=== PATIENT | female | born 1975 | race Caucasian/White ===

== ENCOUNTER 2020-06-25 15:40 | Emergency (ER) | payer MEDICAID, SELFPAY ==
[2020-06-25 17:17] VITALS: BP 133/59; PULSE 85; RESP 16; TEMP 36.8; O2SAT 98; BMI 25.6
[2020-06-25 17:56] LABS: Glucose Urine UA NEG (NEG); Leukocyte Esterase Urine NEG (NEG); Nitrite Urine NEG (NEG); PH 5.5 (5.0-8.0); Specific Gravity - Urine >= 1.030 (1.005-1.025); Urine Blood NEG (NEG); Urine Ketones NEG (NEG); Urine Protein TRACE MG/DL (NEG-TRACE)
[2020-06-25 17:57] LABS: Appearance Urine CLEAR; Color Urine DARK YELLOW
[2020-06-25 18:06] LABS: Bacteria Urine 1+ /LPF; Mucus Urine 2+ /LPF; Squamous Epithelial Cell Urine 2+ /LPF; WBC Urine 0 /HPF (0-4)
[2020-06-25 18:23] LABS: MANUAL DIFF FLAG NO
[2020-06-25 18:25] LABS: Basophils Percent Auto 0.1 % (0-2); Eosinophils Percent Auto 0.5 % (0-4); Hematocrit 35.9 % (37-47); Hemoglobin 11.7 g/dl (12.0-16.0); Imm Gran Abs Auto 0.01 X10*3/uL (0.00-0.03); Imm Gran Pct Auto 0.1 % (0.0-0.4); Lymphocytes Absolute Auto 2.1 X10*3/uL (1.2-4.9); Lymphocytes Percent Auto 25.7 % (20-40); Mean Corpuscular HGB Conc 32.6 g/dl (31.0-35.0); Mean Corpuscular Hemoglobin 29.3 pg (27.0-33.0); Mean Corpuscular Volume 89.8 fL (80-98); Mean Platelet Volume 9.7 fL (9.4-12.3); Monocytes Absolute Auto 0.4 X10*3/uL (0.1-1.2); Monocytes Percent Auto 4.9 % (2-11); Neutrophils Absolute Auto 5.6 X10*3/uL (2.0-8.3); Neutrophils Percent Auto 68.7 % (45-73); Platelet Count 275 X10*3/uL (160-400); Red Cell Distribution Width 13.4 % (11.0-16.0); White Blood Count 8.2 X10*3/uL (4.8-10.8)
[2020-06-25 18:51] LABS: Anion Gap 14 (12-20); Blood Urea Nitrogen 8 mg/dL (9-16); Calcium 9.1 mg/dL (8.4-10.2); Carbon Dioxide 23 mmol/L (22-29); Chloride 106 mmol/L (96-108); Creatinine Clr Calc Pharmacy 92.4; Estimated Glomerular Filt Rate > 60; Glucose Random 118 mg/dL (60-115); Potassium 3.8 mmol/L (3.3-5.1); Sodium 139 mmol/L (135-145)
[2020-06-25 20:43] VITALS: BP 129/85; PULSE 123; RESP 18; TEMP 36.7; O2SAT 99
--- NOTE | 2020-06-25 20:50 | ED_ITS ---
HPI - Abdominal Pain General Chief Complaint: Abdominal Pain Stated Complaint: ?UTI Time Seen by Provider: 06/25/20 20:50 Source: patient Mode of arrival: ambulatory Limitations: no limitations History of Present Illness HPI narrative: 45 y/o female presenting with lower abdominal pain and lower back pain for the last 5 days. She also reports urinary frequency and feeling of a full bladder all the time. She is sexually active but is not concerned about STI and denies chance of . No vaginal discharge or bleeding. LMP 1 month ago. She denies N/V/D. She denies fevers or chills at home. She denies hematuria or flank pain. She has history of a UTI and states this feels similar. MD elicited complaint: abdominal pain Pertinent past history: past UTI Onset (ago): day(s) (5) Pain Consistency: constant Location: suprapubic Severity: moderate Pain scale (0-10): 7 Quality: cramping, aching and fullness Radiation: LLQ and back Migration to: no migration Exacerbating factors: movement Relieving factors: nothing Associated symptoms: denies other symptoms Related Data Patient : No Previous Rx's Medication Instructions Recorded cefuroxime axetil 250 mg PO BID #10 tab 06/25/20 ibuprofen 600 mg PO Q8H PRN #20 tab 06/25/20 phenazopyridine [Pyridium] 100 mg PO TID PRN #6 tab 06/25/20 Allergies Allergy/AdvReac Type Severity Reaction Status Date / Time No Known Allergies Allergy Unknown UNKNOWN Unverified 02/09/20 15:35 [NO KNOWN ALLERGIES] Review of Systems Review of Systems Constitutional: No Fever, No Chills ENT/Mouth: No sore throat, No Rhinorrhea, No Swallowing Difficulty Eyes: No Eye Pain, No Swelling, No Redness Cardiovascular: No Chest Pain, No SOB, No Orthopnea, No Edema Respiratory: No Cough, No Sputum, No Wheezing, No dyspnea Gastrointestinal: No Nausea, No Vomiting, No Diarrhea, + abdominal Pain, No Hematochezia, No Melena Genitourinary: No Dysuria, + Urinary Frequency, No Hematuria Musculoskeletal: No joint pain, + Myalgias Skin: No Skin Lesions, No rash Neuro: No Weakness, No Numbness, No Dizziness, No Headache Psych: No Anxiety/Panic, No Depression Heme/Lymph: No Bruising, No Lymphadenopathy Endocrine: No Polyuria, No Polydipsia Physical Exam Vital Signs: Vital Signs: Last Vital Signs Temp 98.0 F 06/25/20 20:43 Pulse 65 06/25/20 22:00 Resp 18 06/25/20 22:00 BP 103/66 06/25/20 22:00 Pulse Ox 98 06/25/20 22:00 Body Mass Index 25.6 Appearance: Alert. Oriented X3. No acute distress. Eyes: Pupils equal, round and reactive to light. ENT: Pharynx normal. Neck: Normal inspection. Neck supple. CVS: Normal heart rate and rhythm. Pulses normal. Respiratory: No respiratory distress. Breath sounds normal. Abdomen: Soft with suprapubic tenderness, +BS x4 Back: Lower back soft tissue tenderness, no CVA tenderness Skin: Skin warm and dry. Normal skin color. Normal skin turgor. No rashes. Extremities: No lower extremity edema. Neuro: Oriented X 3. No motor deficit. No sensory deficit. Course Course Course Narrative: 45 y/o female presenting with suprapubic pain, urinary frequency and low back pain x5 days. UA showing 1+ bacteria but no LE or nitrites. No hematuria, doubt kidney stones. Tachycardic to 120s, no fever, c/o suprapubic pain. She is non-toxic appearing. Labs are reassuring, no elevation in WBC, renal function is normal. Will check lactic acid and cultures. Will give IVF, Rocephin and dose of Pyridium now for bladder pain. Juan reassess. Reevaluation(s) Reevaluation #1: Lactic acid normal. After IVF and meds patient's pain is improved and HR down to 80's. She is stable for discharge with treatment for UTI. MDM - Abdominal Pain Lab Data Result diagrams: 06/25/20 18:19 06/25/20 18:19 Labs: Lab Results 06/25/20 06/25/20 06/25/20 Range/Units 17:49 18:19 18:19 WBC 8.2 (4.8-10.8) X10*3/uL RBC 4.00 L (4.20-5.50) X10*6/uL Hgb 11.7 L (12.0-16.0) g/dl Hct 35.9 L (37-47) % MCV 89.8 (80-98) fL MCH 29.3 (27.0-33.0) pg MCHC 32.6 (31.0-35.0) g/dl RDW 13.4 (11.0-16.0) % Plt Count 275 (160-400) X10*3/uL MPV 9.7 (9.4-12.3) fL Immature Gran % (Auto) 0.1 (0.0-0.4) % Neut % (Auto) 68.7 (45-73) % Lymph % (Auto) 25.7 (20-40) % [place] % (Auto) 4.9 (2-11) % Eos % (Auto) 0.5 (0-4) % Baso % (Auto) 0.1 (0-2) % Lymph # (Auto) 2.1 (1.2-4.9) X10*3/uL [place] # (Auto) 0.4 (0.1-1.2) X10*3/uL Eos # (Auto) 0.0 (0.0-0.4) X10*3/uL Baso # (Auto) 0.0 (0.0-0.2) X10*3/uL Abs Immat Gran (auto) 0.01 (0.00-0.03) X10*3/uL Absolute Neuts (auto) 5.6 (2.0-8.3) X10*3/uL Absolute Nucleated RBC 0.000 (0.0-0.012) X10*3/uL Nucleated RBC % (auto) 0.0 (0.0-0.2) /100WBC Sodium 139 (135-145) mmol/L Potassium 3.8 (3.3-5.1) mmol/L Chloride 106 (96-108) mmol/L Carbon Dioxide 23 (22-29) mmol/L Anion Gap 14 (12-20) BUN 8 L (9-16) mg/dL Creatinine 0.68 (0.5-1.4) mg/dL Estim Creat Clear Calc 92.4 Estimated GFR > 60 Random Glucose 118 H (60-115) mg/dL Lactic Acid (0.5-2.0) mmol/L Calcium 9.1 (8.4-10.2) mg/dL Urine Color DARK YELLOW Urine Appearance CLEAR Urine pH 5.5 (5.0-8.0) Ur Specific [employer] >= 1.030 H (1.005-1.025) Urine Protein TRACE (NEG-TRACE) MG/DL Urine Glucose (UA) NEG (NEG) MG/DL Urine Ketones NEG (NEG) MG/DL Urine Blood NEG (NEG) Urine Nitrite NEG (NEG) Ur Leukocyte Esterase NEG (NEG) Urine RBC 1-4 (0) /HPF Urine WBC 0 (0-4) /HPF Ur Squamous Epith Cells 2+ /LPF Urine Bacteria 1+ /LPF Urine Mucus 2+ /LPF Urine Test NEGATIVE (NEGATIVE) 06/25/20 Range/Units 21:24 WBC (4.8-10.8) X10*3/uL RBC (4.20-5.50) X10*6/uL Hgb (12.0-16.0) g/dl Hct (37-47) % MCV (80-98) fL MCH (27.0-33.0) pg MCHC (31.0-35.0) g/dl RDW (11.0-16.0) % Plt Count (160-400) X10*3/uL MPV (9.4-12.3) fL Immature Gran % (Auto) (0.0-0.4) % Neut % (Auto) (45-73) % Lymph % (Auto) (20-40) % [place] % (Auto) (2-11) % Eos % (Auto) (0-4) % Baso % (Auto) (0-2) % Lymph # (Auto) (1.2-4.9) X10*3/uL [place] # (Auto) (0.1-1.2) X10*3/uL Eos # (Auto) (0.0-0.4) X10*3/uL Baso # (Auto) (0.0-0.2) X10*3/uL Abs Immat Gran (auto) (0.00-0.03) X10*3/uL Absolute Neuts (auto) (2.0-8.3) X10*3/uL Absolute Nucleated RBC (0.0-0.012) X10*3/uL Nucleated RBC % (auto) (0.0-0.2) /100WBC Sodium (135-145) mmol/L Potassium (3.3-5.1) mmol/L Chloride (96-108) mmol/L Carbon Dioxide (22-29) mmol/L Anion Gap (12-20) BUN (9-16) mg/dL Creatinine (0.5-1.4) mg/dL Estim Creat Clear Calc Estimated GFR Random Glucose (60-115) mg/dL Lactic Acid 1.0 (0.5-2.0) mmol/L Calcium (8.4-10.2) mg/dL Urine Color Urine Appearance Urine pH (5.0-8.0) Ur Specific [employer] (1.005-1.025) Urine Protein (NEG-TRACE) MG/DL Urine Glucose (UA) (NEG) MG/DL Urine Ketones (NEG) MG/DL Urine Blood (NEG) Urine Nitrite (NEG) Ur Leukocyte Esterase (NEG) Urine RBC (0) /HPF Urine WBC (0-4) /HPF Ur Squamous Epith Cells /LPF Urine Bacteria /LPF Urine Mucus /LPF Urine Test (NEGATIVE) Discharge Plan Discharge Clinical Impression: Urinary tract infection Qualifiers: Urinary tract infection type: acute cystitis Hematuria presence: without hematuria Qualified Code(s): N30.00 - Acute cystitis without hematuria Patient Disposition: Home, Self-Care Instructions: Urinary Tract Infection in Women (ED) Additional Instructions: Your lab workup today was unremarkable. Take the prescribed antibiotics for UTI - start them tomorrow. You were given an IV dose while in the ER. Rest and stay hydrated. Take the prescribed medication as needed for pain and bladder spasm - this is known to cause your urine to turn orange. Take Motrin and/or Tylenol as needed for pain. Follow up with your doctor this week. No sex until you symptoms are completely resolved. If you pain worsens or if you develop any new, concerning symptom come back to the ER for further evaluation. Prescriptions: New cefuroxime axetil 250 mg tablet 250 mg PO BID Qty: 10 RF: 0 phenazopyridine [Pyridium] 100 mg tablet 100 mg PO TID PRN (Reason: pain) Qty: 6 RF: 0 ibuprofen 600 mg tablet 600 mg PO Q8H PRN (Reason: fever or pain) Qty: 20 RF: 0 Stand Alone Forms: Work/School Release [facility] Social History Social History Alcohol intake: never Smoking Status: Current every day smoker Substance Use Type: Marijuana Substance Use Frequency: Daily Last Used Substance: Just Prior to Admission Any prior treatment program specific to substance use: No Advance Directives: No Advance Directives Information Provided: Yes
[2020-06-25 21:24] LABS: UPreg QC Valid YES; Urine Pregnancy NEGATIVE (NEGATIVE)
[2020-06-25] MEDS: 0.9 % Sodium Chloride 1,000 ML 999 ML IVCONT (21:39)
[2020-06-25] MEDS: Phenazopyridine HCL 100 MG TABLET PO (21:40)
[2020-06-25] MEDS: cefTRIAXone sodium 1 GM in 0.9 % Sodium Chloride 50 ML IV (21:41)
[2020-06-25] MEDS: Ketorolac Tromethamine 30 MG/ML VIAL IVPUSH (21:41)
[2020-06-25] MEDS: Acetaminophen 325 MG TABLET 650 MG PO (21:41)
[2020-06-25 22:00] VITALS: BP 103/66; PULSE 65; RESP 18; O2SAT 98
[2020-06-25 23:26] VITALS: BP 100/60; PULSE 70; RESP 16; O2SAT 97
== END 2020-06-26 00:38 | disposition home or self-care (01) ==
PROVIDERS: Physician Assistant; Emergency Provider Emergency Medicine Emergency Medical Services
DX: N30.00 Acute cystitis without hematuria (principal); Z87.440 Personal history of urinary (tract) infections; F17.200 Nicotine dependence, unspecified, uncomplicated
CPT/HCPCS: 36415; 80048; 81001; 81025; 83605; 85025; 87040; 96361; 96365; 96375; 99284; 99285; J0696; J1885

== ENCOUNTER 2021-04-24 13:43 | Outpatient (REF) | payer MEDICAID, SELFPAY ==
--- NOTE | ~2021-04-24 | MM_ITS ---
EXAMINATION: MM DIAGNOSTIC DIGITAL BREAST TOMOSYNTHESIS, BILATERAL US BREAST LIMITED, RIGHT CLINICAL INFORMATION: Right breast mass 11 o'clock, near clavicle. The lifetime risk of breast cancer based on the Tyrer-Cuzick Model is 13.5%. COMPARISON: Mammography: None TECHNIQUE: Digital breast tomosynthesis was performed in both the craniocaudal and mediolateral oblique views along with computer-aided detection (CAD). Synthesized 2D images were generated from the tomosynthesis. Targeted right breast ultrasound. FINDINGS: The breasts are heterogeneously dense, which may obscure small masses (ACR BI-RADS breast composition Category c). MAMMOGRAPHY: There are no significant masses, abnormal calcifications, or other abnormalities. ULTRASOUND: Ultrasound examination of the right breast in the upper outer quadrant demonstrated a well-circumscribed, hypoechoic lesion without internal vascularity with mild distal sound enhancement and no distal sound shadowing measuring approximately 8 x 5 x 9 mm in size. This may represent a complex cyst or fibroadenoma and has a benign appearance. Recommend 6-month follow up ultrasound examination for continued surveillance. MM/MM tomosynthesis diagnostic BI IMPRESSION: 1. No suspicious mass identified in the region of palpable abnormality. 2. Well-circumscribed, hypoechoic lesion 10-o'clock position, 3 cm from the nipple, with the appearance of either a complex cyst or fibroadenoma. Recommend 6-month follow up ultrasound. ASSESSMENT: BI-RADS 3: Probably Benign Short-term interval follow up. RECOMMENDATION: Diagnostic ultrasound in 6 months. Results were discussed with the patient at time of visit. This patient's information was entered into a reminder system with a target due date for their next mammogram.
--- NOTE | ~2021-04-24 | US_ITS ---
EXAMINATION: US DIAGNOSTIC ULTRASOUND BREAST, RIGHT CLINICAL INFORMATION: Palpable abnormality right breast 11:00 position subclavicular.. COMPARISON: Mammography of same day. TECHNIQUE: Ultrasound of the breast is performed with real-time jane scale imaging and color Doppler. FINDINGS: Ultrasound examination of the right breast in the upper outer quadrant demonstrated a well-circumscribed hypoechoic lesion without internal vascularity with mild distal sound enhancement and no distal sound shadowing measuring approximately 8 x 5 x 9 mm in size. This may represent a complex cyst or fibroadenoma and has a benign appearance. Recommend 6 month follow-up ultrasound examination for continued surveillance. Results are discussed with the patient at time of visit. US/US breast RT limited IMPRESSION: No suspicious mass identified in region of palpable abnormality. Well-circumscribed hypoechoic lesion 10:00 position 3 cm from the nipple with the appearance of either complex cyst or fibroadenoma. Recommend 6 month follow-up ultrasound. ASSESSMENT: BI-RADS 3: Probably Benign RECOMMENDATION: Diagnostic ultrasound in 6 months.
== END 2021-04-24 13:44 | disposition home or self-care (01) ==
LOC: HO.MAMMO 13:43
PROVIDERS: Visit Provider Nurse Practitioner
DX: N63.11 Unspecified lump in the right breast, upper outer quadrant (principal)
CPT/HCPCS: 76642; 77062; 77066

== ENCOUNTER 2021-10-14 12:33 | Emergency (ER) | payer MEDICAID, SELFPAY ==
[2021-10-14 12:39] VITALS: BP 179/89; PULSE 116; RESP 17; TEMP 36.7; O2SAT 98; BMI 27.4
[2021-10-14 13:06] LABS: MANUAL DIFF FLAG NO
[2021-10-14 13:10] LABS: Basophils Percent Auto 0.1 % (0-2); Eosinophils Percent Auto 0.3 % (0-4); Hematocrit 43.8 % (37.0-47.0); Hemoglobin 14.8 g/dl (12.0-16.0); Imm Gran Abs Auto 0.02 X10*3/uL (0.00-0.03); Imm Gran Pct Auto 0.3 % (0.0-0.4); Lymphocytes Percent Auto 27.7 % (20-40); Mean Corpuscular HGB Conc 33.8 g/dl (31.0-35.0); Mean Corpuscular Hemoglobin 31.8 pg (27.0-33.0); Mean Corpuscular Volume 94.2 fL (80.0-98.0); Mean Platelet Volume 9.4 fL (9.4-12.3); Monocytes Absolute Auto 0.6 X10*3/uL (0.1-1.2); Monocytes Percent Auto 8.7 % (2-11); Neutrophils Absolute Auto 4.5 x10*3/uL (2.0-8.3); Neutrophils Percent Auto 62.9 % (45-73); Platelet Count 271 X10*3/uL (160-400); Red Blood Count 4.65 X10*6/uL (4.20-5.50); Red Cell Distribution Width 15.9 % (11.0-16.0); White Blood Count 7.1 X10*3/uL (4.8-10.8)
[2021-10-14 13:34] LABS: Ethanol < 10 mg/dL
[2021-10-14 13:52] LABS: Amphetamine Screen Urine Not Detected (Not Detect); Barbiturates, Urine Not Detected (Not Detect); Benzodiazepines Screen Urine Not Detected (Not Detect); Cannabinoid Screen Urine POSITIVE (Not Detect); Cocaine Screen Urine Not Detected (Not Detect); Fentanyl, urine Not Detected (Not Detect); Opiate Screen Urine Not Detected (Not Detect); Phencyclidine Screen Urine Not Detected (Not Detect)
--- NOTE | 2021-10-14 21:55 | ED_ITS ---
HPI - Nausea/Vomiting/Diarrhea General Chief complaint: ETOH/Substance Use Stated complaint: vomiting Time Seen by Provider: 10/14/21 21:24 Source: patient Mode of arrival: ambulatory Limitations: no limitations History of Present Illness HPI Narrative: usually drinks about 10 nips a day last drink was yesterday, has been working with her PCP to get off ETOH will do detox from home if she feels better MD elicited complaint: nausea, vomiting and abdominal pain Pertinent past history: alcohol abuse and pacreatitis Onset (ago): day(s) (3) Description of vomiting: watery Associated nausea: Yes Associated abdominal pain: Yes Location of pain: epigastric Pain consistency: constant Severity: moderate Quality: aching Exacerbating factors: eating and alcohol intake Relieving factors: none Context: alcohol abuse Associated symptoms: loss of appetite, malaise and nausea/vomiting Related Data Previous Rx's Medication Instructions Recorded cefuroxime axetil 250 mg tablet 250 mg PO BID #10 tab 06/25/20 ibuprofen 600 mg tablet 600 mg PO Q8H PRN #20 tab 06/25/20 phenazopyridine 100 mg tablet 100 mg PO TID PRN #6 tab 06/25/20 (Pyridium) chlordiazepoxide HCl 25 mg capsule 25 mg PO Q6-8H PRN #14 cap 10/14/21 famotidine 20 mg tablet (Pepcid) 20 mg PO DAILY PRN #30 tab 10/14/21 ondansetron 4 mg disintegrating 4 mg PO Q8H PRN #20 tab 10/14/21 tablet Allergies Allergy/AdvReac Type Severity Reaction Status Date / Time No Known Allergies Allergy Unknown UNKNOWN Unverified 02/09/20 15:35 [NO KNOWN ALLERGIES] Review of Systems Review of Systems: Constitutional : No Weight loss, No Fever, No Chills ENT/Mouth : No sore throat, No Rhinorrhea Eyes: No Swelling, No Redness Cardiovascular : No Chest Pain, No SOB, NoEdema Respiratory : No Cough, No Sputum, No Wheezing Gastrointestinal : Positive Nausea, Positive Vomiting, no Diarrhea, positive abdominal Pain, No Hematochezia, No Melena Genitourinary : No Dysuria, No Urinary Frequency, No Hematuria, No Urgency Musculoskeletal : No joint pain, No Myalgias, No Joint Swelling Skin : No Skin Lesions, No rash Neuro : No Weakness, No Numbness, No Dizziness, No Headache Psych : No Anxiety/Panic, No Depression Heme/Lymph: No Bruising, No Lymphadenopathy Endocrine : No Polyuria, No Polydipsia All other systems reviewed and are negative. Gastrointestinal: Gastrointestinal: Reports nausea PMFSH Past Medical History Attestation statement: The following information was validated with the patient. Medical History Alcohol abuse Anxiety Social History Social History (Updated 10/14/21 @ 22:00 by Nilda Parrish DO) Alcohol intake: current Alcohol intake frequency: 3 or more drinks per day A lcohol type: hard liquor Patient Tobacco Use Status: Tobacco use Unknown Use of substances other than those prescribed or required for medical reasons: No Substance Use Type: Marijuana Advance Directives: No Advance Directives Information Provided: No Physical Exam Vital Signs: Vital Signs: Last Vital Signs Temp 98.8 F 10/14/21 22:32 Pulse 70 10/14/21 22:32 Resp 12 10/14/21 22:32 BP 135/70 10/14/21 22:32 Pulse Ox 96 10/14/21 22:32 BMI result Body Mass Index 27.4 Appearance: Alert. Oriented X3. Anxious mild acute distress. Tearful no SI Eyes: Pupils equal, round and reactive to light. ENT: Pharynx mild dry MM Neck: Normal inspection. Neck supple. CVS: Normal heart rate and rhythm. Pulses normal. Respiratory: No respiratory distress. Breath sounds normal. Abdomen: Soft and mild epigastric ttp no rebound Skin: Skin warm and dry. Normal skin color. Normal skin turgor. Extremities: No lower extremity edema. No calf ttp Neuro: Oriented X 3. No motor deficit. No sensory deficit. slightly shaky Course Course Course Narrative: labs unremarkable at this time - if able to tolerate PO will DC home VS drastically improved feels better wants to go home, PO librium prior to DC until she can get Rx, daughter to come get patient MDM - Nausea/Vomiting/Diarrhea MDM Narrative Medical decision making narrative: 46 yo female with hx of ETOH abuse, pancreatitis here with c/o 3 days of n/v abdominal pain unable to eat or drink last drank 10 days ago hx of same in past at this time has plan in place with PCP to get off ETOH. will obtain basic labs, IVF x 2L, IV ativan 2mg, IV pepcid - dispo per results and clinical findings. Lab Data Result diagrams: 10/14/21 12:54 10/14/21 22:15 Labs: Lab Results 10/14/21 10/14/21 10/14/21 Range/Units 12:54 12:54 12:54 WBC 7.1 (4.8-10.8) X10*3/uL RBC 4.65 (4.20-5.50) X10*6/uL Hgb 14.8 (12.0-16.0) g/dl Hct 43.8 (37.0-47.0) % MCV 94.2 (80.0-98.0) fL MCH 31.8 (27.0-33.0) pg MCHC 33.8 (31.0-35.0) g/dl RDW 15.9 (11.0-16.0) % Plt Count 271 (160-400) X10*3/uL MPV 9.4 (9.4-12.3) fL Immature Gran % (Auto) 0.3 (0.0-0.4) % Neut % (Auto) 62.9 (45-73) % Lymph % (Auto) 27.7 (20-40) % [place] % (Auto) 8.7 (2-11) % Eos % (Auto) 0.3 (0-4) % Baso % (Auto) 0.1 (0-2) % Lymph # (Auto) 2.0 (1.2-4.9) X10*3/uL [place] # (Auto) 0.6 (0.1-1.2) X10*3/uL Eos # (Auto) 0.0 (0.0-0.4) X10*3/uL Baso # (Auto) 0.0 (0.0-0.2) X10*3/uL Abs Immat Gran (auto) 0.02 (0.00-0.03) X10*3/uL Absolute Neuts (auto) 4.5 (2.0-8.3) x10*3/uL Absolute Nucleated RBC 0.000 (0.0-0.012) X10*3/uL Nucleated RBC % (auto) 0.0 (0.0-0.2) /100WBC Sodium (135-145) mmol/L Potassium (3.3-5.1) mmol/L Chloride (96-108) mmol/L Carbon Dioxide (22-29) mmol/L Anion Gap (12-20) BUN (9-16) mg/dL Creatinine (0.5-1.4) mg/dL Estim Creat Clear Calc Estimated GFR Random Glucose (60-115) mg/dL Calcium (8.4-10.2) mg/dL Magnesium (1.6-2.6) mg/dL Total Bilirubin (0.0-1.0) mg/dL Direct Bilirubin (0.0-0.5) mg/dL AST (5-31) U/L ALT (0-31) U/L Alkaline Phosphatase (39-117) U/L Total Protein (6.5-8.0) g/dL Albumin (3.5-5.0) g/dL Lipase (8-78) U/L Urine Opiates Screen Not Detected (Not Detect) Urine Fentanyl Screen Not Detected (Not Detect) Ur Barbiturates Screen Not Detected (Not Detect) Ur Phencyclidine Scrn Not Detected (Not Detect) Ur Amphetamines Screen Not Detected (Not Detect) U Benzodiazepines Scrn Not Detected (Not Detect) Urine Cocaine Screen Not Detected (Not Detect) U Marijuana (THC) Screen POSITIVE H (Not Detect) Ethyl Alcohol < 10 mg/dL 10/14/21 Range/Units 22:15 WBC (4.8-10.8) X10*3/uL RBC (4.20-5.50) X10*6/uL Hgb (12.0-16.0) g/dl Hct (37.0-47.0) % MCV (80.0-98.0) fL MCH (27.0-33.0) pg MCHC (31.0-35.0) g/dl RDW (11.0-16.0) % Plt Count (160-400) X10*3/uL MPV (9.4-12.3) fL Immature Gran % (Auto) (0.0-0.4) % Neut % (Auto) (45-73) % Lymph % (Auto) (20-40) % [place] % (Auto) (2-11) % Eos % (Auto) (0-4) % Baso % (Auto) (0-2) % Lymph # (Auto) (1.2-4.9) X10*3/uL [place] # (Auto) (0.1-1.2) X10*3/uL Eos # (Auto) (0.0-0.4) X10*3/uL Baso # (Auto) (0.0-0.2) X10*3/uL Abs Immat Gran (auto) (0.00-0.03) X10*3/uL Absolute Neuts (auto) (2.0-8.3) x10*3/uL Absolute Nucleated RBC (0.0-0.012) X10*3/uL Nucleated RBC % (auto) (0.0-0.2) /100WBC Sodium 137 (135-145) mmol/L Potassium 3.8 (3.3-5.1) mmol/L Chloride 102 (96-108) mmol/L Carbon Dioxide 21 L (22-29) mmol/L Anion Gap 18 (12-20) BUN 12 (9-16) mg/dL Creatinine 0.67 (0.5-1.4) mg/dL Estim Creat Clear Calc 95.8 Estimated GFR > 60 Random Glucose 106 (60-115) mg/dL Calcium 9.5 (8.4-10.2) mg/dL Magnesium 2.4 (1.6-2.6) mg/dL Total Bilirubin 1.3 H (0.0-1.0) mg/dL Direct Bilirubin 0.5 (0.0-0.5) mg/dL AST 54 H (5-31) U/L ALT 30 (0-31) U/L Alkaline Phosphatase 124 H (39-117) U/L Total Protein 8.4 H (6.5-8.0) g/dL Albumin 4.7 (3.5-5.0) g/dL Lipase 45 (8-78) U/L Urine Opiates Screen (Not Detect) Urine Fentanyl Screen (Not Detect) Ur Barbiturates Screen (Not Detect) Ur Phencyclidine Scrn (Not Detect) Ur Amphetamines Screen (Not Detect) U Benzodiazepines Scrn (Not Detect) Urine Cocaine Screen (Not Detect) U Marijuana (THC) Screen (Not Detect) Ethyl Alcohol mg/dL Discharge Plan Discharge Clinical Impression: Alcohol withdrawal syndrome Qualifiers: Complication of substance-induced condition: uncomplicated Qualified Code(s): F10.230 - Alcohol dependence with withdrawal, uncomplicated Vomiting Qualifiers: Vomiting type: unspecified Nausea presence: with nausea Qualified Code(s): R11.2 - Nausea with vomiting, unspecified Patient Disposition: Home, Self-Care Instructions: Abuse of Alcohol (ED), Acute Nausea and Vomiting (ED) Additional Instructions: return to ED for any worsening symptoms or concerns labs unremarkable please follow up with your doctor avoid alcohol Prescriptions: New famotidine [Pepcid] 20 mg tablet 20 mg PO DAILY PRN (Reason: abdominal discomfort) Qty: 30 0RF ondansetron 4 mg tablet,disintegrating 4 mg PO Q8H PRN (Reason: nausea and vomiting) Qty: 20 0RF chlordiazepoxide HCl 25 mg capsule 25 mg PO Q6-8H PRN (Reason: alcohol withdrawal) Qty: 14 0RF Rx Instructions: partial fill okay No Action cefuroxime axetil 250 mg tablet 250 mg PO BID Qty: 10 0RF phenazopyridine [Pyridium] 100 mg tablet 100 mg PO TID PRN (Reason: pain) Qty: 6 0RF ibuprofen 600 mg tablet 600 mg PO Q8H PRN (Reason: fever or pain) Qty: 20 0RF Stand Alone Forms: Work/School Release
[2021-10-14] MEDS: 0.9 % Sodium Chloride 1,000 ML 999 ML IVCONT (22:21)
[2021-10-14] MEDS: Famotidine/PF 20 MG/2 ML VIAL IVPUSH (22:21)
[2021-10-14] MEDS: LORazepam 2 MG/ML VIAL IVPUSH (22:21)
[2021-10-14] MEDS: Magnesium Sulfate/H2O 2 GM/50 ML PIGGYBACK IV (22:21)
[2021-10-14] MEDS: ondansetron HCL 4 MG/2 ML VIAL IVPUSH (22:22)
[2021-10-14 22:32] VITALS: BP 135/70; PULSE 70; RESP 12; TEMP 37.1; O2SAT 96
[2021-10-14 22:47] LABS: Alanine Aminotransferase 30 U/L (0-31); Albumin Level 4.7 g/dL (3.5-5.0); Alkaline Phosphatase 124 U/L (39-117); Anion Gap 18 (12-20); Aspartate Amino Transferase 54 U/L (5-31); Bilirubin Direct 0.5 mg/dL (0.0-0.5); Bilirubin Total 1.3 mg/dL (0.0-1.0); Blood Urea Nitrogen 12 mg/dL (9-16); Calcium 9.5 mg/dL (8.4-10.2); Carbon Dioxide 21 mmol/L (22-29); Chloride 102 mmol/L (96-108); Creatinine Clr Calc Pharmacy 95.8; Estimated Glomerular Filt Rate > 60; Glucose Random 106 mg/dL (60-115); Lipase 45 U/L (8-78); Magnesium 2.4 mg/dL (1.6-2.6); Potassium 3.8 mmol/L (3.3-5.1); Sodium 137 mmol/L (135-145); Total Protein 8.4 g/dL (6.5-8.0)
[2021-10-15] MEDS: chlordiazePOXIDE HCl 25 MG CAPSULE PO (00:13)
== END 2021-10-15 00:42 | disposition home or self-care (01) ==
PROVIDERS: Emergency Provider Emergency Medicine; PCP Nurse Practitioner
DX: F10.230 Alcohol dependence with withdrawal, uncomplicated (principal); Y90.0 Blood alcohol level of less than 20 mg/100 ml; R11.2 Nausea with vomiting, unspecified; F12.90 Cannabis use, unspecified, uncomplicated
CPT/HCPCS: 36415; 80048; 80076; 80307; 82077; 83690; 83735; 85025; 96361; 96365; 96366; 96375; 99284; J2060; J2405; J3475

== ENCOUNTER 2021-10-23 12:42 | Outpatient (REF) | payer MEDICAID, SELFPAY ==
--- NOTE | ~2021-10-23 | US_ITS ---
EXAMINATION: US DIAGNOSTIC ULTRASOUND BREAST, RIGHT CLINICAL INFORMATION: Six-month follow up right breast nodule. COMPARISON: 04/24/2021 TECHNIQUE: Targeted right breast ultrasound upper outer quadrant. FINDINGS: At the 10 o'clock position of the right breast approximately 3 cm from the nipple there is again noted to be a well-circumscribed hypoechoic lesion without distal sound shadowing or enhancement measuring approximately 7 x 5 x 9 mm in size. It is wider than it is tall without vascularity. The appearance is stable from study of 04/24/2021. Results are discussed with the patient at time of visit. US/US breast RT limited IMPRESSION: Stable appearance of right breast density 10 o'clock position 3 cm from nipple. Six-month followup bilateral mammography and targeted right breast ultrasound recommended. ASSESSMENT: BI-RADS 3: Probably Benign. RECOMMENDATION: Diagnostic mammography in 6 months. Right breast ultrasound. This patient's information was entered into a reminder system with a target due date for their next mammogram.
== END 2021-10-23 12:43 | disposition home or self-care (01) ==
LOC: HO.MAMMO 12:42
PROVIDERS: PCP Nurse Practitioner; Visit Provider Nurse Practitioner
DX: N63.11 Unspecified lump in the right breast, upper outer quadrant (principal)
CPT/HCPCS: 76642

== ENCOUNTER 2021-11-22 15:19 | Inpatient (IN) | payer MEDICAID, SELFPAY ==
--- NOTE | ~2021-11-22 | CT_ITS ---
EXAMINATION: CT ABDOMEN AND PELVIS WITHOUT CONTRAST CLINICAL INFORMATION: Acute elevated LFT with upper abdominal pain COMPARISON: 01/01/2020 TECHNIQUE: Multidetector volumetric imaging was performed from the superior aspect of the liver through the pubic symphysis. Sagittal and coronal reformatted images were obtained on the technologist's workstation. This CT examination was performed using dose optimization techniques as appropriate, variously including the following: *Automated exposure control *Adjustment of mA and/or kV according to patient size (this includes techniques or standardized protocols for targeted exams where dose is matched to indication/reason for exam; i.e. extremities or head) *Use of iterative reconstruction technique DLP: 495 mGy-cm FINDINGS: LUNG BASES: The visualized lung bases are unremarkable. LIVER, GALLBLADDER, AND BILIARY TREE: The liver is normal in size and shape. There is relatively low attenuation. No focal hepatic lesion or biliary ductal dilatation is present. The gallbladder is unremarkable with no evidence of radiopaque gallstones, gallbladder wall thickening, or obvious pericholecystic inflammatory changes. PANCREAS: Unremarkable. SPLEEN: Unremarkable. ADRENAL GLANDS: Unremarkable. KIDNEYS AND URETERS: The kidneys are normal in size, shape, and attenuation. No hydronephrosis, hydroureter, or calculi seen. No perinephric stranding. BLADDER: Unremarkable. GASTROINTESTINAL TRACT: The stomach is unremarkable. Normal caliber small bowel. No obstruction. Normal appendix. No colonic wall thickening or inflammatory change. No free air or free fluid. ABDOMINAL WALL: No significant hernia is appreciated. LYMPH NODES: Normal. VASCULAR: Unremarkable. PELVIC VISCERA: Retroverted uterus. No adnexal mass. OSSEOUS STRUCTURES: No acute or suspicious osseous abnormality. CT/CT abdomen pelvis wo con IMPRESSION: No acute findings in the abdomen or pelvis. No inflammatory changes. Relatively low-attenuation of the liver suggestive of hepatic steatosis. Fleischner guidelines were followed.
--- NOTE | ~2021-11-22 | US_ITS ---
EXAMINATION: US ABDOMEN LIMITED CLINICAL INFORMATION: Evaluate for cholecystitis. COMPARISON: CT abdomen/pelvis 01/01/2020. TECHNIQUE: Real-time imaging of the gallbladder. US/US abdomen limited FINDINGS/IMPRESSION: Targeted sonographic evaluation of the gallbladder. No evidence of cholelithiasis, wall thickening nor pericholecystic free fluid. The common bile duct is mildly prominent measuring up to 0.9 cm in diameter. Further evaluation with MRCP could be obtained if choledocholithiasis is suspected.
--- NOTE | 2021-11-22 15:24 | ECG_ITS ---
Test Reason : cp Blood Pressure : / mmHG Vent. Rate : 101 BPM Atrial Rate : 101 BPM P-R Int : 146 ms QRS Dur : 094 ms QT Int : 362 ms P-R-T Axes : 054 001 025 degrees QTc Int : 469 ms Sinus tachycardia Incomplete right bundle branch block Borderline ECG When compared with ECG of 01-JAN-2020 19:08, No significant change was found Referred By: Generic ED Physician Electronically Signed By:IRVIN SOLIS
[2021-11-22 15:25] VITALS: BP 152/99; PULSE 111; RESP 18; TEMP 36.6; O2SAT 98; BMI 27.4
[2021-11-22 15:48] LABS: MANUAL DIFF FLAG NO
[2021-11-22 15:49] LABS: Basophils Percent Auto 0.4 % (0-2); Eosinophils Percent Auto 0.4 % (0-4); Hematocrit 42.6 % (37.0-47.0); Hemoglobin 14.6 g/dl (12.0-16.0); Imm Gran Abs Auto 0.01 X10*3/uL (0.00-0.03); Imm Gran Pct Auto 0.2 % (0.0-0.4); Lymphocytes Absolute Auto 0.8 X10*3/uL (1.2-4.9); Lymphocytes Percent Auto 14.6 % (20-40); Mean Corpuscular HGB Conc 34.3 g/dl (31.0-35.0); Mean Corpuscular Hemoglobin 32.1 pg (27.0-33.0); Mean Corpuscular Volume 93.6 fL (80.0-98.0); Mean Platelet Volume 9.2 fL (9.4-12.3); Monocytes Absolute Auto 0.3 X10*3/uL (0.1-1.2); Monocytes Percent Auto 5.2 % (2-11); Neutrophils Absolute Auto 4.1 x10*3/uL (2.0-8.3); Neutrophils Percent Auto 79.2 % (45-73); Platelet Count 226 X10*3/uL (160-400); Red Blood Count 4.55 X10*6/uL (4.20-5.50); Red Cell Distribution Width 15.7 % (11.0-16.0); White Blood Count 5.2 X10*3/uL (4.8-10.8)
[2021-11-22 16:10] LABS: Alanine Aminotransferase 668 U/L (0-31); Albumin Level 4.4 g/dL (3.5-5.0); Alkaline Phosphatase 154 U/L (39-117); Anion Gap 18 (12-20); Aspartate Amino Transferase 1931 U/L (5-31); Bilirubin Direct 0.4 mg/dL (0.0-0.5); Bilirubin Total 0.7 mg/dL (0.0-1.0); Blood Urea Nitrogen 11 mg/dL (9-16); Calcium 8.6 mg/dL (8.4-10.2); Carbon Dioxide 21 mmol/L (22-29); Chloride 101 mmol/L (96-108); Creatinine Clr Calc Pharmacy 86.8; Estimated Glomerular Filt Rate > 60; Glucose Random 125 mg/dL (60-115); Potassium 3.9 mmol/L (3.3-5.1); Sodium 136 mmol/L (135-145); Total Protein 7.8 g/dL (6.5-8.0)
[2021-11-22 16:12] LABS: Troponin-I High Sensitivity < 3.5 ng/L (<3.5-17.0)
[2021-11-22 16:19] LABS: COVID-19 Test Negative (Negative)
[2021-11-22 16:20] LABS: IDNOW Serial# 16C4AD1C; Influenza A Negative (Negative); Influenza B2 Negative (Negative)
[2021-11-22 19:10] LABS: Lipase 68 U/L (8-78)
--- NOTE | 2021-11-22 19:49 | ED.CHESTPAIN ---
HPI - Chest Pain General Chief Complaint: Chest Pain Stated Complaint: Chest pressure/Nausea/Vomiting Time Seen by Provider: 11/22/21 18:50 Source: patient Mode of arrival: ambulatory Limitations: no limitations History of Present Illness HPI narrative: patient alcoholic drink about car every day with history of pancreatitis in the past comes here for last 5 days of upper abdominal pain mostly on the right side with as such with nausea and vomiting unable to eat much because of vomiting last time patient had food was 3 days ago no fever no chills no radiation pain to the back no abdominal distension no chest pain/ shortness of breath for last 4 days patient has been taking Tylenol 2 tablets every 3-4 hours. No history of hepatitis Related Data Previous Rx's Medication Instructions Recorded cefuroxime axetil 250 mg tablet 250 mg PO BID #10 tabs 06/25/20 ibuprofen 600 mg tablet 600 mg PO Q8H PRN fever or pain 06/25/20 #20 tabs phenazopyridine 100 mg tablet 100 mg PO TID PRN pain 6 doses #6 06/25/20 (Pyridium) tabs chlordiazepoxide HCl 25 mg capsule 25 mg PO Q6-8H PRN alcohol 10/14/21 withdrawal #14 caps famotidine 20 mg tablet (Pepcid) 20 mg PO DAILY PRN abdominal 10/14/21 discomfort #30 tabs ondansetron 4 mg disintegrating 4 mg PO Q8H PRN nausea and 10/14/21 tablet vomiting #20 tabs Allergies Allergy/AdvReac Type Severity Reaction Status Date / Time No Known Allergies Allergy Unknown UNKNOWN Unverified 02/09/20 15:35 [NO KNOWN ALLERGIES] Review of Systems Review of Systems: Yes all other systems are reviewed and are negative PMFSH Past Medical History Medical History Alcohol abuse Anxiety Social History Social History Alcohol intake: current Alcohol intake frequency: 0-2 drinks per day Alcohol type: hard liquor Patient Tobacco Use Status: Current someday Tobacco user Use of substances other than those prescribed or required for medical reasons: No Substance Use Type: Marijuana Advance Directives: No Advance Directives Information Provided: Yes Patient : No Physical Exam Vital Signs: Vital Signs: Last Vital Signs Temp 97.8 F 11/22/21 15:25 Pulse 83 11/22/21 22:49 Resp 16 11/22/21 22:49 BP 160/82 H 11/22/21 22:49 Pulse Ox 97 11/22/21 22:49 O2 Del Method 11/22/21 22:49 BMI result Body Mass Index 27.4 Appearance: Alert. Oriented X3. No acute distress. Eyes: PERRLA, No Nystagmus no pallor or icterus ENT: Pharynx normal. Oral Mucosa moist Neck: Normal inspection. Neck supple. CVS: Normal heart rate and rhythm. Pulses normal. Respiratory: No respiratory distress. Equal air entry bilateral, no wheezing/rales/rhonchi Abdomen: Soft, tender right upper quadrant with guarding no rebound tenderness Bowel sounds are present, no mass palpable, no CVA tenderness Skin: Skin warm and dry. Normal skin color. Normal skin turgor. Extremities: No lower extremity edema. No calf tenderness Neuro: Oriented X 3. No motor deficit. MDM - Chest Pain MDM Narrative Medical decision making narrative: 1 am Patient with acute hepatitis history of alcohol abuse ultrasound negative for gallstones and CT scan also negative for any acute patient been taking Tylenol for last few days and in the past also used to take Tylenol 1-2 tablets twice daily possible patient has Tylenol toxicity along with alcohol hepatitis will admit patient for further evaluation Tylenol level is pending ammonia level also ordered Dr. Francois rose to check Tylenol level Medical Records Data Attestation: I reviewed the patient's medical records. Lab Data Attestation: I reviewed the patient's lab results. Result diagrams: 11/22/21 15:43 11/22/21 15:43 Labs: Lab Results 11/22/21 11/22/21 11/22/21 Range/Units 15:43 15:43 15:43 WBC 5.2 (4.8-10.8) X10*3/uL RBC 4.55 (4.20-5.50) X10*6/uL Hgb 14.6 (12.0-16.0) g/dl Hct 42.6 (37.0-47.0) % MCV 93.6 (80.0-98.0) fL MCH 32.1 (27.0-33.0) pg MCHC 34.3 (31.0-35.0) g/dl RDW 15.7 (11.0-16.0) % Plt Count 226 (160-400) X10*3/uL MPV 9.2 L (9.4-12.3) fL Immature Gran % (Auto) 0.2 (0.0-0.4) % Neut % (Auto) 79.2 H (45-73) % Lymph % (Auto) 14.6 L (20-40) % [place] % (Auto) 5.2 (2-11) % Eos % (Auto) 0.4 (0-4) % Baso % (Auto) 0.4 (0-2) % Lymph # (Auto) 0.8 L (1.2-4.9) X10*3/uL [place] # (Auto) 0.3 (0.1-1.2) X10*3/uL Eos # (Auto) 0.0 (0.0-0.4) X10*3/uL Baso # (Auto) 0.0 (0.0-0.2) X10*3/uL Abs Immat Gran (auto) 0.01 (0.00-0.03) X10*3/uL Absolute Neuts (auto) 4.1 (2.0-8.3) x10*3/uL Absolute Nucleated RBC 0.000 (0.0-0.012) X10*3/uL Nucleated RBC % (auto) 0.0 (0.0-0.2) /100WBC Sodium 136 (135-145) mmol/L Potassium 3.9 (3.3-5.1) mmol/L Chloride 101 (96-108) mmol/L Carbon Dioxide 21 L (22-29) mmol/L Anion Gap 18 (12-20) BUN 11 (9-16) mg/dL Creatinine 0.74 (0.5-1.4) mg/dL Estim Creat Clear Calc 86.8 Estimated GFR > 60 Random Glucose 125 H (60-115) mg/dL Calcium 8.6 D (8.4-10.2) mg/dL Total Bilirubin 0.7 (0.0-1.0) mg/dL Direct Bilirubin 0.4 (0.0-0.5) mg/dL AST 1931 H (5-31) U/L ALT 668 H (0-31) U/L Alkaline Phosphatase 154 H D (39-117) U/L Troponin I High Sens < 3.5 (<3.5-17.0) ng/L Total Protein 7.8 (6.5-8.0) g/dL Albumin 4.4 (3.5-5.0) g/dL Lipase 68 (8-78) U/L COVID-19 (OLIVIA) (Negative) COVID-19 Clin Com Influenza Type A (OPAL) (Negative) Influenza Type B (OPAL) (Negative) Influenza A & B Note 11/22/21 11/22/21 Range/Units 15:43 15:43 WBC (4.8-10.8) X10*3/uL RBC (4.20-5.50) X10*6/uL Hgb (12.0-16.0) g/dl Hct (37.0-47.0) % MCV (80.0-98.0) fL MCH (27.0-33.0) pg MCHC (31.0-35.0) g/dl RDW (11.0-16.0) % Plt Count (160-400) X10*3/uL MPV (9.4-12.3) fL Immature Gran % (Auto) (0.0-0.4) % Neut % (Auto) (45-73) % Lymph % (Auto) (20-40) % [place] % (Auto) (2-11) % Eos % (Auto) (0-4) % Baso % (Auto) (0-2) % Lymph # (Auto) (1.2-4.9) X10*3/uL [place] # (Auto) (0.1-1.2) X10*3/uL Eos # (Auto) (0.0-0.4) X10*3/uL Baso # (Auto) (0.0-0.2) X10*3/uL Abs Immat Gran (auto) (0.00-0.03) X10*3/uL Absolute Neuts (auto) (2.0-8.3) x10*3/uL Absolute Nucleated RBC (0.0-0.012) X10*3/uL Nucleated RBC % (auto) (0.0-0.2) /100WBC Sodium (135-145) mmol/L Potassium (3.3-5.1) mmol/L Chloride (96-108) mmol/L Carbon Dioxide (22-29) mmol/L Anion Gap (12-20) BUN (9-16) mg/dL Creatinine (0.5-1.4) mg/dL Estim Creat Clear Calc Estimated GFR Random Glucose (60-115) mg/dL Calcium (8.4-10.2) mg/dL Total Bilirubin (0.0-1.0) mg/dL Direct Bilirubin (0.0-0.5) mg/dL AST (5-31) U/L ALT (0-31) U/L Alkaline Phosphatase (39-117) U/L Troponin I High Sens (<3.5-17.0) ng/L Total Protein (6.5-8.0) g/dL Albumin (3.5-5.0) g/dL Lipase (8-78) U/L COVID-19 (OLIVIA) Negative (Negative) COVID-19 Clin Com See Note Influenza Type A (OPAL) Negative (Negative) Influenza Type B (OPAL) Negative (Negative) Influenza A & B Note See Note Discharge Plan Discharge Clinical Impression: Acute hepatitis Patient Disposition: Admitted As Inpatient
[2021-11-22] MEDS: 0.9 % Sodium Chloride 1,000 ML 999 ML IV (21:05)
[2021-11-22] MEDS: ondansetron HCL 4 MG/2 ML VIAL IVPUSH (21:05)
[2021-11-22 21:06] VITALS: RESP 16
[2021-11-22] MEDS: Famotidine/PF 20 MG/2 ML VIAL IVPUSH (21:06)
[2021-11-22] MEDS: Morphine Sulfate 4 MG/ML CARTRIDGE IVPUSH (21:06)
[2021-11-22 22:49] VITALS: BP 160/82; PULSE 83; RESP 16; O2SAT 97
--- NOTE | 2021-11-23 00:46 | PM.IMHP ---
History of Present Illness Date of Service: 11/23/21 Chief Complaint: abd pain This is a 46-year-old female with past medical history of alcohol abuse, depression anxiety, opiate use disorder on Suboxone who presents to the hospital with complaints of abdominal pain. Patient reports that her symptoms started on Thursday, initially started with nausea vomiting and abdominal pain across the abdomen, then she developed multiple episodes of vomiting. She denies diarrhea, but still has nausea vomiting. Patient reports her last drink was 36 hours ago, has history of alcohol withdrawals with no call withdrawal seizures, otherwise denies any fever no chills, no chest pain, no shortness of breath, no urinary symptoms but reports smelly urine. and no lower extremity edema. Patient is very anxious, crying, and feels ignored. She does report that she has been taking a lot of Tylenol about 2-3 every 3 hours for the pain in the abdomen. Vitals reviewed showed tachycardia with a heart rate of 111, Labs reviewed showed AST of 1931, ALT of 668, alk-phos of 154, 7 of level less than 1, salicylate level less than [address] shows no acute findings in the abdomen or pelvis, noninflammatory changes Review of Systems Review of Systems: Yes all other systems are reviewed and are negative [facility] Medical History (Updated 11/23/21 @ 06:42 by Frank Vincent MD) Alcohol abuse Anxiety Opioid use disorder Family History (Updated 11/23/21 @ 06:42 by Frank Vincent MD) Other No family history of coronary artery disease Surgical History (Updated 11/23/21 @ 06:42 by Frank Vincent MD) No pertinent past surgical history Social History Alcohol intake: current Alcohol intake frequency: 0-2 drinks per day Alcohol type: hard liquor Patient Tobacco Use Status: Current someday Tobacco user Use of substances other than those prescribed or required for medical reasons: No Substance Use Type: Marijuana Advance Directives: No Advance Directives Information Provided: Yes Patient : No Meds Allergies Allergy/AdvReac Type Severity Reaction Status Date / Time No Known Allergies Allergy Unknown UNKNOWN Unverified 02/09/20 15:35 [NO KNOWN ALLERGIES] Home Medications Medication Instructions Recorded Confirmed Last Taken Type acamprosate 333 mg tablet,delayed 2 tab PO TID 11/23/21 11/23/21 Unknown History release buprenorphine 8 mg-naloxone 2 mg 2 strip sublingual DAILY 11/23/21 11/23/21 Unknown History sublingual film (Suboxone) folic acid 1 mg tablet 1 tab PO DAILY 11/23/21 11/23/21 Unknown History gabapentin 300 mg capsule 1 cap PO TID 11/23/21 11/23/21 Unknown History multivitamin 1 tab PO DAILY 11/23/21 11/23/21 Unknown History paroxetine HCl 40 mg tablet 1 tab PO DAILY 11/23/21 11/23/21 Unknown History thiamine HCl (vitamin B1) 100 mg 1 tab PO DAILY 11/23/21 11/23/21 Unknown History tablet Physical Exam Vital Signs and Narrative: Vital Signs: Last Vital Signs Temp 97.8 F 11/22/21 15:25 Pulse 83 11/22/21 22:49 Resp 16 11/22/21 22:49 BP 160/82 H 11/22/21 22:49 Pulse Ox 97 11/22/21 22:49 O2 Del Method 11/22/21 22:49 BMI result Body Mass Index 27.4 Results Labs CBC and Chem 7: 11/22/21 15:43 11/22/21 15:43 Labs: Laboratory Results - last 24 hr 11/22/21 11/22/21 11/22/21 15:43 15:43 15:43 MCV 93.6 MCH 32.1 MCHC 34.3 RDW 15.7 Plt Count 226 MPV 9.2 L Immature Gran % (Auto) 0.2 Neut % (Auto) 79.2 H Lymph % (Auto) 14.6 L [place] % (Auto) 5.2 Eos % (Auto) 0.4 Baso % (Auto) 0.4 Lymph # (Auto) 0.8 L [place] # (Auto) 0.3 Eos # (Auto) 0.0 Baso # (Auto) 0.0 Abs Immat Gran (auto) 0.01 Absolute Neuts (auto) 4.1 Absolute Nucleated RBC 0.000 Nucleated RBC % (auto) 0.0 Anion Gap 18 Estim Creat Clear Calc 86.8 Estimated GFR > 60 Random Glucose 125 H Calcium 8.6 D Total Bilirubin 0.7 Direct Bilirubin 0.4 AST 1931 H ALT 668 H Alkaline Phosphatase 154 H D Troponin I High Sens < 3.5 Total Protein 7.8 Albumin 4.4 Lipase 68 COVID-19 (OLIVIA) COVID-19 Clin Com Influenza Type A (OPAL) Influenza Type B (OPAL) Influenza A & B Note 11/22/21 11/22/21 15:43 15:43 MCV MCH MCHC RDW Plt Count MPV Immature Gran % (Auto) Neut % (Auto) Lymph % (Auto) [place] % (Auto) Eos % (Auto) Baso % (Auto) Lymph # (Auto) [place] # (Auto) Eos # (Auto) Baso # (Auto) Abs Immat Gran (auto) Absolute Neuts (auto) Absolute Nucleated RBC Nucleated RBC % (auto) Anion Gap Estim Creat Clear Calc Estimated GFR Random Glucose Calcium Total Bilirubin Direct Bilirubin AST ALT Alkaline Phosphatase Troponin I High Sens Total Protein Albumin Lipase COVID-19 (OLIVIA) Negative COVID-19 Clin Com See Note Influenza Type A (OPAL) Negative Influenza Type B (OPAL) Negative Influenza A & B Note See Note Imaging Radiologist's Impressions: Impressions Abdomen Ultrasound 11/22/21 20:37 FINDINGS/IMPRESSION: Targeted sonographic evaluation of the gallbladder. No evidence of cholelithiasis, wall thickening nor pericholecystic free fluid. The common bile duct is mildly prominent measuring up to 0.9 cm in diameter. Further evaluation with MRCP could be obtained if choledocholithiasis is suspected. Abdomen/Pelvis CT 11/22/21 22:45 IMPRESSION: No acute findings in the abdomen or pelvis. No inflammatory changes. Relatively low-attenuation of the liver suggestive of hepatic steatosis. Fleischner guidelines were followed. Assessment and Plan (1) Acute hepatitis: Status: Acute (2) Alcohol abuse with withdrawal: Status: Acute Plan 46-year-old female with past medical history of alcohol abuse, drinks about 1 L of vodka daily presents to the hospital with abdominal pain nausea or vomiting # acute hepatitis - likely secondary to alcohol abuse with AST more elevated than ALT - histamine open, salicylate level negative although does report that she has been taking significant amount of estimate of in daily to control abdominal pain - GI consulted - hepatitis panel sent - follow LFTs # alcohol abuse with withdrawal - will start her on Ativan protocol for alcohol withdrawal - thiamine and folic acid supplement - monitor for withdrawal seizures # anxiety and depression - continue home medications of paroxetine DVT prophylaxis: Heparin subQ Quality Stroke Does the patient have a stroke diagnosis?: No VTE Prior VTE?: No VTE Risk Level:: Medical - moderate - high VTE Device Contraindication: Treatment Not Indicated VTE Drug Contraindication: N/A - Med Ordered
[2021-11-23] MEDS: ondansetron HCL 4 MG/2 ML VIAL IVPUSH (00:48)
[2021-11-23] MEDS: LORazepam 2 MG/ML VIAL 1 MG IVPUSH (00:48)
[2021-11-23] MEDS: Heparin Sodium,Porcine 5,000 UNIT/ML VIAL 5000 UNIT SUBCUT ×2 (01:53→11:36)
[2021-11-23] MEDS: LORazepam 1 MG TABLET 2 MG PO (01:53)
[2021-11-23] MEDS: Lactated Ringers 1,000 ML 100 ML IVCONT ×3 (01:53→20:49)
[2021-11-23 02:04] LABS: Prothrombin Time 11.6 SEC (10.0-13.1)
[2021-11-23 02:07] LABS: Partial Thromboplastin Time 29.8 SEC (24.1-38.0)
[2021-11-23 02:16] LABS: Ammonia 36 umol/L (13-55)
[2021-11-23 02:23] LABS: Acetaminophen LAB < 1 mcg/mL (<30); Salicylate < 5.0 mg/dL (15-30)
[2021-11-23 06:29] VITALS: BP 129/87; PULSE 98; RESP 12; TEMP 36.7; O2SAT 96
[2021-11-23] MEDS: LORazepam 1 MG TABLET PO ×4 (06:47→18:20)
--- NOTE | 2021-11-23 07:10 | PC.NURSE ---
Report received from Eliseo, RNs
--- NOTE | 2021-11-23 07:10 | PC.NURSE ---
RN gave report to Lesley SKELTON and Jojo SKELTON
[2021-11-23 07:12] LABS: MANUAL DIFF FLAG NO
[2021-11-23 07:17] LABS: Basophils Percent Auto 0.3 % (0-2); Eosinophils Absolute Auto 0.1 X10*3/uL (0.0-0.4); Eosinophils Percent Auto 1.5 % (0-4); Hematocrit 42.4 % (37.0-47.0); Hemoglobin 14.6 g/dl (12.0-16.0); Imm Gran Abs Auto 0.01 X10*3/uL (0.00-0.03); Imm Gran Pct Auto 0.3 % (0.0-0.4); Lymphocytes Absolute Auto 1.3 X10*3/uL (1.2-4.9); Lymphocytes Percent Auto 39.3 % (20-40); Mean Corpuscular HGB Conc 34.4 g/dl (31.0-35.0); Mean Corpuscular Hemoglobin 32.5 pg (27.0-33.0); Mean Corpuscular Volume 94.4 fL (80.0-98.0); Monocytes Absolute Auto 0.2 X10*3/uL (0.1-1.2); Monocytes Percent Auto 5.6 % (2-11); Neutrophils Absolute Auto 1.7 x10*3/uL (2.0-8.3); Platelet Count 181 X10*3/uL (160-400); Red Blood Count 4.49 X10*6/uL (4.20-5.50); Red Cell Distribution Width 15.2 % (11.0-16.0); White Blood Count 3.2 X10*3/uL (4.8-10.8)
[2021-11-23 07:47] LABS: Anion Gap 14 (12-20); Blood Urea Nitrogen 4 mg/dL (9-16); Calcium 8.2 mg/dL (8.4-10.2); Carbon Dioxide 21 mmol/L (22-29); Chloride 102 mmol/L (96-108); Creatinine Clr Calc Pharmacy 101.9; Estimated Glomerular Filt Rate > 60; Glucose Random 83 mg/dL (60-115); Potassium 3.9 mmol/L (3.3-5.1); Sodium 133 mmol/L (135-145)
[2021-11-23] MEDS: 0.9 % Sodium Chloride Flush 3 ML SYRINGE IVFLUSH (08:12)
[2021-11-23] MEDS: Thiamine HCL 100 MG TABLET PO ×2 (08:12)
[2021-11-23] MEDS: Folic Acid 1 MG TABLET PO (08:12)
[2021-11-23] MEDS: Gabapentin 300 MG CAPSULE PO ×3 (08:13→20:48)
[2021-11-23] MEDS: Multivitamin TABLET 1 TAB PO (08:13)
[2021-11-23] MEDS: Buprenorphine/Naloxone 8/2 mg FILM 1 FILM SUBLINGUAL (08:13)
[2021-11-23 09:12] LABS: Alanine Aminotransferase 472 U/L (0-31); Alkaline Phosphatase 160 U/L (39-117); Aspartate Amino Transferase 882 U/L (5-31); Bilirubin Direct 0.4 mg/dL (0.0-0.5); Bilirubin Total 1.5 mg/dL (0.0-1.0); Total Protein 7.2 g/dL (6.5-8.0)
[2021-11-23] MEDS: PARoxetine HCL 40 MG TABLET PO (10:18)
[2021-11-23 11:22] VITALS: BP 120/90; PULSE 96; RESP 12; O2SAT 98
[2021-11-23] MEDS: Omeprazole 20 MG CAPSULE.DR PO ×2 (11:33→18:20)
--- NOTE | 2021-11-23 11:44 | PC.NURSE ---
this technical writer and editor assumed care of this pt at 1100. pt alert and oriented, vss, she denies pain. folic acid not given prior to assuming care of this pt. med given by this technical writer and editor when it was received from pharmacy. med documented as unscheduled dose.
--- NOTE | 2021-11-23 13:17 | PM.EVENT ---
Event Note Date of Service: 11/23/21 Event Note: Seen and evaluated this morning feels more comfortable, liver enzymes trending down continue with Ativan protocol for alcohol withdrawal, started for elevated liver enzymes Start omeprazole b.i.d. Advanced diet Pending GI evaluation
[2021-11-23 16:00] VITALS: BP 134/78; PULSE 91; RESP 16; TEMP 36.1; O2SAT 98
--- NOTE | 2021-11-23 16:34 | PM.EVENT ---
Event Note Date of Service: 11/23/21 Event Note: GI Consult-Full note dictated Imp: Acute hepatitis due to EtOH, and ? of Acetaminophen/NSAIDs usage. There is no evidence of gallstones, pancreatitis, nor biliary obstruction on her imaging studies. She has clinically improved with no further vomiting, tolerating po's, and improved labs. She has had no GI bleeding and her liver function appears stable with a normal PT/INR. I don't think she needs any prednisolone for the EtOH-hepatitis. Rec: Supportive care, F/U labs, and observe. I advised her of the need for longterm avoidance of alcohol after discharge. Please advise me if I can be of any further assistance. Thanks.
[2021-11-23 17:09] LABS: Appearance Urine CLEAR; Color Urine DK YELLOW; Glucose Urine UA NEG (NEG); Leukocyte Esterase Urine TRACE (NEG); Nitrite Urine NEG (NEG); Specific Gravity - Urine 1.015 (1.005-1.025); Urine Blood 1+ (NEG); Urine Ketones 5 MG/DL (NEG); Urine Protein NEG (NEG-TRACE)
[2021-11-23 17:25] LABS: Bacteria Urine 2+ /LPF; Mucus Urine 1+ /LPF; Squamous Epithelial Cell Urine 2+ /LPF; WBC Urine 0-2 /HPF (0-4)
[2021-11-23 20:00] VITALS: BP 143/68; PULSE 94; RESP 16; TEMP 36.6; O2SAT 98
--- NOTE | 2021-11-23 20:28 | PC.NURSE ---
patient ask for ice cream for snack .
--- NOTE | 2021-11-23 23:05 | CONS_ITS ---
DATE OF SERVICE: 11/23/2021 REASON FOR CONSULTATION: Elevated LFTs. HISTORY OF PRESENT ILLNESS: The patient is a 46-year-old female with a long-standing history of alcohol abuse, who presents with several days of abdominal pain and vomiting. The patient describes the onset of her upper abdominal pain, which radiated rather diffusely, about 3 days before admission. She did have associated vomiting, but denies any hematemesis nor coffee-grounds emesis. She did not notice any signs of jaundice. She describes that she has constipation, but denies any hematochezia nor melena. She denies any obvious fevers. During the past few days, she describes taking either acetaminophen or NSAIDs fairly regularly for the abdominal pain without any relief. She denies any drug use. Her last use of alcohol was about 2 to 3 days before admission. She does smoke. She was admitted here in 2019 with alcohol-induced pancreatitis. She has had ER visits for alcohol-related issues as well. Since admission here, she does report that her abdominal pain has decreased to some degree. She is eating and able to tolerate a diet without any further vomiting. She has been afebrile. MEDICATIONS: Her medications at home included Suboxone, famotidine, folic acid, gabapentin, Paxil. Medications here in the hospital include Suboxone, Pepcid p.r.n., folic acid, gabapentin, subcu heparin, Ativan p.r.n., multivitamin, omeprazole, Zofran p.r.n., oxycodone p.r.n., Paxil, and thiamine. PAST MEDICAL HISTORY: She describes anxiety. Substance abuse. She reports hypertension. Alcohol abuse. She denies history of MT, diabetes, or stroke. PAST SURGICAL HISTORY: She denies any significant surgeries. SOCIAL HISTORY: She is a biology laboratory assistant. She does smoke. Alcohol as above. She reports that she is a . FAMILY HISTORY: Noncontributory. REVIEW OF SYSTEMS: CONSTITUTIONAL: She has been feeling poorly in general in relation to her alcohol use and her current symptoms. CARDIAC: No chest pain. PULMONARY: No cough. No hemoptysis. GASTROINTESTINAL: As above. URINARY: No dysuria. No hematuria. PHYSICAL EXAMINATION: GENERAL: The patient is alert, cooperative female. She has been afebrile. SKIN: Warm and dry. Nonjaundiced. HEENT: Anicteric sclerae. NECK: Supple. CARDIAC: Tones S1, S2. ABDOMEN: Soft, nondistended. Normal bowel sounds with some mild diffuse tenderness without mass, rebound, or guarding. LABORATORY DATA: White blood cell count 3.2, hemoglobin 14.6, platelets 181,000. PT 11.6 with INR 1.0. Sodium 133, potassium 3.9, BUN 4, creatinine 0.6. Total bilirubin is 1.5 with direct bilirubin 0.4, AST 882, ALT 472, alkaline phosphatase 160. Laboratories from yesterday showed AST of 1931, ALT 668, and alkaline phosphatase of 154. Albumin 4.0, lipase 68. Salicylate level and acetaminophen level were nondetectable. Alcohol level was not done. Viral hepatitis studies are pending. She had an ultrasound of the abdomen involving the right upper quadrant, which was negative for gallstones or cholecystitis. Common bile duct was [address] scan of her abdomen described a normal liver, other than what appeared to be some fatty liver. There is no evidence of any pancreatitis, splenomegaly, ascites, nor biliary disease. IMPRESSION: Given the patient's clinical history, this seems to be an acute hepatitis in relation to alcohol and perhaps either acetaminophen or NSAIDs. In any event, her laboratories seem to be improving already and there is no sign of liver failure given her normal PT with INR, no sign of encephalopathy, no sign of gastrointestinal bleeding, and no significant jaundice. Therefore, at this time, I will continue supportive care and observation. I would recheck her laboratories tomorrow including a PT with INR and liver profile. I do not think she needs prednisolone treatment at this time for the presumed alcohol-induced hepatitis component of her illness. I will continue her diet as tolerated. I did review with her the need to obviously abstain from alcohol long-term once she is discharged in hopes of preventing any further liver disease. At this time, I do not think she needs any further imaging studies nor any other diagnostic tests besides followup laboratories tomorrow. This has been discussed with her in detail. Thanks for the consultation. MD AUDREY Kim/ANN / [phone] [facility]
[2021-11-24] VITALS (7 sets, daily range): BP systolic 125–163; BP diastolic 74–100; PULSE 77–104; RESP 12–18; TEMP 35.9–37.1; O2SAT 95–98
--- NOTE | 2021-11-24 00:35 | PC.NURSE ---
2245 dose of ativan, from previous shift held. Patient RR 12-14. Easily arousable and oriented, sleepy.
[2021-11-24] MEDS: LORazepam 1 MG TABLET PO ×2 (02:47→08:15)
[2021-11-24] MEDS: Heparin Sodium,Porcine 5,000 UNIT/ML VIAL 5000 UNIT SUBCUT ×2 (02:48→14:27)
--- NOTE | 2021-11-24 04:14 | PC.NURSE ---
patient got up throughout the night to use the bathroom .
[2021-11-24] MEDS: Omeprazole 20 MG CAPSULE.DR PO ×2 (06:08→17:23)
[2021-11-24] MEDS: ondansetron HCL 4 MG/2 ML VIAL IVPUSH (06:20)
--- NOTE | 2021-11-24 06:23 | PC.NURSE ---
patient scored 3 on ciwa overnight, zofran for nausea this morning. LR on hold as not in stock right now in ED, vocational rehabilitation supervisor paged.
[2021-11-24 07:14] LABS: INTERNATIONAL NORM RATIO 0.9 (0.9-1.1); Prothrombin Time 9.9 SEC (10.0-13.1)
[2021-11-24 07:37] LABS: Alanine Aminotransferase 244 U/L (0-31); Albumin Level 3.4 g/dL (3.5-5.0); Alkaline Phosphatase 123 U/L (39-117); Anion Gap 11 (12-20); Aspartate Amino Transferase 283 U/L (5-31); Bilirubin Direct 0.2 mg/dL (0.0-0.5); Bilirubin Total 0.5 mg/dL (0.0-1.0); Blood Urea Nitrogen 8 mg/dL (9-16); Calcium 8.3 mg/dL (8.4-10.2); Carbon Dioxide 25 mmol/L (22-29); Chloride 104 mmol/L (96-108); Creatinine Clr Calc Pharmacy 100.3; Estimated Glomerular Filt Rate > 60; Glucose Fasting 97 mg/dL (60-99); Potassium 4.5 mmol/L (3.3-5.1); Sodium 135 mmol/L (135-145); Total Protein 6.3 g/dL (6.5-8.0)
[2021-11-24] MEDS: Folic Acid 1 MG TABLET PO ×2 (08:15→08:19)
[2021-11-24] MEDS: Gabapentin 300 MG CAPSULE PO ×3 (08:15→20:15)
[2021-11-24] MEDS: 0.9 % Sodium Chloride Flush 3 ML SYRINGE IVFLUSH ×2 (08:16→14:28)
[2021-11-24] MEDS: Lactated Ringers 1,000 ML 100 ML IVCONT ×2 (08:17→14:32)
[2021-11-24] MEDS: Multivitamin TABLET 1 TAB PO (08:18)
[2021-11-24] MEDS: PARoxetine HCL 40 MG TABLET PO (08:19)
--- NOTE | 2021-11-24 11:36 | P.PNIM_ITS ---
Subjective Subjective Date of Service: 11/24/21 Interval History: the patient was seen and evaluated this morning Laying in bed, feels anxious< depressed Feeling more withdrawal symptoms with increased tremors No reported other overnight events. Systemic review: No fever, chills or weakness No chest pain, palpitation No shortness of breath or coughing No abdominal pain, nausea or vomiting No urinary symptoms No any rash or wounds feeling anxious< depressed and having more tremors Physical Exam Vital Signs: Vital Signs: Last Vital Signs Temp 98.2 F 11/24/21 04:00 Pulse 90 11/24/21 08:29 Resp 12 11/24/21 08:29 BP 144/100 H 11/24/21 08:29 Pulse Ox 96 11/24/21 08:29 O2 Del Method 11/24/21 08:29 BMI result Body Mass Index 27.4 Const: Other: Constitutional : Alert, interactive< mildly anxious Neck : Normal inspection, Supple Cardiovascular : RRR, no JVP, no lower extremity edema< tachycardia Respiratory : fair bilateral air entry, no crackles, wheezes or rhonchi Gastrointestinal: soft, lax, Normal bowel sounds, Non tender Skin : Warm, Dry Neurological : Alert & oriented x3, No focal deficit , increased tremors Psychological< anxious< in tears Objective Data Active Medications Buprenorphine/Naloxone (Buprenorphine/Naloxone 8/2 Mg Film) 1 film SUBLINGUAL DAILY [facility] Last Admin: 11/23/21 08:13 Dose: 1 film Documented By: JANE Famotidine (Famotidine 20 Mg Tablet) 20 mg PO DAILY PRN PRN Reason: abdominal discomfort Folic Acid (Folic Acid 1 Mg Tablet) 1 mg PO DAILY [facility] Last Admin: 11/24/21 08:19 Dose: 1 mg Documented By: RACHEL Gabapentin (Gabapentin 300 Mg Capsule) 300 mg PO TID [facility] Last Admin: 11/24/21 08:15 Dose: 300 mg Documented By: RACHEL Heparin Sodium (Porcine) (Heparin Sodium,Porcine 5,000 Unit/Ml Vial) 5,000 unit SUBCUT Q12H [facility] Last Admin: 11/24/21 02:48 Dose: 5,000 unit Documented By: JESSI Lactated Ringer's (Lr) 1,000 mls @ 100 mls/hr IVCONT .Q10H [facility] Last Admin: 11/24/21 08:17 Dose: 100 mls/hr Documented By: RACHEL Multivitamins/Vitamin C (Multivitamin Tablet) 1 tab PO DAILY [facility] Last Admin: 11/24/21 08:18 Dose: 1 tab Documented By: RACHEL Omeprazole (Omeprazole 20 Mg Capsule.Dr) 20 mg PO BID@0630,1630 [facility] Last Admin: 11/24/21 06:08 Dose: 20 mg Documented By: JESSI Ondansetron HCl (Ondansetron Hcl 4 Mg/2 Ml Vial) 4 mg IVPUSH Q8H PRN PRN Reason: Nausea and Vomiting Last Admin: 11/24/21 06:20 Dose: 4 mg Documented By: JESSI Oxycodone HCl (Oxycodone Hcl Immed Release 5 Mg Tablet) 5 mg PO Q6H PRN PRN Reason: Pain, Severe (Pain Scale 7-10) Paroxetine HCl (Paroxetine Hcl 40 Mg Tablet) 40 mg PO DAILY [facility] Last Admin: 11/24/21 08:19 Dose: 40 mg Documented By: RACHEL Pharmacy Consult (Consult Rx Etoh Phenob Im/Po) 1 each MISCELLANE ONCE PRN; Protocol PRN Reason: Consult order Phenobarbital (Phenobarbital 15 Mg Tablet) 45 mg PO BID [facility] Stop: 11/26/21 21:01 Phenobarbital (Phenobarbital 15 Mg Tablet) 15 mg PO BID [facility] Stop: 11/28/21 21:01 Phenobarbital (Phenobarbital 15 Mg Tablet) 15 mg PO DAILY [facility] Stop: 11/30/21 09:01 Phenobarbital Sodium (Phenobarbital Sodium 130 Mg/Ml Vial Im Q3hx2) 1 mg IM Q3H [facility] Stop: 11/24/21 17:01 Sodium Chloride (0.9 % Sodium Chloride Flush 3 Ml Syringe) 3 ml IVFLUSH QSHIFT [facility] Last Admin: 11/24/21 08:16 Dose: 3 ml Documented By: RACHEL Thiamine HCl (Thiamine Hcl 100 Mg Tablet) 100 mg PO DAILY [facility] Last Admin: 11/23/21 08:12 Dose: 100 mg Documented By: JANE Labs CBC & Chem 7: 11/23/21 07:09 11/24/21 06:50 Labs: Laboratory Results - last 24 hr 11/23/21 11/24/21 11/24/21 16:50 06:50 06:50 PT 9.9 L INR 0.9 Anion Gap 11 L Estim Creat Clear Calc 100.3 Estimated GFR > 60 Fasting Glucose 97 Calcium 8.3 L Total Bilirubin 0.5 Direct Bilirubin 0.2 AST 283 H ALT 244 H Alkaline Phosphatase 123 H D Total Protein 6.3 L Albumin 3.4 L Urine Color DK YELLOW Urine Appearance CLEAR Urine pH 6.0 Ur Specific [place] 1.015 Urine Protein NEG Urine Glucose (UA) NEG Urine Ketones 5 Urine Blood 1+ H Urine Nitrite NEG Ur Leukocyte Esterase TRACE H Urine RBC 5-9 H Urine WBC 0-2 Ur Squamous Epith Cells 2+ Urine Bacteria 2+ Urine Mucus 1+ Assessment and Plan (1) Alcohol abuse with withdrawal: Status: Acute (2) Transaminitis: Status: Acute Plan 46-year-old female with past medical history of alcohol abuse, drinks about 1 L of vodka daily presents to the hospital with abdominal pain nausea or vomiting # acute hepatitis secondary to alcohol abuse Improving GI input appreciated< no intervention needed likely from alcohol hepatitis panel pending follow LFTs # alcohol abuse with withdrawal discontinue Ativan protocol start phenobarbital protocol continue thiamine and folic acid supplement monitor for withdrawal seizures # anxiety and depression - continue home medications of paroxetine will get care team evaluation DVT prophylaxis: Heparin subQ The patient will need overnight hospital stay to finish treatment for alcohol withdrawal> Quality Stroke Does the patient have a stroke diagnosis?: No VTE Prior VTE?: No VTE Risk Level:: Medical - moderate - high VTE Device Contraindication: Treatment Not Indicated VTE Drug Contraindication: N/A - Med Ordered
[2021-11-24] MEDS: Buprenorphine/Naloxone 8/2 mg FILM 1 FILM SUBLINGUAL (14:27)
[2021-11-24] MEDS: Thiamine HCL 100 MG TABLET PO (14:27)
[2021-11-24] MEDS: PHENobarbitaL sodium 130 MG/ML IM ONCE 200 MG IM (14:27)
[2021-11-24] MEDS: PHENobarbitaL sodium 130 MG/ML VIAL IM Q3Hx2 150 MG IM ×2 (17:23→20:15)
[2021-11-25] MEDS: Heparin Sodium,Porcine 5,000 UNIT/ML VIAL 5000 UNIT SUBCUT (01:40)
[2021-11-25 04:00] VITALS: BP 123/76; PULSE 77; RESP 18; TEMP 35.9; O2SAT 95
[2021-11-25] MEDS: Omeprazole 20 MG CAPSULE.DR PO (05:52)
[2021-11-25 07:46] VITALS: BP 132/84; PULSE 86; RESP 18; TEMP 36.9; O2SAT 95
[2021-11-25] MEDS: PHENobarbitaL 15 MG TABLET 45 MG PO (08:42)
[2021-11-25] MEDS: Thiamine HCL 100 MG TABLET PO (08:42)
[2021-11-25] MEDS: PARoxetine HCL 40 MG TABLET PO (08:42)
[2021-11-25] MEDS: Gabapentin 300 MG CAPSULE PO (08:42)
[2021-11-25] MEDS: Buprenorphine/Naloxone 8/2 mg FILM 1 FILM SUBLINGUAL (08:42)
[2021-11-25] MEDS: Multivitamin TABLET 1 TAB PO (08:42)
[2021-11-25] MEDS: Folic Acid 1 MG TABLET PO (08:42)
[2021-11-25] MEDS: 0.9 % Sodium Chloride Flush 3 ML SYRINGE IVFLUSH (08:42)
--- NOTE | 2021-11-25 10:13 | PM.DS ---
DS: Providers Provider Date of Service: 11/25/21 Date of admission: 11/23/21 00:43 Primary care physician: Ashley Guo Consults: 11/23/21 00:41 Consult to Gastroenterology Routine Consulting Provider: Man Page Reason for consultation: Acute liver failure Has provider been notified: No 11/24/21 09:52 Consult to Care Team Routine Comment: Reason for consultation: alcohol abuse, anxiety, depression DS: Diagnosis Discharge Diagnosis (1) Alcohol abuse with withdrawal: Status: Acute (2) Transaminitis: Status: Acute DS: Summary Hospital Course Hospital Course: Admission note HPI This is a 46-year-old female with past medical history of alcohol abuse, depression anxiety, opiate use disorder on Suboxone who presents to the hospital with complaints of abdominal pain.? Patient reports that her symptoms started on Thursday, initially started with nausea vomiting and abdominal pain across the abdomen, then she developed multiple episodes of vomiting. She denies diarrhea, but still has nausea vomiting.? Patient reports her last drink was 36 hours ago, has history of alcohol withdrawals with no call withdrawal seizures, otherwise denies any fever no chills, no chest pain, no shortness of breath, no urinary symptoms but reports smelly urine.? and no lower extremity edema.? Patient is very anxious, crying, and feels ignored.? She does report that she has been taking a lot of Tylenol about 2-3 every 3 hours for the pain in the abdomen. Vitals reviewed showed tachycardia with a heart rate of 111, Labs reviewed showed AST of 1931, ALT of 668, alk-phos of 154, 7 of level less than 1, salicylate level less than [address] shows no acute findings in the abdomen or pelvis, noninflammatory changes Hospital course The patient was admitted to the hospital for evaluation of abdominal pain, nausea and vomiting which believed to be secondary to alcohol withdrawal and evidence of otitis with elevated liver enzymes. The patient was started on Ativan protocol in the emergency for the evidence of elevated LFT with resumption of her thiamine and folic acid. Evaluated by polygraph operator who recommended no intervention needed as transaminitis likely from alcoholism. Her liver enzymes trended down during the hospital stay. The alcohol withdrawal protocol was changed phenobarbital as she showed more anxiety and restlessness with good response as she tolerated diet and her CIWA protocol scoring was almost 0. She was evaluated by the care team stating that she will quit alcohol completely. We advise you complete abstinence from alcohol Continue your multivitamins, folic acid and thiamine Time Spent with Patient Time attestation: Total time spent providing and/or coordinating discharge services: Discharge coordination time: Greater than 30 minutes Quality: Safe Use of Opioids Does Pt have an Active Cancer Diagnosis on the Problem List?: No Quality: Stroke Does the patient have a stroke diagnosis?: No Physical Exam Vital Signs: Vital Signs: Last Vital Signs Temp 98.5 F 11/25/21 07:46 Pulse 86 11/25/21 07:46 Resp 18 11/25/21 07:46 BP 132/84 11/25/21 07:46 Pulse Ox 95 11/25/21 07:46 O2 Del Method 11/25/21 07:46 BMI result Body Mass Index 27.4 Const: Other: Constitutional : Alert, oriented, not in distress Neck : Normal inspection, Supple Cardiovascular : RRR, no JVP, no lower extremity edema Respiratory : fair bilateral air entry, no crackles, wheezes or rhonchi Gastrointestinal: soft, lax, Normal bowel sounds, Non tender Skin : Warm, Dry Neurological : Alert & oriented x3, No focal deficit , CN 2-12 within normal Discharge Plan Discharge Patient Disposition: Home, Self-Care Discharge Diagnosis: Alcohol abuse and withdrawal elevated liver enzymes Referrals: Ashley Guo [Primary Care Provider] - 1 Week Discharge Medications: Continued famotidine [Pepcid] 20 mg tablet 20 mg PO DAILY PRN (Reason: abdominal discomfort) Qty: 30 0RF ondansetron 4 mg tablet,disintegrating 4 mg PO Q8H PRN (Reason: nausea and vomiting) Qty: 20 0RF chlordiazepoxide HCl 25 mg capsule 25 mg PO Q6-8H PRN (Reason: alcohol withdrawal) Qty: 14 0RF Rx Instructions: partial fill okay multivitamin Tablet 1 tab PO DAILY thiamine HCl (vitamin B1) 100 mg tablet 1 tab PO DAILY gabapentin 300 mg capsule 1 cap PO TID folic acid 1 mg tablet 1 tab PO DAILY paroxetine HCl 40 mg tablet 1 tab PO DAILY acamprosate 333 mg tablet,delayed release (DR/EC) 2 tab PO TID buprenorphine-naloxone [Suboxone] 8-2 mg film 2 strip sublingual DAILY Discharge Orders: Discharge Order (Routine); Ordered 11/25/21 Ordered By: Ml Powell Diet: Advance to usual diet Activity on Discharge: As tolerated Stand Alone Forms: Patient Portal Discharge page Care Plan Goals: Read below Health Concerns: Read below Plan of Treatment: Read below Assessment: You were admitted to the hospital for evaluation of alcohol withdrawal. Noticed to have elevated liver enzymes that trended down during the hospital stay as it was likely a result of alcohol abuse. You were treated with Ativan protocol that was changed later to phenobarbital with good response over the course of hospital stay. Seen by care team the to help with planning to quit alcohol. We advise you complete abstinence from alcohol Continue your multivitamins, folic acid and thiamine
--- NOTE | 2021-11-25 11:37 | MHC.RECOVSUP ---
Recovery Support note: Patient is a 46 year old Finnish speaking female who presented to [facility] ED reporting chest pressure, nausea and fatigue. Patient was medically admitted. This rewriter met with patient prior to discharge to discuss alcohol use and recovery supports. Patient reports she was sober for over a year prior to her relapse. Patient acknowledges the negative health consequences of her drinking and that it will get worse if she continues drinking. Patient reports she plans to maintain sobriety and does not see any barriers to her recovery. Patient reports she is well supported by the [facility] and has a debt recovery officer through there. Discussed [facility] and [facility]. Patient accepted information on these resources. Patient reports she is on Campral and finds it helpful when she remembers to take her medication. Discussed with patient ways to stay on top of the medication schedule. Patient reports no questions or concerns at this time. Patient accepted contact information for this rewriter in the event that she has questions after discharge.
--- NOTE | 2021-11-25 14:37 | MHC.CM.PN ---
PT DISCHARGED HOME EARLIER TODAY PRIOR TO CM SEEING PT.
[2021-11-26 04:17] LABS: HBS Num1 1.49 mIU/mL (0-7.99); HBc Num1 0.14 S/CO (0.00-0.79); HBsAGNum1 0.18 S/CO (0.00-0.99); Hepatitis B Core Antibody Nonreactive (Nonreactive); Hepatitis B Surface Antigen Negative (Negative); ~HepC Num1 15.61 S/CO (0.00-0.79); ~Hepatitis B Surface Antibody NONREACTIVE (Nonreactive); ~Hepatitis C Antibody Reactive (Nonreactive)
[2021-11-27 05:01] LABS: Hepatitis A Antibody IgM 0.15 Index (0-0.79); ~Hepatitis A Antibody IgM Nonreactive (Nonreactive)
== END 2021-11-25 11:37 | disposition home or self-care (01) | DRG 280 ==
LOC: HO.ED 11-23 00:10 → HO.EDOVER 11-23 03:16 → HO.S3 11-24 08:55
PROVIDERS: Emergency Medicine; Internal Medicine; Admitting Provider Internal Medicine; Emergency Provider Internal Medicine; PCP Nurse Practitioner; Visit Provider Student in an Organized Health Care Education/Training Program
DX: K70.10 Alcoholic hepatitis without ascites (principal); F10.10 Alcohol abuse, uncomplicated; F32.A Depression, unspecified; F11.20 Opioid dependence, uncomplicated; F17.210 Nicotine dependence, cigarettes, uncomplicated; F41.9 Anxiety disorder, unspecified; F10.139 Alcohol abuse with withdrawal, unspecified; Z71.6 Tobacco abuse counseling; Z20.822 Contact with and (suspected) exposure to COVID-19; Z79.899 Other long term (current) drug therapy
CPT/HCPCS: 36415; 74176; 76705; 80048; 80053; 80076; 80143; 80179; 81001; 82140; 82248; 83690; 84484; 85025; 85610; 85730; 86704; 86706; 86709; 86803; 87340; 87502; 87635; 93005; 96361; 96372; 96374; 96375; 99285; J2060; J2270; J2405; J2560

== ENCOUNTER 2021-12-20 11:51 | Outpatient (REF) | payer MEDICAID, SELFPAY ==
--- NOTE | ~2021-12-20 | US_ITS ---
EXAMINATION: US VENOUS WITH DOPPLER UPPER EXTREMITY, RIGHT CLINICAL INFORMATION: Edema COMPARISON: None TECHNIQUE: Ultrasound of the right upper extremity is performed using compression sonography and color and pulse Doppler flow with assessment of augmentation of flow. There is also imaging and Doppler assessment of the jugular and subclavian veins. Spectral analysis with color-flow imaging is performed. FINDINGS: Respiratory variation, normal compression, and augmented flow are noted throughout the upper extremity including the axillary, brachial, cubital, and radial and ulnar veins. There is normal flow in the internal jugular and subclavian veins. There is no visible deep or superficial thrombophlebitis. There is focal small fluid collection seen in the antecubital region measuring 1.9 x 0.7 x 0.9 cm. This could be a hematoma. US/US venous duplex UE RT IMPRESSION: No DVT demonstrated in the right upper extremity.
== END 2021-12-20 11:52 | disposition home or self-care (01) ==
LOC: HO.US 11:51
PROVIDERS: Absent Provider Nurse Practitioner; PCP Nurse Practitioner; Visit Provider Internal Medicine Geriatric Medicine
DX: R60.0 Localized edema (principal)
CPT/HCPCS: 93971

== ENCOUNTER 2022-03-03 11:07 | Inpatient (IN) | payer MEDICAID, SELFPAY ==
[2022-03-03] VITALS (7 sets, daily range): BP systolic 122–211; BP diastolic 61–112; PULSE 74–110; RESP 15–20; TEMP 36.7–36.9; O2SAT 90–98; BMI 29.2
--- NOTE | ~2022-03-03 | CT_ITS ---
EXAMINATION: CT ABDOMEN AND PELVIS WITHOUT CONTRAST CLINICAL INFORMATION: History of alcoholic pancreatitis. Abdominal pain. COMPARISON: Previous CT of the abdomen and pelvis most recent November 2021 TECHNIQUE: Multidetector volumetric imaging was performed from the superior aspect of the liver through the pubic symphysis. Sagittal and coronal reformatted images were obtained on the technologist's workstation. This CT examination was performed using dose optimization techniques as appropriate, variously including the following: *Automated exposure control *Adjustment of mA and/or kV according to patient size (this includes techniques or standardized protocols for targeted exams where dose is matched to indication/reason for exam; i.e. extremities or head) *Use of iterative reconstruction technique DLP: 525 mGy-cm FINDINGS: LUNG BASES: The visualized lung bases are unremarkable. LIVER, GALLBLADDER, AND BILIARY TREE: The liver is slightly enlarged, right lobe measuring 20 cm in length. Liver contour and attenuation is normal. No focal liver lesion. Normal gallbladder. No biliary duct dilatation. PANCREAS: The pancreas is normal-appearing. There is mild stranding of the fat surrounding the tail of the pancreas and slight thickening of the left anterior pararenal fascia, and fat stranding surrounding the uncinate process of the head of the pancreas and at the root of the small bowel mesentery questionable for changes of mild pancreatitis. The main pancreatic duct does not appear dilated.. SPLEEN: Unremarkable. ADRENAL GLANDS: Unremarkable. KIDNEYS AND URETERS: The kidneys are normal in size, shape, and attenuation. No hydronephrosis, hydroureter, or calculi seen. No perinephric stranding. BLADDER: Not optimally distended. GASTROINTESTINAL TRACT: The small and large bowel are unremarkable. The appendix is unremarkable. ABDOMINAL WALL: No significant hernia is appreciated. LYMPH NODES: Normal. VASCULAR: Unremarkable. PELVIC VISCERA: Unremarkable. OSSEOUS STRUCTURES: Unremarkable. CT/CT abdomen pelvis wo IV con IMPRESSION: Inflammatory changes around the pancreas questionable for mild pancreatitis. Fleischner guidelines were followed.
[2022-03-03 12:58] LABS: MANUAL DIFF FLAG NO
[2022-03-03 12:59] LABS: Basophils Percent Auto 0.2 % (0-2); Eosinophils Percent Auto 0.2 % (0-4); Hematocrit 44.2 % (37.0-47.0); Hemoglobin 14.8 g/dl (12.0-16.0); Imm Gran Abs Auto 0.02 X10*3/uL (0.00-0.03); Imm Gran Pct Auto 0.2 % (0.0-0.4); Lymphocytes Absolute Auto 1.6 X10*3/uL (1.2-4.9); Lymphocytes Percent Auto 16.7 % (20-40); Mean Corpuscular HGB Conc 33.5 g/dl (31.0-35.0); Mean Corpuscular Hemoglobin 30.8 pg (27.0-33.0); Mean Corpuscular Volume 92.1 fL (80.0-98.0); Mean Platelet Volume 9.3 fL (9.4-12.3); Monocytes Absolute Auto 0.6 X10*3/uL (0.1-1.2); Monocytes Percent Auto 6.5 % (2-11); Neutrophils Absolute Auto 7.2 x10*3/uL (2.0-8.3); Neutrophils Percent Auto 76.2 % (45-73); Platelet Count 307 X10*3/uL (160-400); Red Cell Distribution Width 13.8 % (11.0-16.0); White Blood Count 9.5 X10*3/uL (4.8-10.8)
--- NOTE | 2022-03-03 14:29 | ED_ITS ---
HPI - Nausea/Vomiting/Diarrhea General Chief complaint: Nausea/Vomiting/Diarrhea Stated complaint: vomiting chest pain Time Seen by Provider: 03/03/22 14:18 History of Present Illness HPI Narrative: 46-year-old female with past medical history significant for alcohol abuse, depression, anxiety came in for evaluation of persistent nausea, vomiting, diarrhea. Patient's symptoms started 3 days ago after eating seafood, couple family member ate the same food had a mild diarrhea for 1 day and there were symptoms have resolved, the patient presents with persistent of nausea and vomiting, patient with known history of daily alcohol abuse patient is unable to drink alcohol for the past 2 days because of the vomiting started to feel anxious, tremors and shaky, and mild and occasional auditory hallucination, been having persistent vomiting, initial CIWA score was 24. Patient never had withdrawal symptoms in the past. Related Data Home Medications Medication Instructions Recorded Confirmed acamprosate 333 mg tablet,delayed 2 tab PO TID 11/23/21 11/23/21 release buprenorphine 8 mg-naloxone 2 mg 2 strip sublingual DAILY 11/23/21 11/23/21 sublingual film (Suboxone) folic acid 1 mg tablet 1 tab PO DAILY 11/23/21 11/23/21 gabapentin 300 mg capsule 1 cap PO TID 11/23/21 11/23/21 multivitamin 1 tab PO DAILY 11/23/21 11/23/21 paroxetine HCl 40 mg tablet 1 tab PO DAILY 11/23/21 11/23/21 thiamine HCl (vitamin B1) 100 mg 1 tab PO DAILY 11/23/21 11/23/21 tablet Previous Rx's Medication Instructions Recorded chlordiazepoxide HCl 25 mg capsule 25 mg PO Q6-8H PRN alcohol 10/14/21 withdrawal #14 caps famotidine 20 mg tablet (Pepcid) 20 mg PO DAILY PRN abdominal 10/14/21 discomfort #30 tabs ondansetron 4 mg disintegrating 4 mg PO Q8H PRN nausea and 10/14/21 tablet vomiting #20 tabs Allergies Allergy/AdvReac Type Severity Reaction Status Date / Time No Known Allergies Allergy Unknown UNKNOWN Unverified 02/09/20 15:35 [NO KNOWN ALLERGIES] Review of Systems Review of Systems: All other systems are reviewed and are negative Constitutional: Reports as per HPI and Reports no additional constitutional complaints Eyes: Reports as per HPI and Reports no additional eye complaints Reports system reviewed and no additional complaints, except as documented Cardiovascular: Reports as per HPI and Reports no additional cardiovascular complaints Respiratory: Reports as per HPI and Reports no additional respiratory complaints Gastrointestinal: Reports as per HPI and Reports no additional gastrointestinal complaints Genitourinary: Reports no additional female genitourinary complaints Musculoskeletal: Reports no additional musculoskeletal complaints Skin/Breast: Reports system reviewed and no additional complaints, except as docu Psychiatric: Reports no additional psychiatric complaints Endocrine: Reports no additional endocrine complaints Hematologic/Lymphatic: Reports no additional hematologic/lymphatic complaints Allergic/Immunologic: Reports no additional allergic/immunologic complaints Reports system reviewed and no additional complaints, except as documented and Reports Abnormal speech present [facility] Past Medical History Medical History Acute hepatitis Alcohol abuse Anxiety Opioid use disorder Surgical History No pertinent past surgical history Family History Family History Other No family history of coronary artery disease Social History Social History Household Members: Significant Other Housing: House Do you presently have visiting nurse or other home services: No Alcohol intake: current Alcohol intake frequency: 0-2 drinks per day Alcohol type: hard liquor Patient Tobacco Use Status: Current everyday Tobacco user Tobacco use type: Cigarette and Smokeless Tobacco Cigarette Packs Per Day: 0.5 Cigarettes Per Day: 10.0 e-Cigarette/Vaping Use: Former Use Second Hand Smoke Exposure: Yes Substance Use Type: Marijuana Advance Directives: No Advance Directives Information Provided: Yes Physical Exam Vital Signs: Vital Signs: Last Vital Signs Temp 98.1 F 03/03/22 15:33 Pulse 74 03/03/22 15:33 Resp 18 03/03/22 15:33 BP 160/90 H 03/03/22 15:33 Pulse Ox 97 03/03/22 15:33 O2 Del Method 03/03/22 15:33 BMI result Body Mass Index 29.2 Vital signs have been reviewed as appeared to be correct. Blood pressure elevated. Heart rate elevated. Respiration rate normal. Temperature normal. Oxygen saturation normal. Appearance: Alert. Appear anxious. Head: Normal external exam. Normocephalic. Atraumatic. No Aquino signs noted. No raccoon eyes noted Eyes: PERRLA. EOMI. Conjunctiva and sclera normal. Eyelids normal. ENT: TM's Normal. Pharynx normal. Uvula midline. Moist mucous membranes. No trismus noted. No drooling noted. No muffled voice noted. Neck: Normal inspection. Neck supple. FROM. No adenopathy. Thyroid Normal. No meningeal signs. No neck mass noted. CVS: Normal heart rate and rhythm. Heart sound normal. No murmurs noted. Pulses normal throughout. Respiratory: No respiratory distress. Painless inspiration. Breath sounds normal. No wheezes/rales/rhonchi noted. Chest nontender. No accessory muscle usage noted or decreased air movement noted. Abdomen: Epigastric tenderness, no guarding, no rebound tenderness.. Bowel sounds normal in all 4 quadrants. No distention noted. No organomegaly noted. No visible injury noted. Back: No CVA tenderness. Full range of motion noted. Skin: Skin warm and dry. Normal skin color. Normal skin turgor. No rashes/lesions/lacerations noted. Extremities: No lower extremity edema. Extremities exhibit normal range of motion. Extremities nontender. Neuro: . Cranial nerve exam: II-XII are grossly intact No motor deficit. No sensory deficit. Reflexes normal. CIWA SCORE: N/V CONSTANT NAUSEA, FREQUENT DRY HEAVE SIMIN VOMITING. TREMORS MODERATE WITH ARMS EXTENSION. PAROXYSMAL SWEATS NOT PRESENT, MODERATELY ANXIOUS, MODERATELY RESTLESS, MILD AUDITORY DISTURBANCE, MODERATE HAD HEADACHE AND FULLNESS = 24. Course Course Course Narrative: 46-year-old female history of alcohol abuse came in for gastroenteritis after eating seafood with intractable vomiting patient was not able to drink alcohol now is having alcohol withdrawal will with CIWA score of [address]. [address] to rule out complication from pancreatitis. 2. Start the patient on phenobarb to prevent severe alcohol withdrawal symptoms. 3. Continue with hydration, ppi, antiemetic medication. 4. Blood pressure improving. MDM - Nausea/Vomiting/Diarrhea Medical Records Attestation: I reviewed the patient's medical records. Lab Data Attestation: I reviewed the patient's lab results. Result diagrams: 03/03/22 12:55 03/03/22 14:10 Labs: Lab Results 03/03/22 03/03/22 03/03/22 Range/Units 12:55 14:10 16:01 WBC 9.5 (4.8-10.8) X10*3/uL RBC 4.80 (4.20-5.50) X10*6/uL Hgb 14.8 (12.0-16.0) g/dl Hct 44.2 (37.0-47.0) % MCV 92.1 (80.0-98.0) fL MCH 30.8 (27.0-33.0) pg MCHC 33.5 (31.0-35.0) g/dl RDW 13.8 (11.0-16.0) % Plt Count 307 D (160-400) X10*3/uL MPV 9.3 L (9.4-12.3) fL Immature Gran % (Auto) 0.2 (0.0-0.4) % Neut % (Auto) 76.2 H (45-73) % Lymph % (Auto) 16.7 L (20-40) % [place] % (Auto) 6.5 (2-11) % Eos % (Auto) 0.2 (0-4) % Baso % (Auto) 0.2 (0-2) % Lymph # (Auto) 1.6 (1.2-4.9) X10*3/uL [place] # (Auto) 0.6 (0.1-1.2) X10*3/uL Eos # (Auto) 0.0 (0.0-0.4) X10*3/uL Baso # (Auto) 0.0 (0.0-0.2) X10*3/uL Abs Immat Gran (auto) 0.02 (0.00-0.03) X10*3/uL Absolute Neuts (auto) 7.2 (2.0-8.3) x10*3/uL Absolute Nucleated RBC 0.000 (0.0-0.012) X10*3/uL Nucleated RBC % (auto) 0.0 (0.0-0.2) /100WBC Sodium 138 (135-145) mmol/L Potassium 4.1 (3.3-5.1) mmol/L Chloride 99 (96-108) mmol/L Carbon Dioxide 24 (22-29) mmol/L Anion Gap 19 (12-20) BUN 11 (9-16) mg/dL Creatinine 0.72 (0.5-1.4) mg/dL Estim Creat Clear Calc 92.0 Estimated GFR > 60 Random Glucose 114 (60-115) mg/dL Calcium 9.3 D (8.4-10.2) mg/dL Magnesium 2.0 (1.6-2.6) mg/dL Total Bilirubin 0.8 (0.0-1.0) mg/dL Direct Bilirubin 0.3 (0.0-0.5) mg/dL AST 36 H D (5-31) U/L ALT 23 (0-31) U/L Alkaline Phosphatase 120 H (39-117) U/L Total Protein 8.3 H D (6.5-8.0) g/dL Albumin 4.7 D (3.5-5.0) g/dL Lipase 223 H (8-78) U/L Ethyl Alcohol < 10 mg/dL COVID-19 ([facility]IVIA) Negative (Negative) COVID-19 Clin Com See Note Imaging Data Abdomen pelvis CT: Attestation: I personally reviewed and interpreted this imaging study as follows: Radiologist's impression: Inflammatory changes around the pancreas questionable for mild pancreatitis. ? Discharge Plan Discharge Clinical Impression: Gastroenteritis, Alcohol withdrawal, Intractable vomiting Patient Disposition: Admitted As Inpatient
[2022-03-03 14:47] LABS: Alanine Aminotransferase 23 U/L (0-31); Albumin Level 4.7 g/dL (3.5-5.0); Alkaline Phosphatase 120 U/L (39-117); Anion Gap 19 (12-20); Aspartate Amino Transferase 36 U/L (5-31); Bilirubin Direct 0.3 mg/dL (0.0-0.5); Bilirubin Total 0.8 mg/dL (0.0-1.0); Blood Urea Nitrogen 11 mg/dL (9-16); Calcium 9.3 mg/dL (8.4-10.2); Carbon Dioxide 24 mmol/L (22-29); Chloride 99 mmol/L (96-108); Estimated Glomerular Filt Rate > 60; Ethanol < 10 mg/dL; Glucose Random 114 mg/dL (60-115); Potassium 4.1 mmol/L (3.3-5.1); Sodium 138 mmol/L (135-145); Total Protein 8.3 g/dL (6.5-8.0)
[2022-03-03 15:11] LABS: Lipase 223 U/L (8-78)
[2022-03-03] MEDS: ondansetron HCL 4 MG/2 ML VIAL IVPUSH (16:07)
[2022-03-03] MEDS: PHENobarbitaL sodium 130 MG/ML IM ONCE 200 MG IM (16:07)
[2022-03-03] MEDS: Famotidine/PF 20 MG/2 ML VIAL IVPUSH (16:08)
[2022-03-03 16:35] LABS: COVID-19 Test Negative (Negative); IDNOW Serial# 16C4AD1C
--- NOTE | 2022-03-03 16:39 | PM.IMHP ---
History of Present Illness Date of Service: 03/03/22 Attending physician on admission: Roseann Mancilla Chief Complaint: abd pain , nausea vomiting and diarrhea 46-year-old female history of alcohol abuse drinks used to t 1 pint today, now drinks 5-6 nips a day of vodka -came to the hospital because of abdominal pain nausea vomiting and diarrhea she said her symptoms started 2-3 days ago-and she is having multiple episode of vomiting yellowish color as well as having diarrhea ,denies any blood in both vomitus or diarrhea. Feels very weak due to above. Still has abdominal pain and feel nauseated Last known nausea vomiting and diarrhea episode this morning Denies any family history of similar symptoms or sick contacts or any recent travel or antibiotic use. She says that she had similar symptoms with the use of alcohol in the past. Denies any new complaint of chest pain or shortness of breath or fever or chills Denies any cough Denies any weakness or numbness. Labs reviewed from ED: CBC and BMP seems fine LFTs improving, lipase is in [address] of abdomen is done pending Review of Systems Review of Systems: As above. FORMERLY [facility], [facility] Medical History Acute hepatitis Alcohol abuse Anxiety Opioid use disorder Family History Other No family history of coronary artery disease Pertinent family history: She has family history of alcohol abuse her used to drink alcohol. Surgical History No pertinent past surgical history Social History Household Members: Significant Other Housing: House Do you presently have visiting nurse or other home services: No Alcohol intake: current Alcohol intake frequency: 0-2 drinks per day Alcohol type: hard liquor Patient Tobacco Use Status: Current everyday Tobacco user Tobacco use type: Cigarette and Smokeless Tobacco Cigarette Packs Per Day: 0.5 Cigarettes Per Day: 10.0 e-Cigarette/Vaping Use: Former Use Second Hand Smoke Exposure: Yes Substance Use Type: Marijuana Advance Directives: No Advance Directives Information Provided: Yes Meds Allergies Allergy/AdvReac Type Severity Reaction Status Date / Time No Known Allergies Allergy Unknown UNKNOWN Unverified 02/09/20 15:35 [NO KNOWN ALLERGIES] Active Medications: Current Medications Lactated Ringer's (Lr) 1,000 mls @ 100 mls/hr IVCONT .Q10H [facility] Thiamine HCl 100 mg/ Sodium (Chloride) 101 mls @ 202 mls/hr IV DAILY [facility] Folic Acid 1 mg/ Sodium (Chloride) 50.2 mls @ 100.4 mls/hr IV DAILY [facility] Ondansetron HCl (Ondansetron Hcl 4 Mg/2 Ml Vial) 4 mg IVPUSH Q8H [facility] Pantoprazole Sodium (Pantoprazole Sodium 40 Mg/10 Ml Vial) 40 mg IVPUSH BID [facility] Pharmacy Consult (Consult Rx Etoh Phenob Im/Po) 1 each MISCELLANE ONCE PRN; Protocol PRN Reason: Consult order Phenobarbital (Phenobarbital 15 Mg Tablet) 45 mg PO BID [facility] Stop: 03/05/22 21:01 Phenobarbital (Phenobarbital 15 Mg Tablet) 15 mg PO BID [facility] Stop: 03/07/22 21:01 Phenobarbital (Phenobarbital 15 Mg Tablet) 15 mg PO DAILY [facility] Stop: 03/09/22 09:01 Phenobarbital Sodium (Phenobarbital Sodium 130 Mg/Ml Vial Im Q3hx2) 150 mg IM Q3H [facility] Stop: 03/03/22 21:01 Home Medications Medication Instructions Recorded Confirmed Last Taken Type acamprosate 333 mg tablet,delayed 2 tab PO TID 11/23/21 11/23/21 Unknown History release buprenorphine 8 mg-naloxone 2 mg 2 strip sublingual DAILY 11/23/21 11/23/21 Unknown History sublingual film (Suboxone) folic acid 1 mg tablet 1 tab PO DAILY 11/23/21 11/23/21 Unknown History gabapentin 300 mg capsule 1 cap PO TID 11/23/21 11/23/21 Unknown History multivitamin 1 tab PO DAILY 11/23/21 11/23/21 Unknown History paroxetine HCl 40 mg tablet 1 tab PO DAILY 11/23/21 11/23/21 Unknown History thiamine HCl (vitamin B1) 100 mg 1 tab PO DAILY 11/23/21 11/23/21 Unknown History tablet Physical Exam Vital Signs and Narrative: Vital Signs: Last Vital Signs Temp 98.1 F 03/03/22 15:33 Pulse 74 03/03/22 15:33 Resp 18 03/03/22 15:33 BP 160/90 H 03/03/22 15:33 Pulse Ox 97 03/03/22 15:33 O2 Del Method 03/03/22 15:33 BMI result Body Mass Index 29.2 Appearance: Alert.? Oriented X3.? not in distress.? Eyes: Pupils equal, round and reactive to light.? Sclera nonicteric.? ENT: Pharynx normal.? Moist mucous membranes. cvs: rrr, [id number] . res: clear to auscultation ,no rhonchii or wheezing abd: no rebound or guarding ,diffuse pain, bs present. ext pulses present , no cyanosis . neuro: axo3 , nonfocal. Results Labs CBC and Chem 7: 03/03/22 12:55 03/03/22 14:10 Labs: Laboratory Results - last 24 hr 03/03/22 03/03/22 03/03/22 12:55 14:10 16:01 MCV 92.1 MCH 30.8 MCHC 33.5 RDW 13.8 Plt Count 307 D MPV 9.3 L Immature Gran % (Auto) 0.2 Neut % (Auto) 76.2 H Lymph % (Auto) 16.7 L [place] % (Auto) 6.5 Eos % (Auto) 0.2 Baso % (Auto) 0.2 Lymph # (Auto) 1.6 [place] # (Auto) 0.6 Eos # (Auto) 0.0 Baso # (Auto) 0.0 Abs Immat Gran (auto) 0.02 Absolute Neuts (auto) 7.2 Absolute Nucleated RBC 0.000 Nucleated RBC % (auto) 0.0 Anion Gap 19 Estim Creat Clear Calc 92.0 Estimated GFR > 60 Random Glucose 114 Calcium 9.3 D Magnesium 2.0 Total Bilirubin 0.8 Direct Bilirubin 0.3 AST 36 H D ALT 23 Alkaline Phosphatase 120 H Total Protein 8.3 H D Albumin 4.7 D Lipase 223 H Ethyl Alcohol < 10 COVID-19 ([facility]) Negative COVID-19 Clin Com See Note Assessment and Plan (1) Gastroenteritis: Status: Acute (2) Alcohol withdrawal: Status: Acute (3) Intractable vomiting: Status: Acute (4) Acute pancreatitis: Status: Acute Plan 46-year-old female with past medical history of alcohol abuse, drinks about 1 L of vodka daily presents to the hospital with abdominal pain nausea or vomiting # possible acute panceartitis CT of abdominal pending, lipase slightly up bowel rest,ivf ,pain meds ,iv pain meds follow LFTs improving # alcohol abuse with withdrawal - will start her on Ativan protocol for alcohol withdrawal - thiamine and folic acid supplement - monitor for withdrawal seizures addiction consult # anxiety and depression - continue home medications of paroxetine Possible alcoholic gastritis versus gastroenteritis Continue PPI, antiemetic Will send stool studies DVT prophylaxis:? ambulation inpatient need : Possible acute pancreatitis and alcohol withdrawal-need IV hydration as well as phenobarb protocol and pain management-patient may benefit from 2 midnight stays. Quality Stroke Does the patient have a stroke diagnosis?: No VTE Prior VTE?: No VTE Risk Level:: Medical - low VTE Device Contraindication: N/A - Device Ordered VTE Drug Contraindication: N/A - Med Ordered
[2022-03-03] MEDS: Thiamine HCL 100 MG in 0.9 % Sodium Chloride 100 ML 202 MG IV (17:15)
--- NOTE | 2022-03-03 17:50 | PHA.MEDREC ---
Pharmacy Consult ? Medication Reconciliation Pharmacy has completed the medication reconciliation. sPOKE WITH PATIENT IN THE ED
[2022-03-03] MEDS: Folic Acid 1 MG in 0.9 % Sodium Chloride 50 ML 100.4 MG IV (17:53)
[2022-03-03] MEDS: Lactated Ringers 1,000 ML 100 ML IVCONT (18:47)
--- NOTE | 2022-03-03 20:10 | PC.NURSE ---
Care delayed due to this RN being in another room with a critical pt.
[2022-03-03] MEDS: PHENobarbitaL sodium 130 MG/ML VIAL IM Q3Hx2 150 MG IM (21:24)
[2022-03-03] MEDS: Labetalol HCL 100 MG TABLET PO (21:26)
[2022-03-03] MEDS: Pantoprazole Sodium 40 MG/10 ML VIAL IVPUSH (21:26)
[2022-03-04] VITALS (9 sets, daily range): BP systolic 100–158; BP diastolic 58–88; PULSE 67–93; RESP 14–18; TEMP 36.5–37; O2SAT 95–98
[2022-03-04] MEDS: PHENobarbitaL sodium 130 MG/ML VIAL IM Q3Hx2 150 MG IM (00:56)
[2022-03-04] MEDS: ondansetron HCL 4 MG/2 ML VIAL IVPUSH ×3 (00:57→23:15)
[2022-03-04] MEDS: Morphine Sulfate 2 MG/ML CARTRIDGE IVPUSH ×5 (02:25→23:15)
--- NOTE | 2022-03-04 02:30 | PC.NURSE ---
med with ms 2mg iv for c/o abd pain/tenderness.no n/v.iv fluids infusing.npo.lungs clear.ciwa 2 .
[2022-03-04] MEDS: Lactated Ringers 1,000 ML 100 ML IVCONT ×2 (06:21→21:34)
[2022-03-04 07:12] LABS: Hemoglobin 12.4 g/dl (12.0-16.0); Mean Corpuscular HGB Conc 33.5 g/dl (31.0-35.0); Mean Corpuscular Volume 92.5 fL (80.0-98.0); Mean Platelet Volume 9.8 fL (9.4-12.3); Platelet Count 230 X10*3/uL (160-400); Red Cell Distribution Width 13.8 % (11.0-16.0); White Blood Count 7.9 X10*3/uL (4.8-10.8)
[2022-03-04 07:30] LABS: Anion Gap 14 (12-20); Blood Urea Nitrogen 9 mg/dL (9-16); Calcium 8.3 mg/dL (8.4-10.2); Carbon Dioxide 23 mmol/L (22-29); Chloride 104 mmol/L (96-108); Creatinine Clr Calc Pharmacy 98.9; Estimated Glomerular Filt Rate > 60; Glucose Random 103 mg/dL (60-115); Potassium 3.1 mmol/L (3.3-5.1); Sodium 138 mmol/L (135-145)
[2022-03-04] MEDS: FLUoxetine HCl 20 MG CAPSULE 40 MG PO (09:21)
[2022-03-04] MEDS: Labetalol HCL 100 MG TABLET PO ×2 (09:21→21:31)
[2022-03-04] MEDS: Thiamine HCL 100 MG TABLET PO (09:21)
[2022-03-04] MEDS: Acamprosate Calcium 333 MG TABLET.DR 666 MG PO ×3 (09:21→21:31)
[2022-03-04] MEDS: Pantoprazole Sodium 40 MG/10 ML VIAL IVPUSH ×2 (09:21→21:33)
[2022-03-04] MEDS: PHENobarbitaL 15 MG TABLET 45 MG PO ×2 (09:22→21:31)
[2022-03-04] MEDS: Folic Acid 1 MG TABLET PO (09:22)
[2022-03-04] MEDS: Gabapentin 300 MG CAPSULE PO ×3 (09:22→21:35)
[2022-03-04] MEDS: Multivitamin TABLET 1 TAB PO (09:22)
--- NOTE | 2022-03-04 09:42 | HO.PM.IMPN ---
Subjective Subjective Date of Service: 03/04/22 Interval History: Seen in f/u for alcohol withdrawal, gastritis and pancreatitis interval history: improving, still with some abdominal pain Review of Systems abd pain no fever no seizure Physical Exam Vital Signs: Vital Signs: Last Vital Signs Temp 98.1 F 03/04/22 07:59 Pulse 67 03/04/22 07:59 Resp 18 03/04/22 07:59 BP 154/68 H 03/04/22 07:59 Pulse Ox 95 03/04/22 07:59 O2 Del Method 03/04/22 07:59 BMI result Body Mass Index 29.2 Const: Other: General: AO X 3, no acute distress Resp: CTA bilateral CVS: S1,S2,RRR GI: +BS, Non specific tenderness Skin: No rash Neuro: motor grossly intact Psych: appropriate affect Objective Data Active Medications Acamprosate (Acamprosate Calcium 333 Mg Tablet.) 666 mg PO TID ON LICENSE OF [facility] Last Admin: 03/04/22 09:21 Dose: 666 mg Documented By: JANE Buprenorphine/Naloxone (Buprenorphine/Naloxone 8/2 Mg Film) 2 film SUBLINGUAL DAILY ON LICENSE OF [facility] Buspirone HCl (Buspirone Hcl 5 Mg Tablet) 7.5 mg PO TID ON LICENSE OF [facility] Fluoxetine HCl (Fluoxetine Hcl 20 Mg Capsule) 40 mg PO DAILY ON LICENSE OF [facility] Last Admin: 03/04/22 09:21 Dose: 40 mg Documented By: JANE Fluticasone Propionate (Fluticasone Propionate Nasal 16 Gm [place]) 2 spray NOSTRIL-B DAILY ON LICENSE OF [facility] Folic Acid (Folic Acid 1 Mg Tablet) 1 mg PO DAILY ON LICENSE OF [facility] Last Admin: 03/04/22 09:22 Dose: 1 mg Documented By: JANE Gabapentin (Gabapentin 300 Mg Capsule) 300 mg PO TID ON LICENSE OF [facility] Last Admin: 03/04/22 09:22 Dose: 300 mg Documented By: JANE Lactated Ringer's (Lr) 1,000 mls @ 100 mls/hr IVCONT .Q10H ON LICENSE OF [facility] Last Admin: 03/04/22 06:21 Dose: 100 mls/hr Documented By: RHIANNON Labetalol HCl (Labetalol Hcl 100 Mg Tablet) 100 mg PO BID ON LICENSE OF [facility]; Protocol Last Admin: 03/04/22 09:21 Dose: 100 mg Documented By: JANE Loratadine (Loratadine 10 Mg Tablet) 10 mg PO DAILY PRN PRN Reason: allergies Morphine Sulfate (Morphine Sulfate 2 Mg/Ml Cartridge) 2 mg IVPUSH Q4H PRN; Protocol PRN Reason: Pain, Moderate (Pain Scale 4-6 Last Admin: 03/04/22 09:23 Dose: 2 mg Documented By: JANE Multivitamins/Vitamin C (Multivitamin Tablet) 1 tab PO DAILY ON LICENSE OF [facility] Last Admin: 03/04/22 09:22 Dose: 1 tab Documented By: JANE Ondansetron HCl (Ondansetron Hcl 4 Mg/2 Ml Vial) 4 mg IVPUSH Q8H ON LICENSE OF [facility] Last Admin: 03/04/22 06:33 Dose: 4 mg Documented By: RHIANNON Pantoprazole Sodium (Pantoprazole Sodium 40 Mg/10 Ml Vial) 40 mg IVPUSH BID ON LICENSE OF [facility] Last Admin: 03/04/22 09:21 Dose: 40 mg Documented By: JANE Pharmacy Consult (Consult Rx Etoh Phenob Im/Po) 1 each MISCELLANE ONCE PRN; Protocol PRN Reason: Consult order Phenobarbital (Phenobarbital 15 Mg Tablet) 45 mg PO BID ON LICENSE OF [facility] Stop: 03/05/22 21:01 Last Admin: 03/04/22 09:22 Dose: 45 mg Documented By: JANE Phenobarbital (Phenobarbital 15 Mg Tablet) 15 mg PO BID ON LICENSE OF [facility] Stop: 03/07/22 21:01 Phenobarbital (Phenobarbital 15 Mg Tablet) 15 mg PO DAILY ON [facility] Stop: 03/09/22 09:01 Thiamine HCl (Thiamine Hcl 100 Mg Tablet) 100 mg PO DAILY ON LICENSE OF [facility] Last Admin: 03/04/22 09:21 Dose: 100 mg Documented By: JANE Labs CBC & Chem 7: 03/04/22 06:28 03/04/22 06:28 Labs: Laboratory Results - last 24 hr 03/03/22 03/03/22 03/03/22 12:55 14:10 16:01 MCV 92.1 MCH 30.8 MCHC 33.5 RDW 13.8 Plt Count 307 D MPV 9.3 L Immature Gran % (Auto) 0.2 Neut % (Auto) 76.2 H Lymph % (Auto) 16.7 L [place] % (Auto) 6.5 Eos % (Auto) 0.2 Baso % (Auto) 0.2 Lymph # (Auto) 1.6 [place] # (Auto) 0.6 Eos # (Auto) 0.0 Baso # (Auto) 0.0 Abs Immat Gran (auto) 0.02 Absolute Neuts (auto) 7.2 Absolute Nucleated RBC 0.000 Nucleated RBC % (auto) 0.0 Anion Gap 19 Estim Creat Clear Calc 92.0 Estimated GFR > 60 Random Glucose 114 Calcium 9.3 D Magnesium 2.0 Total Bilirubin 0.8 Direct Bilirubin 0.3 AST 36 H D ALT 23 Alkaline Phosphatase 120 H Total Protein 8.3 H D Albumin 4.7 D Lipase 223 H Ethyl Alcohol < 10 COVID-19 ([facility]) Negative COVID-19 [facility] Com See Note 03/04/22 03/04/22 06:28 06:28 MCV 92.5 MCH 31.0 MCHC 33.5 RDW 13.8 Plt Count 230 D MPV 9.8 Immature Gran % (Auto) Neut % (Auto) Lymph % (Auto) [place] % (Auto) Eos % (Auto) Baso % (Auto) Lymph # (Auto) [place] # (Auto) Eos # (Auto) Baso # (Auto) Abs Immat Gran (auto) Absolute Neuts (auto) Absolute Nucleated RBC 0.000 Nucleated RBC % (auto) 0.0 Anion Gap 14 Estim Creat Clear Calc 98.9 Estimated GFR > 60 Random Glucose 103 Calcium 8.3 L D Magnesium Total Bilirubin Direct Bilirubin AST ALT Alkaline Phosphatase Total Protein Albumin Lipase Ethyl Alcohol COVID-19 ([facility]) COVID-19 Clin Com Assessment and Plan (1) Alcohol abuse with withdrawal: Status: Resolved (2) Transaminitis: Status: Resolved Plan 46-year-old female with past medical history of alcohol abuse, drinks about 1 L of vodka daily presents to the hospital with abdominal pain nausea or vomiting # Acute alcoholic hepatitis -LFTs trending down -seen by GI, no further testing/intervention -abstinence from alcohol discussed #mild alcoholic pancreaitis--clinically better, advance diet # Alcohol abuse with withdrawal -Phenobarbital protocol -Thiamine, Folate # Anxiety and depression - continue paroxetine -CARE team consult before DC #Hypokalemia--replaced with PO DVT prophylaxis: Heparin subQ The patient will need overnight hospital stay to finish treatment for alcohol withdrawal> Quality Stroke Does the patient have a stroke diagnosis?: No VTE Prior VTE?: No VTE Risk Level:: Medical - low VTE Device Contraindication: N/A - Device Ordered VTE Drug Contraindication: N/A - Med Ordered
--- NOTE | 2022-03-04 09:47 | PC.NURSE ---
0920-pt assessed, anxious and angry regarding C/O abdominal pain, upper middle and sharp, rating 10/10. warm blanket applied and IV MS 2mg given. bowel sounds present. Abdomen tender with and without palpation. pulses present +3 X4. lung sounds clear on RA.
[2022-03-04] MEDS: Potassium Chloride ER 20 MEQ TAB.ER.PRT 40 MEQ PO (09:51)
[2022-03-04] MEDS: busPIRone HCl 5 MG TABLET 7.5 MG PO ×3 (10:02→21:32)
[2022-03-04] MEDS: Buprenorphine/Naloxone 8/2 mg FILM 2 FILM SUBLINGUAL (10:08)
--- NOTE | 2022-03-04 11:10 | MHC.CM.PN ---
met with pt who lives w/ family is covid vax x 2 is working dc plan home no servcies pts pcp is dr longo
--- NOTE | 2022-03-04 12:06 | MHC.RECOVRN ---
T/W met w/ pt, pt alert, oriented, laying in bed. Pt states 2 years ago committed suicide and since the traumatic event, started drinking ETOH. Pt reports prior to this did not drink ETOH. Pt states for past 3 weeks has been drinking at least one sleeve of nips daily. Pt reports for past two weeks did not take complete dose of Campral, prescribed by Dr. Romero at [facility]. Pt reports taking a few doses, not daily of vitamin B and Folate. Pt reports takes Suboxone 8mg BID daily and attends the MAT clinic at [facility] regularly. Pt reports is followed closely at [facility] by PCP and MAT provider and sees therapist. Pt reports family supportive of Recovery. Pt reports daughter is an RN whom has reviewed medication adherence w/ pt in the past. Pt reports no history of ETOH induced seizures. Pt reports withdrawals presented worse this time then in the past, which prompted pt to come to hospital. Pt reports hearing and seeing things at home, pt reports felt animal crawling on bed. Pt reports epigastric pain at this time, after receiving Suboxone medication and Morphine. Pt reports history of detox treatment for ETOH use one time and in the past had academic coach. T/W and pt discussed importance of adhering to vitamins. T/W and pt discussed recovery resources. Pt reports plans to attend AA meetings, f/u w/ PCP, Dr. Romero and therapist upon discharge. Pt not interested at this time in further recovery resources.
[2022-03-04] MEDS: Fluticasone Propionate Nasal 16 GM SPRAY 2 SPRAY NOSTRIL-B (14:16)
--- NOTE | 2022-03-04 16:55 | PM.EVENT ---
Event Note Date of Service: 03/04/22 Event Note: Addiction consult Please see Recovery Support RN Note
[2022-03-05 01:15] VITALS: BMI 29.2
[2022-03-05 02:57] VITALS: BP 113/61; PULSE 84; RESP 14; TEMP 36.3; O2SAT 94
[2022-03-05] MEDS: Morphine Sulfate 2 MG/ML CARTRIDGE IVPUSH ×2 (03:23→08:45)
[2022-03-05] MEDS: Lactated Ringers 1,000 ML 100 ML IVCONT (06:10)
[2022-03-05 07:56] VITALS: BP 124/75; PULSE 94; RESP 20; TEMP 36.9; O2SAT 95
[2022-03-05] MEDS: Acamprosate Calcium 333 MG TABLET.DR 666 MG PO (08:31)
[2022-03-05] MEDS: Buprenorphine/Naloxone 8/2 mg FILM 2 FILM SUBLINGUAL (08:32)
[2022-03-05] MEDS: busPIRone HCl 5 MG TABLET 7.5 MG PO (08:32)
[2022-03-05] MEDS: PHENobarbitaL 15 MG TABLET 45 MG PO (08:32)
[2022-03-05] MEDS: Multivitamin TABLET 1 TAB PO (08:33)
[2022-03-05] MEDS: Labetalol HCL 100 MG TABLET PO (08:33)
[2022-03-05] MEDS: Gabapentin 300 MG CAPSULE PO (08:33)
[2022-03-05] MEDS: Thiamine HCL 100 MG TABLET PO (08:33)
[2022-03-05] MEDS: ondansetron HCL 4 MG/2 ML VIAL IVPUSH (08:33)
[2022-03-05] MEDS: FLUoxetine HCl 20 MG CAPSULE 40 MG PO (08:33)
[2022-03-05] MEDS: Folic Acid 1 MG TABLET PO (08:33)
[2022-03-05] MEDS: Fluticasone Propionate Nasal 16 GM SPRAY 2 SPRAY NOSTRIL-B (08:35)
[2022-03-05 08:45] VITALS: RESP 14
[2022-03-05 08:48] LABS: Anion Gap 15 (12-20); Blood Urea Nitrogen 7 mg/dL (9-16); Calcium 8.6 mg/dL (8.4-10.2); Carbon Dioxide 27 mmol/L (22-29); Chloride 101 mmol/L (96-108); Creatinine Clr Calc Pharmacy 97.3; Estimated Glomerular Filt Rate > 60; Glucose Random 82 mg/dL (60-115); Potassium 3.7 mmol/L (3.3-5.1); Sodium 139 mmol/L (135-145)
[2022-03-05] MEDS: Pantoprazole Sodium 40 MG/10 ML VIAL IVPUSH (09:44)
--- NOTE | 2022-03-05 09:58 | P.DS_ITS ---
DS: Providers Provider Date of Service: 03/05/22 Date of admission: 03/03/22 16:30 Primary care physician: [facility] Consults: 03/03/22 16:58 Addiction Medicine Routine Consulting Provider: Karlene Manuel Reason for consultation: alcohol abuse Has provider been notified: No DS: Diagnosis Discharge Diagnosis (1) Alcohol abuse with withdrawal: Status: Resolved (2) Transaminitis: Status: Resolved DS: Summary Hospital Course Hospital Course: Admission HPI Attending physician on admission: Roseann Mancilla Chief Complaint: abd pain , nausea vomiting and diarrhea 46-year-old female history of alcohol abuse drinks used to t 1 pint today, now drinks 5-6 nips a day of vodka -came to the hospital because of abdominal pain nausea vomiting and diarrhea she said her symptoms started 2-3 days ago-and she is having multiple episode of vomiting yellowish color as well as having diarrhea ,denies any blood in both vomitus or diarrhea.? Feels very weak due to above. Still has abdominal pain and feel nauseated Last known nausea vomiting and diarrhea episode this morning Denies any family history of similar symptoms or sick contacts or any recent tr devante or antibiotic use. She says that she had similar symptoms with the use of alcohol in the past. Denies any new complaint of chest pain or shortness of breath? or fever or chills Denies any cough Denies any weakness or numbness. Labs reviewed from ED: CBC and BMP seems fine LFTs improving, lipase is in [address] of abdomen is done pending Hospital course: # Acute alcoholic hepatitis with elevated that have since trended down. GI saw with no furtheer testing on treatment waranted #Mild alcoholic pancreaitis--treated with IV and diet advanced slowly and now w ith no pain and lipase has come down # Alcohol abuse with withdrawal--mild, treated with Phenobarbital protocol. Thiamine, Folate supplement #Alocholic gastritis with nausea and vomitting now resolved, treated with PPI and will discharge with Prilosec # Anxiety and depression - continue paroxetine #Hypokalemia--replaced with PO and corrected She was also evaluated by the recovery team with the overall message to stop drinking and seek help with resources given to her to aid her in this endeavour Time Spent with Patient Time attestation: Total time spent providing and/or coordinating discharge services: Discharge coordination time: Greater than 30 minutes Quality: Safe Use of Opioids Does Pt have an Active Cancer Diagnosis on the Problem List?: No Quality: Stroke Does the patient have a stroke diagnosis?: No Physical Exam Vital Signs: Vital Signs: Last Vital Signs Temp 98.4 F 03/05/22 07:56 Pulse 94 03/05/22 07:56 Resp 14 03/05/22 08:45 BP 124/75 03/05/22 07:56 Pulse Ox 95 03/05/22 07:56 O2 Del Method 03/05/22 07:56 BMI result Body Mass Index 29.2 Const: Other: General: AO X 3, no acute distress Resp: CTA bilateral CVS: S1,S2,RRR GI: +BS, NT, no distention Skin: No rash Neuro: motor grossly intact Psych: appropriate affect DS: Data Data Completed and Pending Completed studies during hospitalization [Text1]: Procedures Detoxification Services for Substance Abuse Treatment (11/23/21) Labs on day of discharge: Laboratory Results - last 24 hr 03/05/22 08:11 Sodium 139 Potassium 3.7 Chloride 101 Carbon Dioxide 27 Anion Gap 15 BUN 7 L Creatinine 0.68 Estim Creat Clear Calc 97.3 Estimated GFR > 60 Random Glucose 82 Calcium 8.6 Discharge Plan Discharge Anticipated Discharge Date/Time: 03/05/22 09:49 Patient Disposition: Home, Self-Care Discharge Diagnosis: Acute pancreatitis, alcoholic gastritis Referrals: [facility] [Primary Care Provider] - 1 Week Discharge Medications: New omeprazole 20 mg capsule,delayed release(DR/EC) 20 mg PO DAILY Qty: 30 1RF Continued ondansetron 4 mg tablet,disintegrating 4 mg PO Q8H PRN (Reason: nausea and vomiting) Qty: 20 0RF multivitamin Tablet 1 tab PO DAILY thiamine HCl (vitamin B1) 100 mg tablet 1 tab PO DAILY gabapentin 300 mg capsule 1 cap PO TID folic acid 1 mg tablet 1 tab PO DAILY acamprosate 333 mg tablet,delayed release (DR/EC) 2 tab PO TID buprenorphine-naloxone [Suboxone] 8-2 mg film 2 strip sublingual DAILY fluoxetine 40 mg capsule 1 cap PO DAILY cetirizine 10 mg tablet 1 tab PO DAILY PRN (Reason: allergies) buspirone 7.5 mg tablet 1 tab PO TID fluticasone propionate 50 mcg/actuation spray,suspension 2 spray intranasal DAILY Discharge Orders: Discharge Order (Routine); Ordered 03/05/22 Ordered By: Antonio Ness Diet: Advance to usual diet Activity on Discharge: As tolerated Stand Alone Forms: Patient Portal Discharge page Care Plan Goals: Alcohol abstience Health Concerns: Alcohol use desorder Plan of Treatment: You suffered acute alcoholic pancreatitis, alcoholic gastrititis which resulted in your symptoms that have now much.Avoid alcohol at all cost, attend resources given to you. Take Prilosec for gastritis Assessment: as above
--- NOTE | 2022-03-05 10:23 | MHC.CM.PN ---
pt dcd home no skilled servceis ordered by
== END 2022-03-05 12:37 | disposition home or self-care (01) | DRG 241 ==
LOC: HO.ED 16:01 → HO.EDOVER 16:43 → HO.IMC 03-04 18:08
PROVIDERS: Admitting Provider Internal Medicine; Emergency Provider Emergency Medicine; Visit Provider Internal Medicine
DX: K29.20 Alcoholic gastritis without bleeding (principal); K85.20 Alcohol induced acute pancreatitis without necrosis or infection; K70.10 Alcoholic hepatitis without ascites; F17.210 Nicotine dependence, cigarettes, uncomplicated; F10.139 Alcohol abuse with withdrawal, unspecified; F11.20 Opioid dependence, uncomplicated; E87.6 Hypokalemia; F32.A Depression, unspecified; F41.9 Anxiety disorder, unspecified; Z20.822 Contact with and (suspected) exposure to COVID-19; Z71.6 Tobacco abuse counseling; Z79.51 Long term (current) use of inhaled steroids; Z79.899 Other long term (current) drug therapy
CPT/HCPCS: 36415; 74176; 80048; 80076; 82077; 83690; 83735; 85025; 85027; 87635; 96372; 96374; 96375; 99284; 99285; J2270; J2405; J2560; J3411

== ENCOUNTER 2022-04-30 13:55 | Outpatient (REF) | payer MEDICAID, SELFPAY ==
--- NOTE | ~2022-04-30 | MM_ITS ---
EXAMINATION: MM DIAGNOSTIC DIGITAL BREAST TOMOSYNTHESIS, BILATERAL US DIAGNOSTIC ULTRASOUND BREAST, RIGHT CLINICAL INFORMATION: Due for yearly. Also one year follow-up probable benign nodule periareolar right breast, suspected fibroadenoma. TC score 14%. COMPARISON: Mammography: 04/24/2021 (diagnostic baseline); right breast ultrasound 04/24/2021, 10/23/2021. TECHNIQUE: Digital breast tomosynthesis is performed in both the craniocaudal and mediolateral oblique views along with computer-aided detection (CAD). Synthesized 2D images are generated from the tomosynthesis. Ultrasound right breast is targeted to the periareolar region. Grayscale imaging and color Doppler are performed without and with harmonics. FINDINGS: There are scattered areas of fibroglandular density (ACR BI-RADS breast composition Category b). Parenchymal pattern is similar to the baseline exam. There is no interval mass or architectural abnormality. Again, there are benign grouped coarse calcifications posterior upper outer right breast and a tight group of benign coarse calcifications central mid right breast. Incidental low left axillary tail node present posterior upper outer left breast. The axilla and skin contours are unremarkable. Ultrasound right breast demonstrates a stable circumscribed oval hypoechoic mass 10:00 3 cm from nipple measuring just under 1 cm. Sonographic contours are stable from prior ultrasound studies. Finding most likely fibroadenoma. Lesion will be reassessed again in 12 months at time of next bilateral mammography to complete long-term surveillance. Results are provided to the patient at time of visit by the technologist. MM/MM tomosynthesis diagnostic BI IMPRESSION: 1. Mammography shows no significant changes from prior diagnostic exam. 2. Stable probable small fibroadenoma periareolar right breast. ASSESSMENT: BI-RADS 3: Probably Benign RECOMMENDATION: Diagnostic mammography at time of next annual exam, due in 12 months with targeted right breast ultrasound at same appointment. This patient's information was entered into a reminder system with a target due date for their next mammogram.
== END 2022-04-30 13:56 | disposition home or self-care (01) ==
LOC: HO.MAMMO 13:55
PROVIDERS: Visit Provider Registered Nurse
DX: N63.10 Unspecified lump in the right breast, unspecified quadrant (principal)
CPT/HCPCS: 76642; 77062; 77066

== ENCOUNTER 2022-10-25 14:05 | Emergency (ER) | payer MEDICAID, SELFPAY ==
--- NOTE | 2022-10-25 14:07 | ED_ITS ---
HPI - General Adult General Chief complaint: Dental/Oral Stated complaint: tooth infection Time Seen by Provider: 10/25/22 14:11 Source: patient Mode of arrival: ambulatory Limitations: no limitations History of Present Illness HPI narrative: Patient is a 47 year old assigned female at with no reported medical history presenting to the emergency department today with right lower dental pain. Patient states that she has been having dental pain for the last 3 days but her dentist has not been able to get her in. Patient denies any dizziness, lightheadedness, abdominal pain, nausea, vomiting, fever, chills, blurry vision, double vision, loss of vision, chest pain, difficulty breathing, shortness of breath, back pain, night sweats, pain with urination, increased urinary frequency, increased urinary urgency, blood in her urine or stool, syncope or a near syncopal episode, recent trauma or falls, bowel incontinence, bladder incontinence, bowel retention, bladder retention, or any other complaints at thi s time. Onset (ago): day(s) (3) Location: mouth Radiation: non-radiation Severity: mild Severity scale (1-10): 3 Quality: dull Pain Consistency: constant Relieving factors: none Exacerbating factors: none Associated symptoms: denies other symptoms Treatments prior to arrival: none Related Data Home Medications Medication Instructions Recorded Confirmed acamprosate 333 mg tablet,delayed 2 tab PO TID 11/23/21 03/03/22 release buprenorphine 8 mg-naloxone 2 mg 2 strip sublingual DAILY 11/23/21 03/03/22 sublingual film (Suboxone) folic acid 1 mg tablet 1 tab PO DAILY 11/23/21 03/03/22 gabapentin 300 mg capsule 1 cap PO TID 11/23/21 03/03/22 multivitamin 1 tab PO DAILY 11/23/21 03/03/22 thiamine HCl (vitamin B1) 100 mg 1 tab PO DAILY 11/23/21 03/03/22 tablet buspirone 7.5 mg tablet 1 tab PO TID 03/03/22 03/03/22 cetirizine 10 mg tablet 1 tab PO DAILY PRN allergies 03/03/22 03/03/22 fluoxetine 40 mg capsule 1 cap PO DAILY 03/03/22 03/03/22 fluticasone propionate 50 2 spray intranasal DAILY 03/03/22 03/03/22 mcg/actuation nasal spray,suspension Previous Rx's Medication Instructions Recorded ondansetron 4 mg disintegrating 4 mg PO Q8H PRN nausea and 10/14/21 tablet vomiting #20 tabs omeprazole 20 mg capsule,delayed 20 mg PO DAILY #30 caps 03/05/22 release chlorhexidine gluconate 0.12 % 15 ml buccal BID #118 mL 10/25/22 mouthwash (Peridex) penicillin V potassium 500 mg 500 mg PO BID 10 days #20 tabs 10/25/22 tablet Allergies Allergy/AdvReac Type Severity Reaction Status Date / Time No Known Allergies Allergy Unknown UNKNOWN Verified 10/25/22 14:08 [NO KNOWN ALLERGIES] Review of Systems Constitutional: Constitutional: Reports no additional constitutional complaints, Denies chills, Denies fever(s) and Denies night sweats Eyes: Eyes: Reports no additional eye complaints, Denies blurry vision, Denies change in vision, Denies diplopia, Denies eye discharge, Denies loss of vision and Denies eye pain ENT: Denies dizziness and Reports mouth pain Cardiovascular: Cardiovascular: Reports no additional cardiovascular complaints, Denies chest pain, Denies lightheadedness, Denies Loss of Consciousness and Denies dyspnea Respiratory: Respiratory: Reports no additional respiratory complaints and Denies dyspnea Gastrointestinal: Gastrointestinal: Reports no additional gastrointestinal complaints, Denies abdominal pain, Denies melena, Denies hematochezia, Denies change in bowel habits and Denies change in stool character Genitourinary: Genitourinary: Denies hematuria, Denies urinary frequency, Denies dysuria, Denies urinary incontinence, Denies urinary hesitancy and Denies urinary urgency Musculoskeletal: Musculoskeletal: Reports no additional musculoskeletal comp laints, Denies numbness and Denies tingling Neurologic: Denies dizziness, Denies loss of vision, Denies numbness and Denies tingling Psychiatric: Psychiatric: Reports no additional psychiatric complaints Endocrine: Endocrine: Reports no additional endocrine complaints Hematologic/Lymphatic: Hematologic/Lymphatic: Reports no additional hematologic/lymphatic complaints Allergic/Immunologic: Allergic/Immunologic: Reports no additional allergic/immunologic complaints PMFSH Past Medical History Attestation statement: The following information was validated with the patient. Source: old records reviewed and nursing notes reviewed Medical History Acute hepatitis Alcohol abuse Anxiety Opioid use disorder Surgical History No pertinent past surgical history Family History Family History Other No family history of coronary artery disease Social History Social History Household Members: Significant Other Household Members Other:: boyfriends family Housing: House Do you presently have visiting nurse or other home services: No Alcohol intake: current Alcohol intake frequency: does not drink Alcohol type: hard liquor Patient Tobacco Use Status: Current everyday Tobacco user Tobacco use type: Cigarette Cigarette Packs Per Day: 0.5 Cigarettes Per Day: 10.0 Years Smoked: 25 e-Cigarette/Vaping Use: Never Used Second Hand Smoke Exposure: Yes Substance Use Type: Marijuana service: No Physical Exam ED Vital Signs: Vital Signs - 24 hr 10/25/22 14:08 Temperature 96.7 F L Pulse Rate 90 Respiratory Rate 18 Blood Pressure 125/69 Pulse Oximetry 96 Oxygen Delivery Method Room Air BMI result Body Mass Index 31.1 Const General: cooperative, no acute distress, alert and awake Nutritional Appearance: well nourished Orientation/consciousness: patient oriented x3 Limitations: no limitations HENMT Head: Yes normal to inspection and Yes atraumatic Ears: hearing grossly normal bilaterally and external ears normal General nose exam: Normal external nose present, no nasal discharge noted and no epistaxis Face and sinus: Yes normal facial exam, No abrasion and No laceration Mouth: Normal oral and palatal mucosa present, no drooling and no muffled voice Teeth and gingiva: poor dentition Teeth image: 1. Teeth are extracted, mild swelling and erythema Eyes General: appearance normal, both eyes and all related structures Periorbital: periorbital findings normal Eyelids: Yes eyelids normal Conjunctivae: conjunctivae normal Pupils: Equal, round and reactive pupils present EOM: EOMs intact bilaterally Neck Neck: Yes normal visual inspection, Yes full ROM and Yes no lymphadenopathy Chest Chest palpation & inspection: normal inspection of the chest Resp Effort & Inspection: normal respiratory effort and able to speak in complete sentences GI Inspection: Yes normal to inspection Neuro General: patient oriented x3 and moves all extremities Cranial nerves: Yes Equal, round and reactive pupils present Cognition (Neuro): normal cognition Motor exam (neuro): 5/5 motor strength present throughout Sensory Exam: Normal double simultaneous stimulation for sensation Coordination: [id number] test normal Extrem General: Yes normal to inspection, Yes full ROM and Yes capillary refill normal Psych Appearance: grossly normal Mental Status: mental status grossly normal Affect: normal affect Attitude: cooperative Thought process: Normal thought process present Thought content: Normal thought content present Insight: Good insight present (Psych) Medical Decision Making Medical Decision Making MDM Narrative: Patient is a 47 year old assigned female at with no reported medical history presenting to the emergency department today with right lower dental pain. Patient's physical exam showed overall poor dentition and a small area of swelling and erythema without fluctuance as noted in the physical exam portion of this chart. I explained my physical exam findings to the patient. I answered all questions asked by the patient. I stressed the importance of the patient taking her medication as prescribed. I stressed the importance of the patient following up with her primary care provider and a dentist. I stressed the im portance of the patient returning to the emergency department immediately if her symptoms were to worsen or if she were to develop any dizziness, shortness of breath, difficulty breathing, chest pain, blurry vision, loss of vision, nausea, vomiting, abdominal pain, fever, chills, back pain, or any other complaints. Patient verbalized agreement and understanding with this treatment plan and discharge. Differential Diagnosis Differential Diagnoses: The differential diagnosis associated with the presentation includes dental pain, dental abscess Discharge Plan Discharge Clinical Impression: Abscess, dental Patient Disposition: Home, Self-Care Instructions: Dental Abscess (ED) Additional Instructions: Follow up with your primary care provider and a dentist. Return to the emergency department immediately if your symptoms worsen or if you develop any dizziness, shortness of breath, difficulty breathing, chest pain, blurry vision, loss of vision, nausea, vomiting, abdominal pain, fever, chills, back pain, or any other complaints. Call or visit any of the clinics below to establish with a dentist: [facility] [address] [place] [address] [facility] [address] [facility], [address] Eric Menendez [address] [place] [id number] [facility] [address] [place] [id number] [facility] [address] [place] [address] [place] [address] [place] [address] Prescriptions: New penicillin V potassium 500 mg tablet 500 mg PO BID 10 Days Qty: 20 0RF chlorhexidine gluconate [Peridex] 0.12 % mouthwash 15 ml buccal BID Qty: 118 0RF No Action ondansetron 4 mg tablet,disintegrating 4 mg PO Q8H PRN (Reason: nausea and vomiting) Qty: 20 0RF multivitamin Tablet 1 tab PO DAILY thiamine HCl (vitamin B1) 100 mg tablet 1 tab PO DAILY gabapentin 300 mg capsule 1 cap PO TID folic acid 1 mg tablet 1 tab PO DAILY acamprosate 333 mg tablet,delayed release (DR/EC) 2 tab PO TID buprenorphine-naloxone [Suboxone] 8-2 mg film 2 strip sublingual DAILY fluoxetine 40 mg capsule 1 cap PO DAILY cetirizine 10 mg tablet 1 tab PO DAILY PRN (Reason: allergies) buspirone 7.5 mg tablet 1 tab PO TID fluticasone propionate 50 mcg/actuation spray,suspension 2 spray intranasal DAILY omeprazole 20 mg capsule,delayed release(DR/EC) 20 mg PO DAILY Qty: 30 1RF Referrals: Hailee Avalos FNP [Primary Care Provider] - Print Language: Mongolian
[2022-10-25 14:08] VITALS: BP 125/69; PULSE 90; RESP 18; TEMP 35.9; O2SAT 96; BMI 31.1
== END 2022-10-25 14:20 | disposition home or self-care (01) ==
LOC: HO.ED 14:15
PROVIDERS: Emergency Provider Emergency Medicine; PCP Registered Nurse
DX: K04.7 Periapical abscess without sinus (principal); F17.210 Nicotine dependence, cigarettes, uncomplicated; Z71.6 Tobacco abuse counseling; Z79.899 Other long term (current) drug therapy
CPT/HCPCS: 99282; 99283

== ENCOUNTER 2023-05-01 14:53 | Outpatient (REF) | payer MEDICAID, SELFPAY ==
--- NOTE | ~2023-05-01 | MM_ITS ---
EXAMINATION: MM DIAGNOSTIC DIGITAL BREAST TOMOSYNTHESIS, BILATERAL US BREAST LIMITED, RIGHT MAMMOGRAPHY: CLINICAL INFORMATION: Due for screening. Six-month follow-up circumscribed oval hypoechoic mass at the 10:00 axis, 3 cm from the nipple. COMPARISON: Mammography: 04/30/2022, 04/24/2021 (BI-RADS 0); right breast ultrasound 04/30/2022, 04/24/2021, 10/23/2021. TECHNIQUE: Digital breast tomosynthesis is performed in both the craniocaudal and mediolateral oblique views along with computer-aided detection (CAD). Synthesized 2D images are generated from the tomosynthesis. FINDINGS: There are scattered areas of fibroglandular density (ACR BI-RADS breast composition Category b). Stable coarse calcifications in the far outer posterior right breast. There are a few coarse calcifications in the central right breast, unchanged. There are no suspicious pleomorphic grouped calcifications. There is a 1.0 cm oval mass in the right breast 10:00 axis, only seen well on the MLO projection. This correlates with the ultrasound finding. There are no suspicious masses, or developing regions of architectural distortion in either breast. The parenchymal pattern is unchanged. ULTRASOUND: CLINICAL INFORMATION: Follow-up oval mass 10:00 axis right breast, likely complicated cyst. COMPARISON: 04/30/2022, 04/24/2021, 10/23/2021. TECHNIQUE: Targeted sonographic evaluation was performed using a high frequency linear transducer. Attention was given to the 10:00 axis of the right breast. Selected archived documentation. FINDINGS: RIGHT BREAST: There is a stable hypoechoic mass or complex cyst with circumscribed margins, no posterior features, and no internal blood flow, measuring 8 x 7 x 4 mm, unchanged and stable from 2020. 2 years stability is consistent with benignity. No further follow-up recommended. No additional findings identified. MM/MM tomosynthesis diagnostic BI IMPRESSION: There are no findings suspicious for malignancy in either breast. Stable oval mass or complex cyst 10:00 axis, 3 cm from the nipple, unchanged over 2 years and benign. No further follow-up recommended. Recommend the patient return to routine annual screening mammography. OVERALL ASSESSMENT: Mammography: BI-RADS 2 - Benign Findings Ultrasound: BI-RADS 2 - Benign Findings RECOMMENDATION: 1 year F/U This patient's information was entered into a reminder system with a target due date for their next mammogram.
== END 2023-05-01 14:54 | disposition home or self-care (01) ==
LOC: HO.MAMMO 14:53
PROVIDERS: PCP Student in an Organized Health Care Education/Training Program; Visit Provider Student in an Organized Health Care Education/Training Program
DX: N63.11 Unspecified lump in the right breast, upper outer quadrant (principal)
CPT/HCPCS: 76642; 77062; 77066

== ENCOUNTER → 2023-05-01 15:00 | Outpatient (BNV) | payer MEDICAID, SELFPAY | PROVIDERS: PCP Student in an Organized Health Care Education/Training Program; Visit Provider Radiology Diagnostic Radiology | DX: N63.11 Unspecified lump in the right breast, upper outer quadrant (principal) | CPT/HCPCS: 76642; 77062; 77066 ==

== ENCOUNTER 2023-10-31 16:39 | Emergency (ER) | payer MEDICAID, SELFPAY ==
[2023-10-31 17:26] VITALS: BP 146/89; PULSE 98; RESP 16; TEMP 36.4; O2SAT 100; BMI 29.3
--- NOTE | 2023-10-31 17:27 | ED.SKABFB ---
HPI - Skin/Abscess/Foreign Bdy General Chief complaint: Skin/Abscess/Foreign Body Stated complaint: ? poison sirisha Time Seen by Provider: 10/31/23 17:26 Source: patient Mode of arrival: ambulatory Limitations: no limitations History of Present Illness ED Provider: Renetta Silva PA-C HPI narrative: 48-year-old female presents to the ER for evaluation for diffuse, itchy rash on her arms, legs, back. She feels like it may be spreading to her eyes so she came to the ER for evaluation. She denies any vision changes, no foreign body sensation. No rash on her face, she just reports her eyes feel ?different. ? Her currently has poison sirisha. 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 MD complaint: rash Onset (ago): day(s) (1) Location: generalized Severity: moderate Quality: pruritic Pain Consistency: constant Relieving factors: other (Topical calamine lotion) Exacerbating factors: other (Itching) Context: other (Recent yd work, exposure to poison sirisha) Associated symptoms: denies other symptoms Treatments prior to arrival: other (Calamine lotion) Related Data Home Medications ?Medication ?Instructions ?Recorded ?Confirmed acamprosate 333 mg tablet,delayed 2 tab PO TID 11/23/21 03/03/22 release buprenorphine 8 mg-naloxone 2 mg 2 strip sublingual DAILY 11/23/21 03/03/22 sublingual film (Suboxone) folic acid 1 mg tablet 1 tab PO DAILY 11/23/21 03/03/22 gabapentin 300 mg capsule 1 cap PO TID 11/23/21 03/03/22 multivitamin 1 tab PO DAILY 11/23/21 03/03/22 thiamine HCl (vitamin B1) 100 mg 1 tab PO DAILY 11/23/21 03/03/22 tablet buspirone 7.5 mg tablet 1 tab PO TID 03/03/22 03/03/22 cetirizine 10 mg tablet 1 tab PO DAILY PRN allergies 03/03/22 03/03/22 fluoxetine 40 mg capsule 1 cap PO DAILY 03/03/22 03/03/22 fluticasone propionate 50 2 spray intranasal DAILY 03/03/22 03/03/22 mcg/actuation nasal spray,suspension Previous Rx's ?Medication ?Instructions ?Recorded ondansetron 4 mg disintegrating 4 mg PO Q8H PRN nausea and 10/14/21 tablet vomiting #20 tabs omeprazole 20 mg capsule,delayed 20 mg PO DAILY #30 caps 03/05/22 release chlorhexidine gluconate 0.12 % 15 ml buccal BID #118 mL 10/25/22 mouthwash (Peridex) penicillin V potassium 500 mg 500 mg PO BID 10 days #20 tabs 10/25/22 tablet prednisone 10 mg tablets in a dose See Taper PO DAILY #48 ea 10/31/23 pack Allergies Allergy/AdvReac Type Severity Reaction Status Date / Time No Known Allergies Allergy Unknown UNKNOWN Verified 10/31/23 17:28 [NO KNOWN ALLERGIES] Review of Systems Review of Systems: Yes all other systems are reviewed and are negative PMFSH Past Medical History Medical History Acute hepatitis Alcohol abuse Anxiety Opioid use disorder Surgical History No pertinent past surgical history Family History Family History Other No family history of coronary artery disease Social History Social History Household Members: Significant Other Household Members Other:: boyfriends family Housing: House Do you presently have visiting nurse or other home services: No Alcohol intake: current Alcohol intake frequency: does not drink Alcohol type: hard liquor Patient Tobacco Use Status: Current everyday Tobacco user Tobacco use type: Cigarette Cigarette Packs Per Day: 0.5 Cigarettes Per Day: 10.0 Years Smoked: 25 e-Cigarette/Vaping Use: Never Used Second Hand Smoke Exposure: Yes Substance Use Type: Marijuana service: No Physical Exam Vital Signs: Vital Signs: Last Vital Signs Temp 97.5 F 10/31/23 17:26 Pulse 98 10/31/23 17:26 Resp 16 10/31/23 17:26 BP 146/89 H 10/31/23 17:26 Pulse Ox 100 10/31/23 17:26 O2 Del Method Room Air 10/31/23 17:26 BMI result Body Mass Index 29.3 Appearance: Alert. Oriented X3. No acute distress. Head: normocephalic, atraumatic. Eyes: Normal external inspection, no scleral icterus or injection. No discharge. No periorbital edema. No rash ENT: Normal external inspection Neck: Normal inspection. Respiratory: No respiratory distress. Speaking in complete sentences Skin: Skin warm and dry. Normal skin color. Normal skin turgor. There is a scattered rash with subcentimeter patches of raised erythematous blisters scattered on the bilateral forearms, dorsal portions of the hands, upper back and bilateral lower extremities Extremities: No lower extremity edema. No joint swelling. Neuro/psych: Oriented X 3. Grossly normal, nonfocal Medical Decision Making Medical Decision Making MDM Narrative: 48-year-old female presenting to the ER for evaluation of a red, itchy rash on her extremities and back after known exposure to poison sirisha. Examination is consistent with poison sirisha dermatitis. Will prescribe prednisone taper. Patient counseled on symptomatic management. Stable for discharge home. Differential Diagnosis Differential Diagnoses: The differential diagnosis associated with the presentation includes Contact dermatitis, allergic dermatitis, poison sirisha dermatitis, eczema External Record Review External record reviewed: Prior outpatient labs Prescription Management I considered prescription management with: Other (Prednisone) Critical Care Time Critical Care Time Critical Care Time: No Discharge Plan Discharge Clinical Impression: Poison sirisha dermatitis Patient Disposition: Home, Self-Care Instructions: Poison Sirisha (ED) Additional Instructions: Take the prescribed steroid taper as directed. Take the entire course and do not miss any doses. Do not stopped a course if the rash gets better, this can cause a rebound rash. You can take [id number] Benadryl or use topical Benadryl cream as needed for itching. If you develop new or worsening symptoms call 911 or come back to the ER for further evaluation. Prescriptions: New prednisone 10 mg tablets,dose pack See Taper PO DAILY Qty: 48 0RF Taper: Prednisone 40 mg daily for 3 Days and 0 Hour 30 mg daily for 3 Days and 0 Hour 20 mg daily for 3 Days and 0 Hour 10 mg daily for 3 Days and 0 Hour Rx Instructions: 40 mg Daily x3 days, 30 mg daily x3 days, 20 mg daily x3 days, 10 mg daily x3 days No Action ondansetron 4 mg tablet,disintegrating 4 mg PO Q8H PRN (Reason: nausea and vomiting) Qty: 20 0RF multivitamin Tablet 1 tab PO DAILY thiamine HCl (vitamin B1) 100 mg tablet 1 tab PO DAILY gabapentin 300 mg capsule 1 cap PO TID folic acid 1 mg tablet 1 tab PO DAILY acamprosate 333 mg tablet,delayed release (DR/EC) 2 tab PO TID buprenorphine-naloxone [Suboxone] 8-2 mg film 2 strip sublingual DAILY fluoxetine 40 mg capsule 1 cap PO DAILY cetirizine 10 mg tablet 1 tab PO DAILY PRN (Reason: allergies) buspirone 7.5 mg tablet 1 tab PO TID fluticasone propionate 50 mcg/actuation spray,suspension 2 spray intranasal DAILY omeprazole 20 mg capsule,delayed release(DR/EC) 20 mg PO DAILY Qty: 30 1RF penicillin V potassium 500 mg tablet 500 mg PO BID 10 Days Qty: 20 0RF chlorhexidine gluconate [Peridex] 0.12 % mouthwash 15 ml buccal BID Qty: 118 0RF Stand Alone Forms: Work/School Release Print Language: Taiwanese
[2023-10-31 17:42] VITALS: BP 146/89; PULSE 98; RESP 16; TEMP 36.4; O2SAT 100
== END 2023-10-31 17:43 | disposition home or self-care (01) ==
LOC: HO.ED 17:36
PROVIDERS: Emergency Provider Student in an Organized Health Care Education/Training Program
DX: L23.7 Allergic contact dermatitis due to plants, except food (principal); L24.7 Irritant contact dermatitis due to plants, except food
CPT/HCPCS: 99282; 99283

== ENCOUNTER 2023-11-18 19:40 | Emergency (ER) | payer MEDICAID, SELFPAY ==
[2023-11-18 20:04] VITALS: BP 144/90; PULSE 99; RESP 18; TEMP 37.6; O2SAT 98; BMI 31.2
--- NOTE | 2023-11-18 20:05 | ED_ITS ---
HPI - General Adult General Chief complaint: Urogenital-Female Stated complaint: possible UTI Time Seen by Provider: 11/18/23 23:11 Source: patient Mode of arrival: ambulatory Limitations: no limitations History of Present Illness HPI narrative: Patient is a 48-year-old female who presents to the emergency department for evaluation. She reports that she has been experiencing diffuse lower back pain, fatigue, burning sensation in her chest with intermittent cough, tactile fever. She also reports that she has been having urinary urgency and hesitancy. She denies neck pain, shortness of breath, nausea, vomiting, abnormal vaginal discharge, hematuria, diarrhea, constipation. Related Data Home Medications ?Medication ?Instructions ?Recorded ?Confirmed acamprosate 333 mg tablet,delayed 2 tab PO TID 11/23/21 03/03/22 release buprenorphine 8 mg-naloxone 2 mg 2 strip sublingual DAILY 11/23/21 03/03/22 sublingual film (Suboxone) folic acid 1 mg tablet 1 tab PO DAILY 11/23/21 03/03/22 gabapentin 300 mg capsule 1 cap PO TID 11/23/21 03/03/22 multivitamin 1 tab PO DAILY 11/23/21 03/03/22 thiamine HCl (vitamin B1) 100 mg 1 tab PO DAILY 11/23/21 03/03/22 tablet buspirone 7.5 mg tablet 1 tab PO TID 03/03/22 03/03/22 cetirizine 10 mg tablet 1 tab PO DAILY PRN allergies 03/03/22 03/03/22 fluoxetine 40 mg capsule 1 cap PO DAILY 03/03/22 03/03/22 fluticasone propionate 50 2 spray intranasal DAILY 03/03/22 03/03/22 mcg/actuation nasal spray,suspension Previous Rx's ?Medication ?Instructions ?Recorded ondansetron 4 mg disintegrating 4 mg PO Q8H PRN nausea and 10/14/21 tablet vomiting #20 tabs omeprazole 20 mg capsule,delayed 20 mg PO DAILY #30 caps 03/05/22 release chlorhexidine gluconate 0.12 % 15 ml buccal BID #118 mL 10/25/22 mouthwash (Peridex) penicillin V potassium 500 mg 500 mg PO BID 10 days #20 tabs 10/25/22 tablet prednisone 10 mg tablets in a dose See Taper PO DAILY #48 ea 10/31/23 pack Allergies Allergy/AdvReac Type Severity Reaction Status Date / Time No Known Allergies Allergy Unknown UNKNOWN Verified 11/18/23 20:08 [NO KNOWN ALLERGIES] Review of Systems Review of Systems: Yes all other systems are reviewed and are negative [facility] Past Medical History Attestation statement: The following information was validated with the patient. Source: old records reviewed Medical History Opioid use disorder Acute hepatitis Anxiety Alcohol abuse Surgical History No pertinent past surgical history Family History Family History Other No family history of coronary artery disease Social History Social History Household Members: Significant Other Household Members Other:: boyfriends family Housing: House Do you presently have visiting nurse or other home services: No Alcohol intake: current Alcohol intake frequency: does not drink Alcohol type: hard liquor Patient Tobacco Use Status: Current everyday Tobacco user Tobacco use type: Cigarette Cigarette Packs Per Day: 0.5 Cigarettes Per Day: 10.0 Years Smoked: 25 e-Cigarette/Vaping Use: Never Used Second Hand Smoke Exposure: Yes Substance Use Type: Marijuana Advance Directives: No Advance Directives Information Provided: No Do you have a plan to hurt others: No Plan service: No Physical Exam ED Vital Signs: Vital Signs - 24 hr 11/18/23 20:04 11/18/23 23:36 Temperature 99.6 F 99 F Pulse Rate 99 68 Respiratory Rate 18 16 Blood Pressure 144/90 H 142/84 H Pulse Oximetry 98 96 Oxygen Delivery Method Room Air Room Air BMI result Body Mass Index 31.2 Appearance: Alert.?Oriented to person, place and time. No acute distress.?Normal affect. Eyes: Pupils equal, round and reactive to light.? ENT: Pharynx normal.?? Neck: Normal inspection.? Neck supple.?? CVS: Heart sounds normal. Normal heart rate and rhythm.? Pulses normal.?? Respiratory: No respiratory distress.? Lung sounds clear to auscultation bilaterally?? Abdomen: Soft and non-tender. Normoactive bowel sounds. No CVA tenderness. No pulsatile mass.?? Skin: Skin warm and dry.? Normal skin color.? Extremities: No lower extremity edema.? No calf ttp? Neuro: Moves all extremities spontaneously. Sensation intact bilaterally. Ambulates with normal steady gait. Course Course Course Narrative: This is a Rapid Medical Examination (RME) performed by Ashlee Villafuerte PA-C in triage. Full HPI, ROS, assessment and treatment plan per primary provider in the Main ED. 48 yo female here w/ multiple concerns. reports fatigue, subjective fevers, right lower back pain, increased urinary frequency however only urinating small amounts, nausea without vomiting x5 days. reports taking tylenol at 1500 today. denies dysuria, hematuria. no known sick contacts. abd soft, NT. no cvat. Plan: labs, UA, viral serology Medical Decision Making Medical Decision Making MDM Narrative: Patient is a 48-year-old female who presents emergency department for multiple complaints as per HPI. Overall she appears fatigued, she is afebrile without tachycardia tachypnea or hypoxia. Lung sounds are clear bilaterally. Abdominal examination was benign. No CVA tenderness. Ambulatory with a steady gait. Urinalysis with trace microscopic hematuria, 1+ urine bacteria, this additionally squamous epithelial cells present, concern for urinary tract infection versus urogenital contamination. Given she was symptomatically treated log, she has no CVA tenderness to suggest pyelonephritis. She is tolerating oral intake. She is also noted to be COVID-19 positive today; we discussed Paxlovid indication for use, potential side effects, declines. At this time not consistent with acute pneumonia. Feel that she is stable for discharge home, outpatient follow-up with primary care provider, and strict return precautions. All questions were answered. Differential Diagnosis Differential Diagnoses: The differential diagnosis associated with the presentation includes (See narrative above) Lab Data [facility] Lab Attestation statement: I reviewed the patient's lab results. (See narrative above) Labs: Lab Results 11/18/23 11/18/23 Range/Units 20:17 20:22 Urine Color Yellow Urine Appearance Cloudy Urine pH 8.5 (5.0-9.0) Ur Specific [place] 1.020 (1.005-1.025) Urine Protein Negative (Neg-Trace) mg/dL Urine Glucose (UA) Negative (Negative) mg/dL Urine Ketones Negative (Negative) mg/dL Urine Blood Trace H (Negative) Urine Nitrite Negative (Negative) Ur Leukocyte Esterase Negative (Negative) Urine RBC 6-10 H (0-2) /HPF Urine WBC 0-5 (0-5) /HPF Ur Squamous Epith Cells 6-10 (0-2) /HPF Urine Bacteria 1+ (None Seen) Hyaline Casts 0-2 (0-2) /LPF Influenza Type A (PCR) NEGATIVE (Negative) Influenza Type B (PCR) NEGATIVE (Negative) RSV RNA Qual (PCR) NEGATIVE (Negative) SARS-CoV-2 RNA (RT-PCR) POSITIVE A (Negative) External Record Review External record reviewed: Outpatient record Prescription Management I considered prescription management with: Antibiotic Discharge Plan Discharge Clinical Impression: Urinary tract infection, COVID-19 Patient Disposition: Home, Self-Care Instructions: Urinary Tract Infection in Women (ED), COVID-19 (Coronavirus Disease 2019) (ED) Prescriptions: No Action ondansetron 4 mg tablet,disintegrating 4 mg PO Q8H PRN (Reason: nausea and vomiting) Qty: 20 0RF multivitamin Tablet 1 tab PO DAILY thiamine HCl (vitamin B1) 100 mg tablet 1 tab PO DAILY gabapentin 300 mg capsule 1 cap PO TID folic acid 1 mg tablet 1 tab PO DAILY acamprosate 333 mg tablet,delayed release (DR/EC) 2 tab PO TID buprenorphine-naloxone [Suboxone] 8-2 mg film 2 strip sublingual DAILY fluoxetine 40 mg capsule 1 cap PO DAILY cetirizine 10 mg tablet 1 tab PO DAILY PRN (Reason: allergies) buspirone 7.5 mg tablet 1 tab PO TID fluticasone propionate 50 mcg/actuation spray,suspension 2 spray intranasal DAILY omeprazole 20 mg capsule,delayed release(DR/EC) 20 mg PO DAILY Qty: 30 1RF penicillin V potassium 500 mg tablet 500 mg PO BID 10 Days Qty: 20 0RF chlorhexidine gluconate [Peridex] 0.12 % mouthwash 15 ml buccal BID Qty: 118 0RF prednisone 10 mg tablets,dose pack See Taper PO DAILY Qty: 48 0RF Taper: Prednisone 40 mg daily for 3 Days and 0 Hour 30 mg daily for 3 Days and 0 Hour 20 mg daily for 3 Days and 0 Hour 10 mg daily for 3 Days and 0 Hour Rx Instructions: 40 mg Daily x3 days, 30 mg daily x3 days, 20 mg daily x3 days, 10 mg daily x3 days Referrals: Physician,Unknown J [Primary Care Provider] - Print Language: Belizean
[2023-11-18 20:32] LABS: Appearance Urine Cloudy; Color Urine Yellow; Glucose Urine UA Negative (Negative); Leukocyte Esterase Urine Negative (Negative); Nitrite Urine Negative (Negative); PH 8.5 (5.0-9.0); UMIC TRIGGER UACC YES; Urine Blood Trace (Negative); Urine Ketones Negative (Negative); Urine Protein Negative (Neg-Trace)
[2023-11-18 20:35] LABS: Bacteria Urine 1+ (None Seen); Hyaline Casts Urine 0-2 /LPF (0-2); WBC Urine 0-5 /HPF (0-5)
[2023-11-18 21:06] LABS: Influenza A PCR NEGATIVE (Negative); Influenza B PCR NEGATIVE (Negative); Resp Syncy Virus RNA Qual PCR NEGATIVE (Negative); SARS COV2 PCR INHOUSE POSITIVE (Negative)
[2023-11-18 23:36] VITALS: BP 142/84; PULSE 68; RESP 16; TEMP 37.2; O2SAT 96
[2023-11-19] MEDS: cefuroxime axetiL 500 MG TABLET PO (00:09)
[2023-11-19 00:24] VITALS: BP 0/0; PULSE 0; RESP 0; TEMP -17.7; TEMP 0; O2SAT 0
== END 2023-11-19 00:10 | disposition home or self-care (01) ==
PROVIDERS: Physician Assistant Medical; Emergency Provider Internal Medicine
DX: U07.1 COVID-19 (principal); N39.0 Urinary tract infection, site not specified; M54.50 Low back pain, unspecified; R05.9 Cough, unspecified; R50.9 Fever, unspecified; R39.11 Hesitancy of micturition; R39.15 Urgency of urination
CPT/HCPCS: 0241U; 81001; 99283

== ENCOUNTER 2024-02-25 09:14 | Outpatient (REF) | payer MEDICAID, SELFPAY ==
[2024-02-25 16:51] LABS: Urine Cytology See Pathology rpt
== END 2024-02-25 09:15 | disposition home or self-care (01) ==
LOC: HO.LNP 09:14
PROVIDERS: PCP Student in an Organized Health Care Education/Training Program; Visit Provider Nurse Practitioner Family
DX: Z13.9 Encounter for screening, unspecified (principal); F17.210 Nicotine dependence, cigarettes, uncomplicated; R31.29 Other microscopic hematuria
CPT/HCPCS: 81003; 88112; 99212

== ENCOUNTER 2024-02-25 09:14 | Outpatient (AMB) | payer MEDICAID, SELFPAY ==
--- NOTE | 2024-02-25 09:16 | A.OFFVIS_ITS ---
Intake Visit Reasons: microscopic hematuria Intake Note: New Patient presents for initial visit for micro hematuria Urology Medications: none Blood Thinner: none Smoker: yes; 30yrs Brim Cutter Required: No Accompanied by: Self / Same As Patient Allergies No Known Allergies [NO KNOWN ALLERGIES] Allergy (Unknown, Verified 02/25/24 09:49) UNKNOWN Medication List - Last Reconciled 02/25/24 by BACILIO Dietz buprenorphine-naloxone 8-2 mg (Suboxone) 2 strips sublingual DAILY cetirizine 1 tab PO DAILY PRN fluticasone propionate 50 mcg/actuation 2 sprays intranasal DAILY folic acid 1 tab PO DAILY gabapentin 1 cap PO TID multivitamin 1 tab PO DAILY thiamine HCl (vitamin B1) 1 tab PO DAILY venlafaxine 75 mg PO QAM HPI Comments Details: Ashley Stock is a very pleasant 48-year-old female patient of Dr. Toro. She has a past medical history of opioid use disorder, acute hepatitis, anxiety, nicotine dependence, and alcohol abuse. She presents to the office today as a new patient for microscopic hematuria. In discussion with the patient today she reports having followed up with her PCP for ongoing low-back pain she had been experiencing at which time a urinalysis noted microscopic hematuria and urology referral was made for further assessment evaluation. In office urinalysis results reviewed with the patient today 1+ microscopic hematuria noted. When asked she does report a longstanding history of nicotine dependence for over 25 years. She reports smoking approximately half a pack of cigarettes per day. She otherwise denies any known workplace chemical exposure. We discussed at length potential causes of microscopic hematuria. We discussed further workup to include CT urogram as well as in office cystoscopy. She reports feeling low-back pain seems to be relieved with increase in water intake. When asked she denies any previous history of nephrolithiasis. She denies urinary urgency, urinary frequency, incontinence, nocturia, hematuria, dysuria, foul smelling urine, changes to urinary stream, fever, and or chills. In assessment of the patient today no CVA tenderness noted bilaterally. She otherwise offers no other issues or concerns at this time. [facility] Medical History Opioid use disorder Acute hepatitis Anxiety Alcohol abuse Surgical History No pertinent past surgical history Family History Other No family history of coronary artery disease Social History Household Members: Significant Other Household Members Other:: boyfriends family Housing: House Do you presently have visiting nurse or other home services: No Alcohol intake: current Alcohol intake frequency: does not drink Alcohol type: hard liquor Patient Tobacco Use Status: Current everyday Tobacco user Tobacco use type: Cigarette Cigarette Packs Per Day: 0.5 Cigarettes Per Day: 10.0 Years Smoked: 25 e-Cigarette/Vaping Use: Never Used Second Hand Smoke Exposure: Yes Substance Use Type: Marijuana service: No Review of Systems Const All systems reviewed & are unremarkable except as noted in HPI and below Physical Exam Const General: cooperative, healthy appearing, comfortable, no acute distress, well developed, alert and awake Orientation/consciousness: patient oriented x3 Limitations: no limitations HEENT Head: Yes normal to inspection, Yes normocephalic and Yes atraumatic Ears: hearing grossly normal bilaterally Eyes General: appearance normal, both eyes and all related structures Neck Neck: Yes normal visual inspection and Yes trachea midline Chest Chest palpation & inspection: normal inspection of the chest Resp Effort & Inspection: normal respiratory effort and able to speak in complete sentences Cardio Rate: regular rate GI Inspection: Yes normal to inspection General: Yes no CVA tenderness Back/Spine/Pelvis Back: no CVA tenderness Skin General skin exam: no rashes or lesions noted Neuro General: patient oriented x3 Extrem General: Yes normal to inspection Psych Appearance: grossly normal and well kempt Mental Status: mental status grossly normal Speech and movement: Normal speech and movement present and Clear speech present Affect: normal affect Attitude: cooperative Thought process: Normal thought process present Thought content: Normal thought content present Insight: Fair insight present (Psych) Judgement: Fair judgement present (Psych) Results AMB Urinalysis, Automated UA Leukoctes 0 Sharonda/uL Last Edit by Sofi Truong on 02/25/24 09:34 UA Nitrite Last Edit by Brandyce Maryss on 02/25/24 09:34 UA Urobilinogen 0.2 mg/dL Last Edit by Brandyce Bress on 02/25/24 09:34 UA Protein 15 mg/dL Last Edit by Brandyce Bress on 02/25/24 09:34 UA pH 5.5 Last Edit by Brandyce Bress on 02/25/24 09:34 UA Blood 25 Bakari/uL Last Edit by Brandyce Bress on 02/25/24 09:34 UA Specific [place] 1.025 Last Edit by Brandyce Bress on 02/25/24 09:34 UA Ketone Last Edit by Brandyce Dionne on 02/25/24 09:34 UA Bilirubin 0 mg/dL Last Edit by JulioC esarycfunmilayo Truong on 02/25/24 09:34 UA Glucose 0 mg/dL Last Edit by Julio Cesarycfunmilayo Truong on 02/25/24 09:34 Results Reviewed Results Reviewed: Laboratory Last Values Urine pH (Auto) 5.5 02/25/24 09:20 Specific [place] (Auto) 1.025 02/25/24 09:20 Urine Protein (Auto) 15 mg/dL 02/25/24 09:20 Glucose (UA)(Auto) 0 mg/dL 02/25/24 09:20 Urine Blood (Auto) 25 Bakari/uL 02/25/24 09:20 Urine Bilirubin (Auto) 0 mg/dL 02/25/24 09:20 Urine Urobilinogen (Auto) 0.2 mg/dL 02/25/24 09:20 Leukocyte Esterase (Auto) 0 Sharonda/uL 02/25/24 09:20 Assessment & Plan Assessment & Plan (1) Nicotine dependence: Code(s): F17.200 - Nicotine dependence, unspecified, uncomplicated Category: Medical (2) Microscopic hematuria: Code(s): R31.29 - Other microscopic hematuria Category: Medical Plan In office urinalysis results reviewed with the patient today; as noted above; will send for urine cytology. Discussed obtaining CT urogram for further assessment evaluation. BUN and creatinine ordered for imaging. Discussed at length potential causes of microscopic hematuria . Discussed, educated, and stressed the importance of limiting/quitting nicotine dependence for overall health and well-being. Patient currently denies any bothersome urinary issues or concerns. She reports be happy with current voiding parameters. Follow-up in office cystoscopy with imaging to be completed prior; or sooner with any issues, concerns, and or questions. Orders: Orders Urine Cytology Today Z13.9 - Encounter for screening, unspecified CT urogram Today F17.200 - Nicotine dependence, unspecified, uncomplicated, R31.0 - Gross hematuria, R31.29 - Other microscopic hematuria AMB Urinalysis Automated Today Z13.9 - Encounter for screening, unspecified Blood Urea Nitrogen Today F17.200 - Nicotine dependence, unspecified, uncomplicated, R31.29 - Other microscopic hematuria Creatinine Today F17.200 - Nicotine dependence, unspecified, uncomplicated, R31.29 - Other microscopic hematuria Patient Instructions: The patient had an opportunity to ask questions regarding the treatment plan. All questions were answered. Physical exam, labs, and imaging were discussed and reviewed in detail. As well as risks, benefits, and discussion of treatment choices. No major barriers to understanding were identified. The patient expressed understanding and agreement with the above treatment plan. The patient was made aware they should contact our office by phone for worsening of their current condition, the appearance of new symptoms, or with any questions or concerns. Compliance is encouraged with any medications and follow up testing that is ordered. It is a privilege to be allowed the opportunity to participate in? your urological care.? Again, if you have any questions or concerns If you have any questions or concerns please do not hesitate to contact me. The office is [phone]. This note is constructed using voice recognition software. While every effort has been made to ensure accuracy brush holder assembler errors may have been included. Yours sincerely, BACILIO Dietz Coding Level of Care Code New Pt Level 3 (69378) Diagnoses Nicotine dependence F17.200 Microscopic hematuria R31.29
== END 2024-02-25 09:51 | disposition home or self-care (01) ==
PROVIDERS: PCP Student in an Organized Health Care Education/Training Program; Visit Provider Nurse Practitioner Family
DX: F17.200 Nicotine dependence, unspecified, uncomplicated (principal); R31.29 Other microscopic hematuria; Z13.9 Encounter for screening, unspecified
CPT/HCPCS: 99203

== ENCOUNTER 2024-04-12 11:33 | Outpatient (REF) | payer MEDICAID, SELFPAY ==
[2024-04-12 12:40] LABS: Blood Urea Nitrogen 12 mg/dL (9-16); Estimated Glomerular Filt Rate > 60
== END 2024-04-12 11:34 | disposition home or self-care (01) ==
LOC: HO.LAB 11:33
PROVIDERS: Visit Provider Nurse Practitioner Family
DX: F17.200 Nicotine dependence, unspecified, uncomplicated (principal); R31.29 Other microscopic hematuria
CPT/HCPCS: 36415; 82565; 84520

== ENCOUNTER 2024-04-14 11:05 | Outpatient (AMB) | payer MEDICAID, SELFPAY ==
--- NOTE | 2024-04-14 11:15 | A.OFFVIS_ITS ---
Intake Visit Reasons: Cystoscopy(Microhematuria) Intake Note: Patient is Present for Cystoscopy Urology Med: None Antibiotic Allergy: None Blood Thinner: None Last Cytology: 02/25/2024- Urine: Negative for high-grade urothelial carcinoma Patient does reports that she has been having menstural alike bleeding States she has not had her period in few years URO- G Disposable Cystoscope lot: [id number] exp:09/02/2026 Consular Officer Required: No Accompanied by: Self / Same As Patient Allergies No Known Allergies [NO KNOWN ALLERGIES] Allergy (Unknown, Verified 04/14/24 11:24) UNKNOWN HPI Comments Details: Ashley is a pleasant female. She is a patient of Dr. Toro. 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 Follow in 6 months to check for persistent hematuria Were then follow yearly with reconsideration of evaluation per AUA guidelines Microscopic hematuria Longstanding smoker greater than 25 year pack per day Denies workplace exposure Denies urinary storage or emptying symptoms CT pending Cytology - 03/16 negative PFSH Medical History Opioid use disorder Acute hepatitis Anxiety Alcohol abuse Surgical History No pertinent past surgical history Family History Other No family history of coronary artery disease Social History Household Members: Significant Other Household Members Other:: boyfriends family Housing: House Do you presently have visiting nurse or other home services: No Alcohol intake: current Alcohol intake frequency: does not drink Alcohol type: hard liquor Patient Tobacco Use Status: Current everyday Tobacco user Tobacco use type: Cigarette Cigarette Packs Per Day: 0.5 Cigarettes Per Day: 10.0 Years Smoked: 25 e-Cigarette/Vaping Use: Never Used Second Hand Smoke Exposure: Yes Substance Use Type: Marijuana service: No Review of Systems Const Denies chills and Denies fever(s) Card Reports no additional complaints and Denies syncope Resp Denies cough GI Denies abdominal pain and Denies heartburn Reports as per HPI and Denies change in libido Neuro Denies syncope Psych Denies change in libido Endo Denies change in libido Physical Exam Const General: cooperative, healthy appearing, comfortable and no acute distress Orientation/consciousness: patient oriented x3 HEENT Face and sinus: Yes normal facial exam Mouth: moist mucous membranes Neck Neck: Yes normal visual inspection, Yes full ROM and Yes trachea midline Chest Chest palpation & inspection: normal inspection of the chest Resp Effort & Inspection: normal respiratory effort, able to speak in complete sentences and no respiratory distress GI Inspection: Yes normal to inspection Back/Spine/Pelvis Cervical Spine: normal cervical lordosis Thoracic/Lumbar Spine: thoracic and lumbar spine normal to inspection Skin General skin exam: no rashes or lesions noted Neuro General: patient oriented x3, gait normal, tone normal and moves all extremities Extrem General: Yes normal to inspection and Yes capillary refill normal Office Procedures Cystoscopy Consent Discussed risk and benefit or proposed procedure with the patient. Information consent for procedure given to the patient. Discussed technical aspects, risks, benefits and alternatives in full. Addressed all of the patient's questions and concerns regarding the procedure. The patient demonstrated knowledge and understanding. They wish to proceed with this procedure. Preparation The patient was prepped in the usual manner. A telecommunications project manager was present and in the room. Genitalia was prepped with betadine solution in a sterile manner. Lidocaine Jelly 2% was placed into the urethra and 16Fr flexible Olympus cystoscope was inserted into the meatus after adequate lubrication. Procedure Meatus normal position Urethra normal Bladder examination with retroflexion of cystoscope Bladder Orifices normal shape and position Trigone metaplasia Bladder Capacity - Trabeculations - Cellule Formation - Diverticulum Formation - Mucosal Erythema -- Bladder Tumor - DISPOSABLE SCOPE URO-G FLEXIBLE SCOPE Procedure code (CPT) selection complete Office Meds lidocaine HCl 2 % mucosal jelly in applicator Performing Provider: Robert Hurt [place] [facility] [place] [facility] Administered by: LUCY Mcduffie on 04/14/24 11:29 Dose Route Admin Location Dispensed Lot Number Expiration Date [facility] [employer] 10 mL intra-urethral 10 mL nitrofurantoin monohydrate/macrocrystals 100 mg capsule Performing Provider: Robert Hurt MD [place] [facility] [place] [facility] Administered by: LUCY Mcduffie on 04/14/24 11:29 Dose Route Admin Location Dispensed Lot Number Expiration Date [facility] [employer] 100 mg PO 1 cap naproxen 500 mg tablet Performing Provider: Robert Hurt MD [place] [facility] [place] [facility] Administered by: LUCY Mcduffie on 04/14/24 11:29 Dose Route Admin Location Dispensed Lot Number Expiration Date [facility] [employer] 500 mg PO 1 tab Results AMB Urinalysis, Automated UA Leukoctes 0 Sharonda/uL Last Edit by LUCY Mcduffie on 04/14/24 11:34 UA Nitrite Negative Last Edit by LUCY Mcduffie on 04/14/24 11:34 UA Urobilinogen 0.2 mg/dL Last Edit by FLEX McduffieA on 04/14/24 11:3 4 UA Protein 15 mg/dL Last Edit by LUCY Mcduffie on 04/14/24 11:34 UA pH 6.0 Last Edit by FLEX McduffieA on 04/14/24 11:34 UA Blood 200 Bakari/uL Last Edit by LUCY Mcduffie on 04/14/24 11:34 UA Specific [place] 1.030 Last Edit by FLEX McduffieA on 04/14/24 11: 34 UA Ketone Negative Last Edit by FLEX McduffieA on 04/14/24 11:34 UA Bilirubin 0 mg/dL Last Edit by FLEX McduffieA on 04/14/24 11:34 UA Glucose 0 mg/dL Last Edit by FLEX McduffieA on 04/14/24 11:34 Results Reviewed Results Reviewed: Laboratory Last Values Urine pH (Auto) 6.0 04/14/24 11:25 Specific [place] (Auto) 1.030 04/14/24 11:25 Urine Protein (Auto) 15 mg/dL 04/14/24 11:25 Glucose (UA)(Auto) 0 mg/dL 04/14/24 11:25 Urine Ketones (Auto) Negative 04/14/24 11:25 Urine Blood (Auto) 200 Bakari/uL 04/14/24 11:25 Urine Nitrite (Auto) Negative 04/14/24 11:25 Urine Bilirubin (Auto) 0 mg/dL 04/14/24 11:25 Urine Urobilinogen (Auto) 0.2 mg/dL 04/14/24 11:25 Leukocyte Esterase (Auto) 0 Sharonda/uL 04/14/24 11:25 Assessment & Plan Assessment & Plan (1) Microscopic hematuria: Code(s): R31.29 - Other microscopic hematuria Category: Medical Plan Six-month follow-up nurse-practitioner UA Orders: Orders AMB Urinalysis Automated Today Z13.9 - Encounter for screening, unspecified AMB Cystoscopy Today R31.29 - Other microscopic hematuria Patient Instructions: Imaging studies, laboratory and physical exam results were discussed and re viewed in detail. No major barriers to patient understanding were identified. An opportunity to ask questions regarding the treatment plan was provided. All questions were answered. The patient expressed understanding and agreement with the above treatment plan. The patient is aware they should contact our office by phone for worsening of their current condition or the appearance of new urologic symptoms. Compliance is encouraged with any medications and followup testing that is ordered. It is a privilege to participate in the urologic care of your patient. If you have any questions or concerns regarding treatment for the above conditions, or other urologic issues, please do not hesitate to contact me. The office telephone contact is [phone]. This note is constructed using voice recognition software. While every effort has been made to ensure accuracy director medical errors may have been included. Yours sincerely, Dr Robert Hurt MD, [facility] - Urology Providers of Expert, Compassionate Care for the Genitourinary System Coding Level of Care Code Est Pt Level 3 (48801) Diagnoses Microscopic hematuria R31.29
== END 2024-04-14 12:03 | disposition home or self-care (01) ==
PROVIDERS: PCP Student in an Organized Health Care Education/Training Program; Visit Provider Urology
DX: R31.29 Other microscopic hematuria (principal); Z13.9 Encounter for screening, unspecified
CPT/HCPCS: 99213

== ENCOUNTER → 2024-04-14 11:05 | Outpatient (BNVA) | payer MEDICAID, SELFPAY | PROVIDERS: PCP Student in an Organized Health Care Education/Training Program; Visit Provider Urology | DX: R31.29 Other microscopic hematuria (principal) | CPT/HCPCS: 81003; 99212 ==

== ENCOUNTER 2024-04-20 09:57 | Outpatient (REF) | payer MEDICAID, SELFPAY ==
--- NOTE | ~2024-04-20 | CT_ITS ---
EXAMINATION: CT UROGRAM - CT ABDOMEN AND PELVIS WITHOUT AND WITH CONTRAST CLINICAL INFORMATION: Gross hematuria. COMPARISON: CT abdomen and pelvis 03/03/2022. TECHNIQUE: Multidetector volumetric imaging was performed through the abdomen prior to IV contrast. The abdomen and pelvis were then reexamined after the administration of 85 mL Optiray 350 intravenous contrast. Additional 2-D coronal and sagittal reformatted images and axial 3-D maximum intensity projection MIP images are generated on the CT workstation. This CT examination was performed using dose optimization techniques as appropriate, variously including the following: *Automated exposure control *Adjustment of mA and/or kV according to patient size (this includes techniques or standardized protocols for targeted exams where dose is matched to indication/reason for exam; i.e. extremities or head) *Use of iterative reconstruction technique DLP: 715 mGy-cm UROGRAPHIC FINDINGS: Noncontrast imaging through the kidneys ureters and bladder show no urinary tract calculi. After the injection of contrast, there was prompt excretion bilaterally with symmetric CT nephrograms. The right kidney measures 10.9 cm and the left kidney measures 10.9 cm in maximal length. The renal collecting systems appear normal without hydronephrosis. No filling defects or mucosal abnormalities are seen. A benign left upper pole 1.4 cm Bosniak class I renal cyst is noted which requires no additional imaging or follow up. No solid renal masses are seen. There is no hydronephrosis. Both ureters appear normal. There is some irregularity at the bladder base on the right (see saved leos images). The bladder is otherwise unremarkable. NON-UROGRAPHIC FINDINGS: Lung Bases: The visualized lung bases are unremarkable. Liver, Gallbladder and Biliary Tree: The liver is enlarged at 18.7 cm in maximal cephalocaudad dimension. Attenuation on noncontrast imaging is normal. No focal hepatic lesion or biliary ductal dilatation is present. The gallbladder is unremarkable with no evidence of radiopaque gallstones, gallbladder wall thickening, or obvious pericholecystic inflammatory changes. Pancreas: Unremarkable. Previously seen streaky changes around the pancreatic tail at the time of the 03/03/2022 CT scan are no longer present. Spleen: Unremarkable. Adrenal Glands: Unremarkable. Gastrointestinal Tract: The small and large bowel is unremarkable. The appendix is unremarkable. Abdominal Wall: No significant hernia is appreciated. Lymph Nodes: No retroperitoneal lymphadenopathy. Vascular: Unremarkable. Pelvic Viscera: The retroverted uterus and adnexa are unremarkable. Osseous Structures: Unremarkable. CT/CT urogram IMPRESSION: 1. There is some irregularity at the bladder base on the right. This could be secondary to mixing of contrast; however, an occult mucosal abnormality cannot be excluded. Given the history of gross hematuria, cystoscopy is recommended for further evaluation. The kidneys and upper tracts appear unremarkable. 2. Incidental note made of mild hepatomegaly and other findings described above. Electronically signed by: José Ruelas MD 04/21/2024 11:12 AM [facility] [place]
[2024-04-20] MEDS: iohexoL 350 MG/ML 100 ML INFUS..BTL 85 ML IV (11:44)
== END 2024-04-20 09:58 | disposition home or self-care (01) ==
LOC: HO.CT 09:57
PROVIDERS: PCP Student in an Organized Health Care Education/Training Program; Visit Provider Nurse Practitioner Family
DX: R31.0 Gross hematuria (principal); R31.29 Other microscopic hematuria; F17.200 Nicotine dependence, unspecified, uncomplicated
CPT/HCPCS: 74178; Q9967

== ENCOUNTER 2024-04-25 10:18 | Outpatient (REF) | payer MEDICAID, SELFPAY ==
[2024-04-25 11:30] LABS: Hematocrit 40.9 % (37.0-47.0); Hemoglobin 13.7 g/dl (12.0-16.0); Mean Corpuscular HGB Conc 33.5 g/dl (31.0-35.0); Mean Corpuscular Hemoglobin 30.9 pg (27.0-33.0); Mean Corpuscular Volume 92.1 fL (80.0-98.0); Mean Platelet Volume 9.5 fL (9.4-12.3); Platelet Count 313 X10*3/uL (160-400); Red Blood Count 4.44 X10*6/uL (4.20-5.50); Red Cell Distribution Width 12.7 % (11.0-16.0); White Blood Count 6.3 X10*3/uL (4.8-10.8)
[2024-04-26 11:27] LABS: HPV 16,18/45 See PAP report
[2024-05-04 10:43] LABS: C. trachomatis RNA TMA Not Detected (Not Detected); N. gonorrhoeae RNA TMA Not Detected (Not Detected); Trichomonas (NAAT) Not Detected (Not Detected)
== END 2024-04-25 10:19 | disposition home or self-care (01) ==
LOC: HO.HHCL 10:18
PROVIDERS: Visit Provider Advanced Practice Midwife
DX: N95.0 Postmenopausal bleeding (principal); R53.83 Other fatigue; Z11.3 Encounter for screening for infections with a predominantly sexual mode of transmission
CPT/HCPCS: 36415; 84443; 85027; 87491; 87591; 87624; 87661; 88175

== ENCOUNTER 2024-05-10 09:57 | Outpatient (REF) | payer MEDICAID, SELFPAY | END 2024-05-10 09:58 | disposition home or self-care (01) | LOC: HO.MAMMO 09:57 | PROVIDERS: PCP Student in an Organized Health Care Education/Training Program; Visit Provider Student in an Organized Health Care Education/Training Program | DX: Z12.31 Encounter for screening mammogram for malignant neoplasm of breast (principal) | CPT/HCPCS: 77063; 77067 ==

== ENCOUNTER → 2024-05-10 10:00 | Outpatient (BNV) | payer MEDICAID, SELFPAY | PROVIDERS: PCP Student in an Organized Health Care Education/Training Program; Visit Provider Internal Medicine | DX: Z12.31 Encounter for screening mammogram for malignant neoplasm of breast (principal) | CPT/HCPCS: 77063; 77067 ==

== ENCOUNTER 2024-10-13 09:56 | Outpatient (REF) | payer MEDICAID, SELFPAY ==
--- OUTSIDE RECORDS SUMMARY | 2024-10-13 11:03 | XMS_ITS | Clinical Summary ---
Author Organization [employer] Address 75 [facility] 7t [place] [address] Care Team Providers Care Block Hacker Name Role Phone Karlene Puentes MD Primary [...] Description 09/22/2024 1:00 PM EDT Office Visit [facility] [address] [place] [address] Marysol Palumbo MD Opioid type dependence, continuous (CMS/HCC) (Primary Dx); Tobacco use disorder 09/22/2024 Travel 09/20/2024 Orders Only [facility] [address] [place] [address] Rani Mcduffie 09/09/2024 Refill [facility] [address] [place] [address] Marysol Palumbo MD Uncomplicated opioid dependence (CMS/HCC) 09/01/2024 Refill [facility] [address] [place] [address] Avis Browning MD 08/05/2024 Population Health Risk Score [facility] ([facility] Department [address] [place] [id number] Provider, Population Health Generic 07/28/2024 1:00 PM EST Office Visit [facility] [address] [place] [address] Marysol Palumbo MD Uncomplicated opioid dependence (CMS/HCC) (Primary Dx); Tobacco use disorder 07/28/2024 Travel 07/19/2024 Refill [facility] [address] [place] [address] Marysol Palumbo MD Uncomplicated opioid dependence (CMS/HCC) [...] Description 11/17/2024 1:15 PM EDT Office Visit [facility] [address] [place] [address] Marysol Palumbo MD [address] [place], [place] [phone] Health Maintenance Due Date Last Done Comments [...] EST Narrative 05/20/2024 11:45 AM EST ? [facility] ? [address] ?[place] [address] ? Mammography Report ? Signed ? Patient: Petta,Ashley E ?MR#: [id number] ?? 103 ? : 1975 ?Acct:[id number] ? Age/Sex: 49 / F ?ADM Date: 12/17/24 ? Loc: HO.MAMMO ? Attending Dr: Karlene Julian MD ? Ordering Physician: Karlene Puentes MD ?Re ?? sults: 1Negative ? Date of Service: 05/10/24 ?Follow Up: 1 Year From Orig ?? inal Mammogram ? Procedure(s): MM tomosynthesis screening BI ?? Accession Number(s): [id number] ? cc: Karlene Puentes MD ? EXAMINATION: [...] DD/ 1010 ? TD/TT: 05/10/24 1010 ? Mechanical Integrity Engineer: ? Procedure Note Meryl, Image - 05/20/2024 [facility] [address] [place], [place] [address] Mammography Report Signed Patient: Ashley Walker EMR#: [id number] 103 : 1975Acct:[id number] Age/Sex: 49 / FADM Date: 05/10/24 Loc: HO.MAMMO Attending Dr: Karlene Julian MD Ordering Physician: Karlene Puentes sults: 1Negative Date of Service: 05/10/24Follow Up: 1 Year From Orig inal Mammogram Procedure(s): MM tomosynthesis screening BI Accession Number(s): [id number] cc: Karlene Puentes MD EXAMINATION: MM SCREENING [...] 05/20/24 1142 DD/ 1010 TD/TT: 05/10/24 1010 Mechanical Integrity Engineer: us Karlene Julian MD IMG BI PROCEDURES Final Result * Pap Smear (04/25/2024 9:50 AM EST) Swab Cervix uteri structure / Unknown 04/25/2024 9:50 AM EST 04/26/2024 11:00 AM EST Narrative [facility] - 04/29/2024 12:44 PM EST ----- ------- Name: AaronAshley Emiliano ?Age/Sex: 49/F ? : 1975 Unit#: [id number] ?? Attend Dr: BRIEN ANTHONY CNM ?Re04/25/24 ?Status: DEP REF ? Location: [facility] ? Disch: ? ----- ------- SPEC : [id number] ?RECD: 04/26/24-1099 ? STATUS: ??SOUT ? REQ NUM: [id number] ? LULU: 04/25/24-949 ? SUBM DR: BRIEN [...] CN LAB CYTOLOGY ORDERABLES F inal Result [facility] [address] [place] [address] [phone] * HPV mRNA E6/E7 w/Reflex to HPV Genotypes 16, 18/45 (04/25/2024 12:00 AM EST) Historical Provider MD LAB CYTOLOGY ORDERABLES F inal Result * (ABNORMAL) Lipid Panel, Standard (11/13/2022 9:59 AM EDT) Cholesterol, Total 294(H) <200 mg/dL [facility] HDL Cholesterol 53 > OR = 50 mg/dL [facility] Triglycerides 154(H) <150 mg/dL [facility] LDL Cholesterol 209(H) mg/dL (calc) [facility] Comment: LDL-C levels > or = 190 [...] about testing for familial hypercholesterolemia, please call [facility] Client Services at [phone]. Roberto T, et al. J National Lipid Association Recommendations for Patient-Centered Management of Dyslipidemia: Part 1 Journal of Clinical Lipidology 2015;9(2), 129-169. Yemi Arce. et al. (2014). Homozygous familial hypercholesterolaemia: new insights and guidance for clinicians to improve detection and clinical management. Heart Journal, 35(32), 1035-8328. Reference range: <100 Desirable range <100 mg/dL for primary prevention; ?? <70 mg/dL for patients with CHD or diabetic patients with > or = 2 CHD risk factors. LDL-C is now calculated using the Willard-Mallory calculation, which is a validated novel method providing better accuracy than the Friedewald equation in the estimation of LDL-C. Willard LESTER et al. SILVINO. 2013;310(19): 8988-5224 (http://education.ReliantHeart/faq/RBV909) Chol/HDLC Ratio 5.5(H) <5.0 (calc) [facility] Non-HDL Cholesterol 241(H) <130 mg/dL (calc) [facility] Comment: Non-HDL level > or = 220 [...] PM EDT FASTING:YES FASTING: YES Hailee Avalos [facility] LAB BLOOD ORDERABLES Final Result [facility] [[email or web address]] [address], [place] [address] [facility] [address] [place] [address] * (ABNORMAL) HEPATITIS C AB W/REFL TO [...] LABS F inal Result Performing Organization Address [facility]/ZIP Co de Phone Number [facility] [address] * HIV 1/2 ANTIGEN/ANTIBODY,FOURTH GENERATION W/RFL [...] ? For additional information please refer to http://education.E[employer]/faq/YQC087 (This link is being provided for informational/ educational purposes only.) ? The performance of this assay has not been clinically validated in patients less than 2 years old. ?? 01/16/2021 3:16 PM EDT Ashley Guo PUBLIC HEALTH ADMINISTRATOR LAB BLOOD ORDERABLES Final Resu lt Performing Organization Address [facility]/ZIP Co de Phone Number [facility] [address] from Last 3 Months or Most Recently Relevant to Health Maintenance Insurance [facility] STAND ADULT Care Teams Block Hacker Relationship Specialty Start Date End Date Karlene Puentes MD [address] [place] [address] [place] PCP - General Internal Medicine 03/03/23
--- OUTSIDE RECORDS SUMMARY | 2024-10-13 11:03 | XMS_ITS | Encounter Summary ---
Author Organization [employer] Address 75 [facility] 7t [place] [address] Care Team Providers Care Pm Head Cook Name Role Phone Hailee Avalos [facility] Primary Care Provider +1- [phone] Karlene Puentes MD Primary Care Pro vider Encounter Details Date Type Department Care Team ([facility] Contact Info) Description 07/21/2022 Orders Only [facility] ADULT [facility] [address] [place] [address] Ashley Ricks, DDS [address] [place] [address] Abscessed tooth (Primary Dx) Social History Tobacco [...] Upcoming Encounters Date Type Department Care Team ([facility] Contact Info) Description 11/17/2024 1:15 PM EDT Office Visit [facility] [address] [place] [address] Marysol Palumbo MD [address] [place], [place] [phone] documented as of this encounter Visit Diagnoses Diagnosis Abscessed tooth- Primary Periapical abscess without sinus documented in this encounter Care Teams Pm Head Cook Relationship Specialty Start Date End Date Hailee Avalos FNP PCP - General Family Medicine 01/15/22 03/02/23 Karlene Puentes MD [address] [place] [address] PCP - General Internal Medicine 03/03/23 documented as of this encounter
--- OUTSIDE RECORDS SUMMARY | 2024-10-13 11:03 | XMS_ITS | Encounter Summary ---
Author Organization [employer] Address [address] [address] Care Team Providers Care Associate Justice Name Role Phone Hailee Avalos CREDIT ASSISTANT Primary Care Provider +1- [phone] Karlene Puentes MD Primary Care Pro vider Reason for Visit * Reason Onset Date Comments Med Refill 02/25/2023 Encounter Details Date Type Department Care Team (Late st Contact Info) Description 02/25/2023 Refill [facility] [address] [place] [phone] Hailee Avalos FNP [address] [place] [address] Dept [place] [address] Alcohol intake above recommended sensible limits; Mixed [...] Description 11/17/2024 1:15 PM EDT Office Visit [facility] [address] [place] [address] Marysol Palumbo MD [address] [place], [place] [phone] documented as of this encounter Visit Diagnoses Diagnosis Alcohol intake above recommended sensible limits Mixed hyperlipidemia documented in this encounter Additional Health Concerns Assessment Noted Time PHQ-9 Depression Total Score: 13 11/13/ 023 9:45 AM EDT documented as of this encounter Care Teams Associate Justice Relationship Specialty Start Date End Date Hailee Avalos FNP PCP - General Family Medicine 01/15/22 03/02/23 Karlene Puentes MD [address] [place] [address] PCP - General Internal Medicine 03/03/23 documented as of this encounter
--- OUTSIDE RECORDS SUMMARY | 2024-10-13 11:03 | XMS_ITS | Encounter Summary ---
Author Organization [employer] Address 75 [facility] 7t [place] [address] Care Team Providers Care Sharepoint Web Developer Name Role Phone Hailee Avalos [facility] Primary Care Provider +1- [phone] Karlene Puentes MD Primary Care Pro vider Encounter Details Date Type Department Care Team (Late Contact Info) Description 07/03/2022 Abstract [facility] [address] [place] [phone] Provider, MD Charlene Social History Tobacco Use [...] Description 11/17/2024 1:15 PM EDT Office Visit [facility] [address] [place] [phone] Marysol Palumbo MD [address] [place], [place] [phone] documented as of this encounter Procedures Procedure [...] on filedocumented in this encounter Care Teams Sharepoint Web Developer Relationship Specialty Start Date End Date Hailee Avalos FNP PCP - General Family Medicine 01/15/22 03/02/23 Karlene Puentes MD [address] [place] [phone] PCP - General Internal Medicine 03/03/23 documented as of this encounter
--- OUTSIDE RECORDS SUMMARY | 2024-10-13 11:03 | XMS_ITS | Encounter Summary ---
Author Organization [employer] Address 75 [facility] 7 [place] [address] Care Team Providers Care Egg Worker Name Role Phone Karlene Puentes MD Primary Care Pro vider Reason for Visit * Reason Onset Date Comments Med Refill 07/21/2023 Encounter Details Date Type Department Care Team (Late st Contact Info) Description 07/21/2023 Refill [facility] [address] [place] [address] Karlene Puentes MD [address] [place], [place] [phone] Social History Tobacco Use Types Packs/Day Years [...] Description 11/17/2024 1:15 PM EDT Office Visit [facility] [address] [place] [address] [phone] Marysol Palumbo MD [address] [place] [address] [phone] documented as of this encounter Visit Diagnoses Not on filedocumented in this encounter Additional Health Concerns Assessment Noted Time PHQ-9 Depression Total Score: 13 023 9:45 AM EDT documented as of this encounter Care Teams Egg Worker Relationship Specialty Start Date End Date Karlene Puentes MD [address] [place] [address] [phone] PCP - General Internal Medicine 03/03/23 documented as of this encounter
--- OUTSIDE RECORDS SUMMARY | 2024-10-13 11:03 | XMS_ITS | Encounter Summary ---
Author Organization [employer] Address [address] [facility] [address] [place] [address] Care Team Providers Care Marketing Assistant Retail Division Name Role Phone Karlene Puentes MD Primary Care Pro vider Encounter Details Date Type Department Care Team (Late st Contact Info) Description 09/20/2024 Orders Only [facility] [address] [place], [place] [phone] Rani Mcduffie Social History Tobacco Use Types [...] EDT Office Visit [facility] [address] [place] [address] Marysol Palumbo MD [address] [place] [address] documented as of this encounter Procedures Procedure [...] documented as of this encounter Care Teams Marketing Assistant Retail Division Relationship Specialty Start Date End Date Karlene Puentes MD [address] [place] [address] PCP - General Internal Medicine 03/03/23 documented as of this encounter
--- OUTSIDE RECORDS SUMMARY | 2024-10-13 11:03 | XMS_ITS | Encounter Summary ---
Author Organization [employer] Address 75 [facility] 7t [place] [address] Care Team Providers Care Colorer Name Role Phone Hailee Avalos [facility] Primary Care Provider +1- [phone] Karlene Puentes MD Primary Care Pro vider Reason for Visit * Reason Onset Date Comments medication 07/21/2022 Encounter Details Date Type Department Care Team (Late st Contact Info) Description 07/21/2022 Telephone [facility] D[facility] [address] [place] [address] Ashley Ricks DDS [address] [place] [address] medication Social History Tobacco Use Types Packs/Day [...] Description 11/17/2024 1:15 PM EDT Office Visit [facility] [address] [place] [phone] Marysol Palumbo MD [address] [place] [address] documented as of this encounter Visit Diagnoses Not on filedocumented in this encounter Care Teams Colorer Relationship Specialty Start Date End Date Hailee Avalos FNP PCP - General Family Medicine 01/15/22 03/02/23 Karlene Puentes MD [address] [place] [phone] PCP - General Internal Medicine 03/03/23 documented as of this encounter
--- OUTSIDE RECORDS SUMMARY | 2024-10-13 11:03 | XMS_ITS | Encounter Summary ---
Author Organization [employer] Address 75 [facility] 7t [place] [address] Care Team Providers Care Special Education Tutor Name Role Phone Karlene Puentes MD Primary Care Pro vider Reason for Visit * Reason Comments Med Refill Encounter Details Date Type Department Care Team ([facility] st Contact Info) Description 07/29/2023 Refill [facility] [address] [place] [address] Panchito Romero MD [address] [place], [place] [phone] Alcohol intake above recommended sensible limits Social [...] Description 11/17/2024 1:15 PM EDT Office Visit [facility] [address] [place] [address] [phone] Marysol Palumbo MD [address] [place] [address] [phone] documented as of this encounter Visit Diagnoses Diagnosis Alcohol intake above recommended sensible limits documented in this encounter Additional Health Concerns Assessment Noted Time PHQ-9 Depression Total Score: 13 023 9:45 AM EDT documented as of this encounter Care Teams Special Education Tutor Relationship Specialty Start Date End Date Karlene Puentes MD [address] [place] [address] [phone] PCP - General Internal Medicine 03/03/23 documented as of this encounter
[2024-10-13 16:05] LABS: Urine Cytology See Pathology rpt
== END 2024-10-13 09:57 | disposition home or self-care (01) ==
LOC: HO.LNP 09:56
PROVIDERS: PCP Student in an Organized Health Care Education/Training Program; Visit Provider Nurse Practitioner Family
DX: R31.29 Other microscopic hematuria (principal); F17.200 Nicotine dependence, unspecified, uncomplicated
CPT/HCPCS: 81003; 88112; 99212

== ENCOUNTER 2024-10-13 09:56 | Outpatient (AMB) | payer MEDICAID, SELFPAY ==
--- OUTSIDE RECORDS SUMMARY | 2024-10-13 10:17 | XMS_ITS | Encounter Summary ---
Author Organization [employer] Address [address] [place] [address] Care Team Providers Care Ironworker Wire Fence Erector Name Role Phone Karlene Puentes MD Primary Care Pro vider Encounter Details Date Type Department Care Team (Late st Contact Info) Description 09/20/2024 Orders Only [facility] [address] [place], [place] [id number] Rani Mcduffie Social History Tobacco Use Types Packs/Day Years Used Date Smoking Tobacco: Every Day Cigarettes Passive Smoke Exposure: Current Smokeless Tobacco: Never Alcohol Use Standard Drinks/Week Comments Never 0 (1 standard drink = 0.6 oz pur e alcohol) Depression Answer Date Recorded Patient Health Questionnaire-9 Score 0 07/28/2024 Patient Health Questionnaire-9 Score 0 07/28/2024 Last PHQ-9: Questionnaire Data Not on file 0 07/28/2024 Housing Stability Answer Date Recorded What is your housing situation today? I have jose sotelo 09/24/[address] you li ve. Do you have problems with any of the following? None of the above 09/24/2023 Food Insecurity Answer Date Recorded Within the past 12 months, y ou worried that your food would run out before you got money to buy more: Never True 09/24/2023 Within the past 12 months,th e food you bought just didn't last and you didn't have enough money to get more: Never True 06/2023 Transportation Answer Date Recorded In the past 12 months, has l ack of transportation kept you from medical appts, meetings, work or from getting things needed for daily living? No 09/24/2023 Utilities Answer Date Recorded In the past 12 months, has t he electric, gas, oil or water company threatened to shut off services in your home? No 09/24/2023 Depression Answer Date Recorded Patient Health Questionnaire-2 Score 0 07/28/2024 Internet Access Answer Date Recorded Internet Access Q1 No 07/28/2024 Internet Access Q2 Not on file 07/28/2024 Comments No Sex and Gender Information Value Date Recorded Sex Assigned at Female 03/24/2022 10:15 AM EDT Legal Sex Female 10:15 AM EDT Gender Identity Female 03/24/2022 10:15 AM EDT Sexual Orientation Straight 03/24/2022 10 :15 AM EDT documented as of this encounter Plan of Treatment Upcoming Encounters Date Type Department Care Team (Late st Contact Info) Description 11/17/2024 1:15 PM EDT Office Visit [facility] [address] [place] [address] Marysol Palumbo MD [address] [place] [address] documented as of this encounter Procedures Procedure Name Priority Date/Time Associated Diagnosis Comments HPV MRNA E6/E7 REFLEX TO HPV 16, 18/45 Routine 04/25/2024 12:00 AM EST documented in this encounter Results * HPV mRNA E6/E7 w/Reflex to HPV Genotypes 16, 18/45 (04/25/2024 12:00 AM EST) us Historical Provider LAB CYTOLOGY ORDERABLES F inal Result documented in this encounter Visit Diagnoses Not on filedocumented in this encounter Additional Health Concerns Assessment Noted Time PHQ-9 Depression Total Score: 0 07/29/19 25 1:16 PM EST documented as of this encounter Care Teams Ironworker Wire Fence Erector Relationship Specialty Start Date End Date Karlene Puentes MD [address] [place] [address] PCP - General Internal Medicine 03/03/23 documented as of this encounter
--- OUTSIDE RECORDS SUMMARY | 2024-10-13 10:17 | XMS_ITS | Clinical Summary ---
Author Organization [employer] Address [address] [facility] 7[address] [place] [address] Care Team Providers Care Car Installations Supervisor Name Role Phone Karlene Puentes MD Primary Care Pro vider Allergies No known active allergies Medications busPIRone (Buspar) 7.5 MG tabletIndications: Anxiety Take 1 tablet (7.5 mg) by mouth every 8 (eight) hours. 90 tablet 3 3 Active ondansetron ODT (Zofran-ODT) 4 MG disintegrating tabletIndications: Alcohol intake above recommended sensible limits Take 2 tablets (8 mg) by mouth every 12 (twelve) hours if needed for nausea or vomiting. 120 tablet 2 3 Active naloxone (Narcan) 4 mg/0.1 mL nasal sprayIndications:U ncomplicated opioid dependence (CMS/HCC) Administer 1 spray (4 mg) into affected nostril(s) if needed for opioid reversal. 2 each 1 3 Active fluticasone (Flonase Allergy Relief) 50 MCG/ACT nasal sprayIndications:S easonal allergic rhinitis, unspecified trigger Administer 2 sprays into each nostril in the morning. 16 g 3 3 Active Melatonin 5 MG capsuleIndications :Alcohol intake above recommended sensible limits Take 1 capsule by mouth if needed at bedtime (insomnia). 90 capsule 3 3 Active folic acid (Folvite) 1 MG tabletIndications: Alcohol intake above recommended sensible limits Take 1 tablet (1 mg) by mouth in the morning. 90 tablet 3 3 Active thiamine (Vitamin B-1) 100 MG tabletIndications: Alcohol intake above recommended sensible limits Take 1 tablet (100 mg) by mouth in the morning. 90 tablet 3 3 Active rosuvastatin (Crestor) 10 MG tabletIndications: Mixed hyperlipidemia Take 1 tablet (10 mg) by mouth in the morning. 30 tablet 11 3 Active nicotine polacrilex (Nicorette) 4 MG gum Chew 1 each (4 mg) if needed for smoking cessation. 100 each 3 4 Active ferrous gluconate (Fergon) 324 (38 Fe) MG tabletIndications: Iron deficiency anemia, unspecified iron deficiency anemia type Take 1 tablet (324 mg) by mouth every other day. 45 tablet 1 4 Active gabapentin (Neurontin) 300 MG capsuleIndications :Uncomplicated opioid dependence (CMS/HCC) Take 1 capsule by mouth three times daily 90 capsule 4 Active Multiple Vitamin (Multi-Vitamin) tabletIndications: Alcohol intake above recommended sensible limits Take 1 tablet by mouth Once per day. 90 tablet 4 Active cetirizine (ZyrTEC) 10 MG tabletIndications: Seasonal allergic rhinitis, unspecified trigger Take 1 tablet (10 mg) by mouth Once per day. 90 tablet 4 Active magnesium oxide 400 MG capsule Take 1 capsule (400 mg) by mouth if needed at bedtime (insomnia). 28 capsule 3 4 Active varenicline (Chantix) 0.5 MG tablet Take 1 tablet (0.5 mg) by mouth 2 times daily. Take 0.5 mg once daily on days 1-3, take 0.5 mg twice daily on days 4-6, then take 1.0 mg twice daily for the rest of the month. Take with full glass of water. 60 tablet 5 Active varenicline (Chantix) 1 MG tablet Take 1 tablet (1 mg) by mouth 2 times daily. Take with full glass of water. 5 tablet 1 5 Active venlafaxine (Effexor) 75 MG tablet TAKE 1 TABLET BY MOUTH EVERY DAY IN THE MORNING 30 tablet 2 5 Active Buprenorphine HCl-Naloxone HCl (Suboxone) 8-2 MG SL filmIndications:Un complicated opioid dependence (CMS/HCC) Place 2 Film under the tongue Once per day. 56 Film 1 5 025 Active Active Problems Problem Noted Date Diagnosed Date Hot flashes 11/13/2022 Overview (11/13/2022): Treating with Effexor 37.5 mg daily Stable Assessment & Plan (11/13/2022 10:59 PM EDT): Sx improved w/ effexor Followup 3 months with new PCP Abscess, dental 11/07/2022 Health care maintenance 09/07/2022 Overview (11/13/2022): IZ: Td up to date 03/20/22 HIV: Nonreactive 01/16/21 Hep C: Nonreactive 01/16/21 Hep B: Reactive 01/16/21 Pap: 04/17/21 NILM, HPV neg Mammo: 04/30/22 Birads 3-Diagnostic mammography at time of next annual exam, due in 12 months with targeted right breast ultrasound at same appointment Tobacco dependence syndrome 04/25/2022 Alcohol intake above recommended sensible limits 03/06/2022 Overview (11/13/2022): Treating with acamprosate 666mg TID No ETOH intake since 03/04/22 Treating vit deficiencies w/ folic acid 1mg daily; MV 1 tab daily; and thiamine B1 100 mg daily Assessment & Plan (11/13/2022 10:56 PM EDT): Refill vitamin supplements Care managed by Dr. 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 Overview (11/13/2022): Treating with acamprosate 666mg TID No ETOH intake since 03/04/22 Treating vit deficiencies w/ folic acid 1mg daily; MV 1 tab daily; and thiamine B1 100 mg daily Assessment & Plan (11/13/2022 10:57 PM EDT): Followup PRN Breast lump 04/25/2021 Anxiety 01/16/2021 Overview (11/13/2022): PHQ 9 score is 13 Treating with Prozac 40 mg daily & Buspar 7.5 mg every 8 hours Therapy pending Assessment & Plan (11/13/2022 11:03 PM EDT): Continue psych meds Will refer to outpatient again Followup 3 months with new PCP Depressive disorder 01/16/2021 Overview (11/13/2022): PHQ 9 score is 13 Treating with Prozac 40 mg daily & Buspar 7.5 mg every 8 hours Therapy pending Assessment & Plan (11/13/2022 11:03 PM EDT): Continue psych meds Will refer to outpatient again Followup 3 months with new PCP Opioid dependence 01/16/2021 Overview (11/13/2022): Treating with Suboxone Stable Assessment & Plan (11/13/2022 10:57 PM EDT): Followup 3 months with new PCP Posttraumatic stress disorder 01/16/2021 Overview (11/13/2022): PHQ 9 score is 13 Treating with Prozac 40 mg daily & Buspar 7.5 mg every 8 hours Therapy pending Assessment & Plan (11/13/2022 11:03 PM EDT): Continue psych meds Will refer to outpatient again Followup 3 months with new PCP Encounters Date Type Department Care Team Description 09/22/2024 1:00 PM EDT Office Visit [facility] MEDIC[facility] [address] [place] [address] Marysol Palumbo MD Opioid type dependence, continuous (CMS/HCC) (Primary Dx); Tobacco use disorder 09/22/2024 Travel 09/20/2024 Orders Only [facility] & PEDS [address] [place] [address] Rani Mcduffie 09/09/2024 Refill [facility] [address] [place] [address] Marysol Palumbo MD Uncomplicated opioid dependence (CMS/HCC) 09/01/2024 Refill [facility] MED[facility] [address] [place] [address] Avis Browning MD 08/05/2024 Population Health Risk Score Community [facility] ([facility]) Department [address] [place] [phone] Provider, Population Health Generic 07/28/2024 1:00 PM EST Office Visit [facility] MED[facility] [address] [place] [address] Marysol Palumbo MD Uncomplicated opioid dependence (CMS/HCC) (Primary Dx); Tobacco use disorder 07/28/2024 Travel 07/19/2024 Refill [facility] MED[facility] [address] [place] [address] Marysol Palumbo MD Uncomplicated opioid dependence (CMS/HCC) from Last 3 Months Immunizations Immunization Administration Dates Next Due Influenza injectable quadrivalent preservative f ree 03/20/2022,02/22/2020 Pfizer Covid-19 Vaccine 12+ 07/31/2020, 1 TD (adult), 2 Lf tetanus tox oid, preservative free, adsorbed 03/20/2022 Tdap 11/05/2010 Social History Tobacco Use Types Packs/Day Years Used Date Smoking Tobacco: Every Day Cigarettes Passive Smoke Exposure: Current Smokeless Tobacco: Never Tobacco Cessation:Ready to Q uit: Not Asked; Counseling Given: Not Answered Alcohol Use Standard Drinks/Week Comments Never 0 [...] Orientation Straight 03/24/2022 10 :15 AM EDT Last Filed Vital Signs Vital Sign Reading Time Taken Comments Blood Pressure 134/87 04/25/2024 9:43 AM EST Pulse 72 04/25/2024 9:43 AM EST Temperature 37.1 ??C (98.8 ??F) 04/25/2024 9:43 AM ES T Respiratory Rate 16 04/25/2024 9:43 AM EST Oxygen Saturation 99% 04/25/2024 9:43 AM EST Inhaled Oxygen Concentration - - Weight 77.7 kg (171 lb 3.2 oz) 04/25/2024 9:43 A M EST Height 157.5 cm (5' 2 ) 04/25/2024 9:43 AM EST Body Mass Index 31.31 04/25/2024 9:43 AM EST Plan of Treatment Upcoming Encounters Date Type Department Care Team (Late st Contact Info) Description 11/17/2024 1:15 PM EDT Office Visit [facility] [address] [place] [address] Marysol Palumbo MD [address] [place], [place] [phone] Health Maintenance Due Date Last Done Comments CT Colonography 1975 Colonoscopy 1975 Colorectal Cancer Screening 1975 Dental Oral Exam 1975 Dental Prophylaxis 1975 Dental X-Ray: Full Mouth 1975 FIT DNA/Cologuard 1975 FIT 1975 FOBT 1975 Sigmoidoscopy 1975 Disability Screening 1975 Family Planning (PISQ) 1991 Hepatitis B Vaccines (1 of 3 - 19+ 3-dose series) 1995 Pneumococcal Vaccine: Pediatrics (0 to 5 Years) and At-Risk Patients (6 to 49) Years) (1 of 2 - PCV) 1995 Dental X-Ray: Bitewings 07/09/2023 07/08/2022 COVID-19 Vaccine ( season) 2024 05/14/2022, 07/31/2020, 07/10/2020 Influenza Vaccine (#1) 2024 03/20/2022, 2019 Mammogram 05/10/2025 05/10/2024, 12/2022, 05/01/2023, Additional history exists Alcohol/Substance Use Screening 07/28/2025 07/28/2024 Depression Screening 07/28/2025 07/28/2024, 07/29/19 25 SDOH Screening 07/28/2025 07/28/2024 Tobacco Screening 07/28/2025 07/28/2024 Zoster Vaccines (1 of 2) 2026 Lipid Panel 11/14/2027 11/13/2022, 01/16/2021 Cervical Cancer Screening 04/25/2029 HPV/Cotest 04/25/2029 04/25/2024, 04/17/2021 Pap Smear 04/25/2029 04/25/2024, 04/17/2021 DTaP/Tdap/Td Vaccines (3 - Td or Tdap) 03/20/2032 03/20/2022, 11/05/2010 RSV Patients and Patients Aged 60 years or older (1 - 1-dose 75+ series) 2051 HIV Screening Completed 01/16/2021 Hepatitis C Screening Completed 01/16/2021 HIB Vaccines Aged Out No longer eligi ble based on patient's age to complete this topic HPV Vaccines Aged Out No longer eligi ble based on patient's age to complete this topic Hepatitis A Vaccines Aged Out No long er eligible based on patient's age to complete this topic IPV Vaccines Aged Out No longer eligi ble based on patient's age to complete this topic Meningococcal B Vaccine Aged Out No l onger eligible based on patient's age to complete this topic Meningococcal Vaccine Aged Out No dee dakota eligible based on patient's age to complete this topic RSV under 20 months Aged Out No longe r eligible based on patient's age to complete this topic Rotavirus Vaccines Aged Out No longer eligible based on patient's age to complete this topic Procedures Procedure Name Priority Date/Time Associated Diagnosis Comments POCT LEONOR-14 URINE DRUG SCREEN Routine 09/22/2024 1:12 PM EDT Opioid type dependence, continuous (CMS/HCC) POCT LEONOR-14 URINE DRUG SCREEN Routine 07/28/2024 1:16 PM EST Uncomplicated opioid dependence (CMS/HCC) BI MAMMOGRAM SCREENING TOMOSYNTHESIS BILATERAL Routine 05/10/2024 10:10 AM EST PAP SMEAR Routine 04/25/2024 9:50 AM EST Routine cervical smear Postmenopausal bleeding HPV MRNA E6/E7 REFLEX TO HPV 16, 18/45 Routine 04/25/2024 12:00 AM EST LIPID PANEL, STANDARD Routine 11/13/2022 9:59 AM EDT Health care maintenance BITEWINGS - 2 RADIOGRAPHIC IMAGES Routine 07/08/2022 11:30 AM EST Abscessed tooth ZZZ HISTORICAL HEPATITIS C AB W/REFL TO HCV RNA, QN, PCR Routine 01/16/2021 3:16 PM EDT HIV 1/2 ANTIGEN/ANTIBODY, FOURTH GENERATION W/RFL Routine 01/16/2021 3:16 PM EDT from Last 3 Months or Most Recently Relevant to Health Maintenance Results * POCT LEONOR-14 Urine Drug Screen (09/22/2024 1:12 PM EDT) Only the most recent of2 resultswithin the time period is included. THC Positive Cocaine Screen, Urine Negative Opiate Screen, Urine Negative Methamphetamine Screen Urine Negative Amphetamine Screen, Urine Negative Benzodiazepines Screen, Urine Negative Barbiturate Screen, Urine Negative Methadone Screen, Urine Negative Buprenophine Screen, Urine Positive TCA, Urine Negative MDMA Urine Negative ng/mL Oxycodone Screen, Urine Negative Phencyclidine (PCP), Urine Negative Fentanyl, Urine Negative Urine Urine specimen obtained by clean catch procedure / Unknown 09/22/2024 1:12 PM EDT Marysol Palumbo MD POINT OF CARE TEST ENTER/IZABELA T ORDERABLES Final Result * BI Mammogram Screening Tomosynthesis Bilateral (05/10/2024 10:10 AM EST) Anatomical Region Laterality Modality Breast Bilateral Mammography 05/10/2024 10:1 0 AM EST Narrative 05/20/2024 11:45 AM EST ? [facility] ? [address] ?[place] [address] ? Mammography Report ? Signed ? Patient: Petta,Ashley E ?MR#: [id number] ?? 103 ? : 1975 ?Acct:[id number] ? Age/Sex: 49 / F ?ADM Date: 12/17/24 ? Loc: HO.MAMMO ? Attending Dr: Karlene Julian MD ? Ordering Physician: Karlene Puentes MD ?Re ?? sults: 1Negative ? Date of Service: 05/10/24 ?Follow Up: 1 Year From Orig ?? inal Mammogram ? Procedure(s): MM tomosynthesis screening BI ?? Accession Number(s): [id number] ? cc: Karlene Puentes MD ? EXAMINATION: ?? MM SCREENING DIGITAL BREAST TOMOSYNTHESIS, BILATERAL ? CLINICAL INFORMATION: ? Screening. Asymptomatic. ? COMPARISON: ?? Mammography: Comparison is made with available priors ? TECHNIQUE: ?? Digital breast mammography with tomosynthesis is performed in both the ?? craniocaudal and mediolateral oblique views along with computer-aided ?? detection (CAD). ? FINDINGS: ?? There are scattered areas of fibroglandular density (ACR BI-RADS breast ?? composition Category b). ? There are no significant masses, abnormal calcifications, or other ?? abnormalities. ? MM/MM tomosynthesis screening BI ?? IMPRESSION: ?? No mammographic evidence of malignancy. ? ASSESSMENT: ? BI-RADS BI-RADS 1 - Negative ? RECOMMENDATION: ?? Routine annual mammography screening. ? 1 year F/U ? This examination should not preclude the clinical evaluation of a ?? suspicious palpable abnormality. ? This patient's information was entered into a reminder system with a ?? target due date for their next mammogram. ? Electronically signed by: ??Carole Wright DO ??05/20/2024 11:42 AM EST ?? RP ? Dictated By: ?Carole Wright DO ? Signed By: ?<Electronically signed by Carole Wright, DO in OV> ? 05/20/24 1142 ? DD/ 1010 ? TD/TT: 05/10/24 1010 ? Snaker Tractor Driver: ? Procedure Note Meryl, Image - 05/20/2024 [facility] [address] [place], [place] [address] Mammography Report Signed Patient: Ashley Walker EMR#: [id number] 103 : 1975Acct:[id number] Age/Sex: 49 / FADM Date: 05/10/24 Loc: HO.MAMMO Attending Dr: Karlene Julian MD Ordering Physician: Karlene Puentes sults: 1Negative Date of Service: 05/10/24Follow Up: 1 Year From Orig inal Mammogram Procedure(s): MM tomosynthesis screening BI Accession Number(s): [id number] cc: Karlene Puentes MD EXAMINATION: MM SCREENING DIGITAL BREAST TOMOSYNTHESIS, BILATERAL CLINICAL INFORMATION: Screening. Asymptomatic. COMPARISON: Mammography: Comparison is made with available priors TECHNIQUE: Digital breast mammography with tomosynthesis is performed in both the craniocaudal and mediolateral oblique views along with computer-aided detection (CAD). FINDINGS: There are scattered areas of fibroglandular density (ACR BI-RADS breast composition Category b). There are no significant masses, abnormal calcifications, or other abnormalities. MM/MM tomosynthesis screening BI IMPRESSION: No mammographic evidence of malignancy. ASSESSMENT: BI-RADS BI-RADS 1 - Negative RECOMMENDATION: Routine annual mammography screening. 1 year F/U This examination should not preclude the clinical evaluation of a suspicious palpable abnormality. This patient's information was entered into a reminder system with a target due date for their next mammogram. Electronically signed by: Carole Wright DO 05/20/2024 11:42 AM EST Dictated By: Carole Wright DO Signed By: <Electronically signed by Carole Wright DO in OV> 05/20/24 1142 DD/ 1010 TD/TT: 05/10/24 1010 Snaker Tractor Driver: us Karlene Julian MD IMG BI PROCEDURES Final Result * Pap Smear (04/25/2024 9:50 AM EST) Swab Cervix uteri structure / Unknown 04/25/2024 9:50 AM EST 04/26/2024 11:00 AM EST Narrative [facility] - 04/29/2024 12:44 PM EST ----- ------- Name: AaronAshley Emiliano ?Age/Sex: 49/F ? : 1975 Unit#: [id number] ?? Attend Dr: BRIEN ANTHONY CNM ?Re04/25/24 ?Status: DEP REF ? Location: [facility] ? Disch: ? ----- ------- SPEC : [id number] ?RECD: 04/26/24-1099 ? STATUS: ??SOUT ? REQ NUM: [id number] ? LULU: 04/25/24-949 ? SUBM DR: BRIEN ANTHONY CNM ? ENTERED: ??04/26/24-1110 ?SP TYPE: Pap Smr ?SUSANNAH DILLON: ? ORDERED: ??Pap Smear ? Interpretation ?? Satisfactory for evaluation. ?? Negative for intraepithelial lesion or malignancy. ? HPV High Risk: ??Negative ? HPV Genotyping 16: ??Negative ?? HPV Genotyping 18: ??Negative ?Clinical Information LMP: Postmenopausal Previous PAP test: 2020, Unknown findings Other history: Postmenopausal bleeding ? Material Received ?? ThinPrep-Cervical ----- ------- Signed (signature on file) FABY Nagel (ASCP) 04/29/24 1244 ? ----- ------- ? END OF REPORT ? Brien Anthony CN LAB CYTOLOGY ORDERABLES F inal Result [facility] [address] [place] [address] [phone] * HPV mRNA E6/E7 w/Reflex to HPV Genotypes 16, 18/45 (04/25/2024 12:00 AM EST) Historical Provider MD LAB CYTOLOGY ORDERABLES F inal Result * (ABNORMAL) Lipid Panel, Standard (11/13/2022 9:59 AM EDT) Cholesterol, Total 294(H) <200 mg/dL [facility] [place] [employer] HDL Cholesterol 53 > OR = 50 mg/dL [facility] [place] [employer] Triglycerides 154(H) <150 mg/dL [facility] [place] [employer] LDL Cholesterol 209(H) mg/dL (calc) [facility] [place] [employer] Comment: LDL-C levels > or = 190 mg/dL may indicate familial hypercholesterolemia (FH). Clinical assessment and measurement of blood lipid levels should be considered for all first degree relatives of patients with an FH diagnosis. LDL Cholesterol (LDL-C) levels > or = 300 mg/dL may indicate homozygous familial hypercholesterolemia (HoFH). Untreated, these extremely high LDL-C levels can result in premature CV events and mortality. Patients should be identified early and provided appropriate interventions to reduce the cumulative LDL-C burden from . For questions about testing for familial hypercholesterolemia, please call [employer] Client Services at 1.289.GENE.INFO. Roberto T, et al. J National Lipid Association Recommendations for Patient-Centered Management of Dyslipidemia: Part 1 Journal of Clinical Lipidology 2015;9(2), 129-169. Yemi Arce. et al. (2014). Homozygous familial hypercholesterolaemia: new insights and guidance for clinicians to improve detection and clinical management. Heart Journal, 35(32), 3261-4151. Reference range: <100 Desirable range <100 mg/dL for primary prevention; ?? <70 mg/dL for patients with CHD or diabetic patients with > or = 2 CHD risk factors. LDL-C is now calculated using the Willard-Mallory calculation, which is a validated novel method providing better accuracy than the Friedewald equation in the estimation of LDL-C. Willard LESTER et al. SILVINO. 2013;310(19): 4991-6091 (http://education.Yooneed.com/faq/FZU022) Chol/HDLC Ratio 5.5(H) <5.0 (calc) [facility] Non-HDL Cholesterol 241(H) <130 mg/dL (calc) [facility] Comment: Non-HDL level > or = 220 is very high and may indicate genetic familial hypercholesterolemia (FH). Clinical assessment and measurement of blood lipid levels should be considered for all first-degree relatives of patients with an FH diagnosis. For patients with diabetes plus 1 major ASCVD risk factor, treating to a non-HDL-C goal of <100 mg/dL (LDL-C of <70 mg/dL) is considered a therapeutic option. Blood Venous blood specimen / Unknown 11/13/2022 9:59 AM EDT 11/13/2022 10:00 AM EDT Narrative [facility] - 11/13/2022 9:00 PM EDT FASTING:YES FASTING: YES Hailee Avalos [facility] LAB BLOOD ORDERABLES Final Result [facility] [address], [place] [address] [facility] [place] [employer] [address] [place] [address] * (ABNORMAL) HEPATITIS C AB W/REFL TO HCV RNA, QN, PCR (01/16/2021 3:16 PM EDT) HEPATITIS C ANTIBODY REACTIVE( A) NON-REACT ALEKSANDRA [facility] INDEX 28.30(H) <1.00 [facility] Comment: ?? Based on this result, the sample will be tested for HCV RNA by a Nucleic Acid Amplification Test (NAAT) to determine if the patient has a current active infection. ?? 01/16/2021 3:16 PM EDT Ashley Guo NP HISTORICAL/NON ORDERABLE LABS F inal Result Performing Organization Address [facility]/ZIP Co de Phone Number [facility] [address] * HIV 1/2 ANTIGEN/ANTIBODY,FOURTH GENERATION W/RFL (01/16/2021 3:16 PM EDT) HIV-1/2 ANTIGEN AND ANTIBODIES, 4TH GENERATION W/ REFLEX NON-REACT ALEKSANDRA NON-REACT ALEKSANDRA [facility] Comment: HIV-1 antigen and HIV-1/HIV-2 antibodies were not detected. There is no laboratory evidence of HIV infection. ?? PLEASE NOTE: This information has been disclosed to you from records whose confidentiality may be protected by state law. ??If your state requires such protection, then the state law prohibits you from making any further disclosure of the information without the specific written consent of the person to whom it pertains, or as otherwise permitted by law. A general authorization for the release of medical or other information is NOT sufficient for this purpose. ? For additional information please refer to http://education.VendRx/faq/CJQ033 (This link is being provided for informational/ educational purposes only.) ? The performance of this assay has not been clinically validated in patients less than 2 years old. ?? 01/16/2021 3:16 PM EDT Ashley Guo POST ANESTHESIA NURSE LAB BLOOD ORDERABLES Final Resu lt Performing Organization Address [facility]/ZIP Co de Phone Number [facility] [address] from Last 3 Months or Most Recently Relevant to Health Maintenance Insurance [facility] C3 HSN FULL DENTAL-[facility] MEDICAID STAND ADULT Care Teams Car Installations Supervisor Relationship Specialty Start Date End Date Karlene Puentes MD [address] [place] [address] [place] PCP - General Internal Medicine 03/03/23
--- OUTSIDE RECORDS SUMMARY | 2024-10-13 10:17 | XMS_ITS | Encounter Summary ---
Author Organization [employer] Address [address] [facility] [address] [place] [address] Care Team Providers Care Special Delivery Clerk Name Role Phone Hailee Avalos [facility] Primary Care Provider [phone] Karlene Puentes MD Primary Care Pro vider Encounter Details Date Type Department Care Team ([facility] Contact Info) Description 07/21/2022 Orders Only [facility] ADULT DENTAL [address] [place] [address] Ashley Ricks, DDS [address] [place] [address] Abscessed tooth (Primary Dx) Social History Tobacco Use Types Packs/Day Years Used Date Smoking Tobacco: Every Day Cigarettes Smokeless Tobacco: Never Comments Unknown Sex and Gender Information Value Date Recorded Sex Assigned at Female 03/24/2022 10:15 AM EDT Legal Sex Female 10:15 AM EDT Gender Identity Female 03/24/2022 10:15 AM EDT Sexual Orientation Straight 03/24/2022 10 :15 AM EDT COVID-19 Exposure Response Date Recorded In the last 10 days, have yo u been in contact with someone who was confirmed or suspected to have Coronavirus/COVID-19? No / Unsure 07/08/2022 11:31 AM EST documented as of this encounter Plan of Treatment Upcoming Encounters Date Type Department Care Team ([facility] Contact Info) Description 11/17/2024 1:15 PM EDT Office Visit [facility] MEDICINE [address] [place] [address] Marysol Palumbo MD [address] [place], [place] [phone] documented as of this encounter Visit Diagnoses Diagnosis Abscessed tooth- Primary Periapical abscess without sinus documented in this encounter Care Teams Special Delivery Clerk Relationship Specialty Start Date End Date Hailee Avalos FNP PCP - General Family Medicine 01/15/22 03/02/23 Karlene Puentes MD [address] [place] [address] PCP - General Internal Medicine 03/03/23 documented as of this encounter
--- OUTSIDE RECORDS SUMMARY | 2024-10-13 10:17 | XMS_ITS | Encounter Summary ---
Author Organization [employer] Address [address] [facility] 7t [place] [address] Care Team Providers Care Filter Tank Tender Helper Name Role Phone Hailee Avalos [facility] Primary Care Provider +1- [phone] Karlene Puentes MD Primary Care Pro vider Reason for Visit * Reason Onset Date Comments medication 07/21/2022 Encounter Details Date Type Department Care Team (Late st Contact Info) Description 07/21/2022 Telephone [facility] [address] [place] [address] Ashley Ricks DDS [address] [place] [address] medication Social History Tobacco Use Types Packs/Day Years [...] AM EST documented as of this encounter Miscellaneous Notes * Telephone Encounter - Ashley Ricks DDS - 07/25/2022 9:58 AM EST Please inform the patient that the abx has been sent. Thanks, Dr. Conn * Telephone Encounter - Sarah Lugo - 07/25/2022 9:12 AM EST Patient called in stating that she picked up pain medication but thought she would also get an antibiotic due to feeling like the abscess is returning. She wanted to confirm if antibiotic can be sentDR * Telephone Encounter - Sarah Lugo - 07/21/2022 11:37 AM EST Patient called in stating that she was seen on 07/08 for ER visit. She stated she had 2 abscesses. Both improved but she states that one of them feels like its coming back. In pain again. Says she's not currently swollen but feels like she can swell. Would like to know if medication can be sent again or does she need to come in. Concerned with storm coming for tomorrow documented in this encounter Plan of Treatment Upcoming Encounters Date Type Department Care Team (Late st Contact Info) Description 11/17/2024 1:15 PM EDT Office Visit [facility] [address] [place] [phone] Marysol Palumbo MD [address] [place] [phone] documented as of this encounter Visit Diagnoses Not on filedocumented in this encounter Care Teams Filter Tank Tender Helper Relationship Specialty Start Date End Date Hailee Avalos FNP PCP - General Family Medicine 01/15/22 03/02/23 Karlene Puentes MD [address] [place] [phone] PCP - General Internal Medicine 03/03/23 documented as of this encounter
--- OUTSIDE RECORDS SUMMARY | 2024-10-13 10:17 | XMS_ITS | Encounter Summary ---
Author Organization [employer] Address [address] [facility] [address] [place] [address] Care Team Providers Care Service Line Bus Cleaner Name Role Phone Karlene Puentes MD Primary Care Pro vider Reason for Visit * Reason Onset Date Comments Med Refill 07/21/2023 Encounter Details Date Type Department Care Team (Late st Contact Info) Description 07/21/2023 Refill [facility] [address] [place] [address] Karlene Puentes MD [address] [place], [place] [phone] Social History Tobacco Use Types Packs/Day Years Used Date Smoking Tobacco: Every Day Cigarettes Passive Smoke Exposure: Current Smokeless Tobacco: Never Depression Answer Date Recorded Patient Health Questionnaire-9 Score 13 11/13/2022 Housing Stability Answer Date Recorded What is your housing situation today? I have jose sotelo 03/09/[address] you li ve. Do you have problems with any of the following? None of the above 03/09/2023 Food Insecurity Answer Date Recorded Within the past 12 months, y ou worried that your food would run out before you got money to buy more: Often true 03/09/2023 Within the past 12 months,th e food you bought just didn't last and you didn't have enough money to get more: Often true Transportation Answer Date Recorded In the past 12 months, has l ack of transportation kept you from medical appts, meetings, work or from getting things needed for daily living? No 03/09/2023 Utilities Answer Date Recorded In the past 12 months, has t he electric, gas, oil or water company threatened to shut off services in your home? No 03/09/2023 Depression Answer Date Recorded Patient Health Questionnaire-2 Score 1 11/13/2022 Comments Unknown Sex and Gender Information Value [...] Description 11/17/2024 1:15 PM EDT Office Visit [facility] [address] [place] [address] [phone] Marysol Palumbo MD [address] [place] [address] [phone] documented as of this encounter Visit Diagnoses Not on filedocumented in this encounter Additional Health Concerns Assessment Noted Time PHQ-9 Depression Total Score: 13 023 9:45 AM EDT documented as of this encounter Care Teams Service Line Bus Cleaner Relationship Specialty Start Date End Date Karlene Puentes MD [address] [place] [address] [phone] PCP - General Internal Medicine 03/03/23 documented as of this encounter
--- OUTSIDE RECORDS SUMMARY | 2024-10-13 10:17 | XMS_ITS | Encounter Summary ---
Author Organization [employer] Address [address] [address] Care Team Providers Care Gas Pumper Name Role Phone Hailee Avalos [employer] Primary Care Provider +1- [phone] Karlene Puentes MD Primary Care Pro vider Reason for Visit * Reason Onset Date Comments Med Refill 02/25/2023 Encounter Details Date Type Department Care Team (Late st Contact Info) Description 02/25/2023 Refill [facility] [address] [place] [phone] Hailee Avalos FNP [address] [place] [address] Dept [place] [address] Alcohol intake above recommended sensible limits; Mixed hyperlipidemia Social History Tobacco Use Types Packs/Day Years Used Date Smoking Tobacco: Every Day Cigarettes Passive Smoke Exposure: Current Smokeless Tobacco: Never Depression Answer Date Recorded Patient Health Questionnaire-9 Score 13 11/13/2022 Depression Answer Date Recorded Patient Health Questionnaire-2 [...] Description 11/17/2024 1:15 PM EDT Office Visit [facility] [address] [place] [phone] Marysol Palumbo MD [address] [place], [place] [phone] documented as of this encounter Visit Diagnoses Diagnosis Alcohol intake above recommended sensible limits Mixed hyperlipidemia documented in this encounter Additional Health Concerns Assessment Noted Time PHQ-9 Depression Total Score: 13 11/13/ 023 9:45 AM EDT documented as of this encounter Care Teams Gas Pumper Relationship Specialty Start Date End Date Hailee Avalos FNP PCP - General Family Medicine 01/15/22 03/02/23 Karlene Puentes MD [address] [place] [address] PCP - General Internal Medicine 03/03/23 documented as of this encounter
--- OUTSIDE RECORDS SUMMARY | 2024-10-13 10:17 | XMS_ITS | Encounter Summary ---
Author Organization [employer] Address [address] [facility] 7[address] [place] [address] Care Team Providers Care Pilot Plant Operator Helper Name Role Phone Karlene Puentes MD Primary Care Pro vider Reason for Visit * Reason Comments Med Refill Encounter Details Date Type Department Care Team ([facility] st Contact Info) Description 07/29/2023 Refill [facility] [address] [place] [address] Panchito Romero MD [address] [place], [place] [phone] Alcohol intake above recommended sensible limits Social History Tobacco Use Types Packs/Day Years [...] 1:15 PM EDT Office Visit [facility] [address] [place] [address] [phone] Marysol Palumbo MD [address] [place] [address] [phone] documented as of this encounter Visit Diagnoses Diagnosis Alcohol intake above recommended sensible limits documented in this encounter Additional Health Concerns Assessment Noted Time PHQ-9 Depression Total Score: 13 023 9:45 AM EDT documented as of this encounter Care Teams Pilot Plant Operator Helper Relationship Specialty Start Date End Date Karlene Puentes MD [address] [place] [address] [phone] PCP - General Internal Medicine 03/03/23 documented as of this encounter
--- OUTSIDE RECORDS SUMMARY | 2024-10-13 10:17 | XMS_ITS | Encounter Summary ---
Author Organization [employer] Address [address] [facility] 7t [place] [address] Care Team Providers Care Face Burler Name Role Phone Hailee Avalos [facility] Primary Care Provider [phone]- [phone] Karlene Puentes MD Primary Care Pro vider Encounter Details Date Type Department Care Team (Late Contact Info) Description 07/03/2022 Abstract [facility] [address] [place] [address] [phone] Provider, MD Charlene Social History Tobacco Use Types Packs/Day Years [...] suspected to have Coronavirus/COVID-19? No / Unsure 07/03/2022 1:11 PM EST documented as of this encounter Plan of Treatment Upcoming Encounters Date Type Department Care Team (Late Contact Info) Description 11/17/2024 1:15 PM EDT Office Visit [facility] [address] [place] [address] [phone] Marysol Palumbo MD [address] [place], [place] [phone] documented as of this encounter Procedures Procedure Name Priority Date/Time Associated Diagnosis Comments BI MAMMOGRAM DIAGNOSTIC BILATERAL Routine 04/30/2022 2:27 PM EST HM MAMMOGRAPHY Routine 04/30/2022 2:19 PM EST documented in this encounter Results * BI Mammogram Diagnostic Bilateral (04/30/2022 2:27 PM EST) Anatomical Region Laterality Modality Breast Bilateral Mammography Historical Provider IMOphelia BI PROCEDURES Final R esult * (ABNORMAL) Hm Mammography (04/30/2022 2:19 PM EST) HM Mammogram completed Anatomical Region Laterality Modality Other Narrative 04/30/2022 2:19 PM EST Birads 3-Diagnostic mammography at time of next annual exam, due in 12 months with targeted right breast ultrasound at same appointment. Historical Provider HEALTH MAINTENANCE Final Result documented in this encounter Visit Diagnoses Not on filedocumented in this encounter Care Teams Face Burler Relationship Specialty Start Date End Date Hailee Avalos FNP PCP - General Family Medicine 01/15/22 03/02/23 Karlene Puentes MD [address] [place] [phone] PCP - General Internal Medicine 03/03/23 documented as of this encounter
--- NOTE | 2024-10-13 10:21 | A.OFFVIS_ITS ---
Intake Visit Reasons: 6m/UA Intake Note: Patient presents for follow up visit on micro hematuria Urology Medications: none Blood Thinner: none Smoker: yes; 30yrs * Had cystoscopy with Dr. Hurt 03/2024 Ramp Supervisor Required: No Accompanied by: Self / Same As Patient Allergies No Known Allergies [NO KNOWN ALLERGIES] Allergy (Unknown, Verified 10/13/24 10:53) UNKNOWN Medication List - Last Reconciled 10/13/24 by ALEX Dietz buprenorphine-naloxone 8-2 mg (Suboxone) 2 strips sublingual DAILY cetirizine 1 tab PO DAILY PRN fluticasone propionate 50 mcg/actuation 2 sprays intranasal DAILY folic acid 1 tab PO DAILY gabapentin 1 cap PO TID multivitamin 1 tab PO DAILY thiamine HCl (vitamin B1) 1 tab PO DAILY venlafaxine 75 mg PO QAM HPI Comments Details: Ashley Stock is a very pleasant 49-year-old female patient of Dr. Toro. She has a past medical history of opioid use disorder, acute hepatitis, an xiety, nicotine dependence, and alcohol abuse. She presents to the office today for follow-up of her microscopic hematuria in the setting of nicotine dependence. Of note, patient underwent an office cystoscopy 04/17 that noted trigone metaplasia with superficial veins. Previous workup has also included a CT urogram 04/17 there is some irregularity at the bladder base on the right. The kidneys and upper tract appear unremarkable. In office urinalysis results reviewed with the patient today. 2+ microscopic hematuria pH 5.5. We did discussed importance of adequate hydration. She does have a longstanding history of nicotine dependence for over 25 years and continues to smoke approximately half a pack of cigarettes per day. She otherwise denies any known workplace chemical exposure. We discussed at length potential causes of microscopic hematuria. She denies urinary urgency, urinary frequency, incontinence, nocturia, hematuria, dysuria, foul smelling urine, changes to urinary stream, fever, and or chills. She otherwise offers no other issues or concerns at this time. Cytology 03/17 Negative for high-grade urothelial carcinoma. [facility] Medical History Opioid use disorder Acute hepatitis Anxiety Alcohol abuse Surgical History No pertinent past surgical history Family History Other No family history of coronary artery disease Social History Household Members: Significant Other Household Members Other:: boyfriends family Housing: House Do you presently have visiting nurse or other home services: No Alcohol intake: current Alcohol intake frequency: does not drink Alcohol type: hard liquor Patient Tobacco Use Status: Current everyday Tobacco user Tobacco use type: Cigarette Cigarette Packs Per Day: 0.5 Cigarettes Per Day: 10.0 Years Smoked: 25 e-Cigarette/Vaping Use: Never Used Second Hand Smoke Exposure: Yes Substance Use Type: Marijuana service: No Review of Systems Const All systems reviewed & are unremarkable except as noted in HPI and below Physical Exam Const General: cooperative, healthy appearing, comfortable, no acute distress, well developed, alert and awake Orientation/consciousness: patient oriented x3 Limitations: no limitations HEENT Head: Yes normal to inspection, Yes normocephalic and Yes atraumatic Ears: hearing grossly normal bilaterally Eyes General: appearance normal, both eyes and all related structures Neck Neck: Yes normal visual inspection and Yes trachea midline Chest Chest palpation & inspection: normal inspection of the chest Resp Effort & Inspection: normal respiratory effort and able to speak in complete sentences Cardio Rate: regular rate GI Inspection: Yes normal to inspection General: Yes no CVA tenderness Back/Spine/Pelvis Back: no CVA tenderness Skin General skin exam: no rashes or lesions noted Neuro General: patient oriented x3 Extrem General: Yes normal to inspection Psych Appearance: grossly normal and well kempt Mental Status: mental status grossly normal Speech and movement: Normal speech and movement present and Clear speech present Affect: normal affect Attitude: cooperative Thought process: Normal thought process present Thought content: Normal thought content present Insight: Fair insight present (Psych) Judgement: Fair judgement present (Psych) Results AMB Urinalysis, Automated UA Leukoctes 0 Sharonda/uL Last Edit by Sofi Truong on 10/13/24 10:31 UA Nitrite Last Edit by Sofi Truong on 10/13/24 10:31 UA Urobilinogen 0.2 mg/dL Last Edit by Sofi Truong on 10/13/24 10:31 UA Protein 15 mg/dL Last Edit by Sofi Truong on 10/13/24 10:31 UA pH 5.5 Last Edit by Pranaye Dionne on 10/13/24 10:31 UA Blood 80 Bakari/uL Last Edit by Pranaye Dionne on 10/13/24 10:31 UA Specific Blanca 1.025 Last Edit by Julio Cesaryce Dionne on 10/13/24 10:31 UA Ketone Last Edit by Sofi Truong on 10/13/24 10:31 UA Bilirubin 1 mg/dL Last Edit by Sofi Truong on 10/13/24 10:31 UA Glucose 0 mg/dL Last Edit by Sofi Truong on 10/13/24 10:31 Results Reviewed Results Reviewed: Laboratory Last Values Urine pH (Auto) 5.5 10/13/24 10:30 Specific Blanca (Auto) 1.025 10/13/24 10:30 Urine Protein (Auto) 15 mg/dL 10/13/24 10:30 Glucose (UA)(Auto) 0 mg/dL 10/13/24 10:30 Urine Blood (Auto) 80 Bakari/uL 10/13/24 10:30 Urine Bilirubin (Auto) 1 mg/dL 10/13/24 10:30 Urine Urobilinogen (Auto) 0.2 mg/dL 10/13/24 10:30 Leukocyte Esterase (Auto) 0 Sharonda/uL 10/13/24 10:30 Assessment & Plan Assessment & Plan (1) Nicotine dependence: Code(s): F17.200 - Nicotine dependence, unspecified, uncomplicated Category: Medical (2) Microscopic hematuria: Code(s): R31.29 - Other microscopic hematuria Category: Medical Plan In office urinalysis results reviewed with the patient today; as noted above; will send for urine cytology. We discussed potential causes of microscopic hematuria as well as further workup in risks and benefits of these interventions. Will continue with surveillance monitoring at this time. We discussed the importance of limiting/quitting nicotine dependence for overall health and well-being. She currently denies any bothersome urinary issues. She reports to be happy with current voiding parameters. Follow-up in 6 months; or sooner with any issues, concerns, and or questions. Orders: Orders Urine Cytology Today R31.29 - Other microscopic hematuria AMB Urinalysis Automated Today Z13.9 - Encounter for screening, unspecified Patient Instructions: The patient had an opportunity to ask questions regarding the treatment plan. All questions were answered. Physical exam, labs, and imaging were discussed and reviewed in detail. As well as risks, benefits, and discussion of treatment choices. No major barriers to understanding were identified. The patient expressed understanding and agreement with the above treatment plan. The patient was made aware they should contact our office by phone for worsening of their current condition, the appearance of new symptoms, or with any questions or concerns. Compliance is encouraged with any medications and follow up testing that is ordered. It is a privilege to be allowed the opportunity to participate in? your urological care.? Again, if you have any questions or concerns If you have any questions or concerns please do not hesitate to contact me. The office is [phone]. This note is constructed using voice recognition software. While every effort has been made to ensure accuracy youth pastor errors may have been included. Yours sincerely, BACILIO Dietz Coding Level of Care Code Est Pt Level 3 (24060) Diagnoses Nicotine dependence F17.200 Microscopic hematuria R31.29
== END 2024-10-13 10:51 | disposition home or self-care (01) ==
LOC: HO.HUSH 09:56
PROVIDERS: PCP Student in an Organized Health Care Education/Training Program; Visit Provider Nurse Practitioner Family
DX: F17.200 Nicotine dependence, unspecified, uncomplicated (principal); R31.29 Other microscopic hematuria; Z13.9 Encounter for screening, unspecified
CPT/HCPCS: 99213

== ENCOUNTER 2024-11-15 14:18 | Outpatient (REF) | payer MEDICAID, SELFPAY ==
--- NOTE | ~2024-11-15 | XR_ITS ---
EXAMINATION: XR CHEST CLINICAL INFORMATION: cough, SOB, bronchitis, symptoms for 9 days COMPARISON: January 01, 2020 TECHNIQUE: 2 views of the chest were obtained. FINDINGS: Cardiac and mediastinal silhouette is within normal limits. Minimal coarse markings are present in the lungs. There is no pleural effusion. Bony structures are unremarkable. XR/XR chest 2V IMPRESSION: Nonspecific mildly coarse interstitial markings. Electronically signed by: Brian Pisano MD 11/15/2024 02:42 PM EDT
== END 2024-11-15 14:19 | disposition home or self-care (01) ==
LOC: HO.HHCX 14:18
PROVIDERS: Visit Provider Internal Medicine
DX: J40 Bronchitis, not specified as acute or chronic (principal)
CPT/HCPCS: 71046

== ENCOUNTER → 2024-11-15 14:19 | Outpatient (BNV) | payer MEDICAID, SELFPAY | PROVIDERS: Visit Provider Radiology Diagnostic Radiology | DX: R05.9 Cough, unspecified (principal); R06.02 Shortness of breath; J20.9 Acute bronchitis, unspecified | CPT/HCPCS: 71046 ==

== ENCOUNTER 2025-03-02 13:04 | Outpatient (REF) | payer MEDICAID, SELFPAY ==
[2025-03-02 17:09] LABS: Alanine Aminotransferase 28 U/L (0-31); Albumin Level 4.5 g/dL (3.5-5.0); Alkaline Phosphatase 130 U/L (39-117); Aspartate Amino Transferase 26 U/L (5-31); Total Protein 7.3 g/dL (6.5-8.0)
[2025-03-03 08:28] LABS: ~Hepatitis A Antibody IgG 0.36 S/CO (0.00-0.99)
[2025-03-03 09:08] LABS: HBS Num1 1.00 mIU/mL (0-7.99); HBc Num1 0.07 S/CO (0.00-0.79); HBsAGNum1 0.29 S/CO (0.00-0.99); Hepatitis B Surface Antigen Negative (Negative); ~HepC Num1 15.19 S/CO (0.00-0.79); ~Hepatitis B Surface Antibody NONREACTIVE (Nonreactive); ~Hepatitis C Antibody Reactive (Nonreactive)
[2025-03-07 15:19] LABS: HCV Log PCR <1.18 NOT DETECTED Log IU/mL (NOT DETECTED); HepC Viral Load <15 NOT DETECTED IU/mL (NOT DETECTED)
== END 2025-03-02 13:05 | disposition home or self-care (01) ==
LOC: HO.HHCL 13:04
PROVIDERS: Visit Provider Family Medicine
DX: Z11.59 Encounter for screening for other viral diseases (principal); F11.20 Opioid dependence, uncomplicated
CPT/HCPCS: 36415; 80076; 86704; 86706; 86708; 86803; 87340; 87522

== ENCOUNTER 2025-05-05 12:04 | Outpatient (REF) | payer MEDICAID, SELFPAY | END 2025-05-05 12:05 | disposition home or self-care (01) | LOC: HO.LNP 12:04 | PROVIDERS: Visit Provider Family Medicine | DX: F11.20 Opioid dependence, uncomplicated (principal) | CPT/HCPCS: 80353 ==